=== PATIENT | female | born 1960 | race Hispanic/Latino ===

== ENCOUNTER 2016-09-09 06:07 | Day surgery (SDC) | payer OTHER, MEDICARE ==
[2016-08-20 10:06] VITALS: BMI 21.7
[2016-09-09 06:50] LABS: CALCIUM 8.5 mg/dL (8.4-10.5)
[2016-09-09] MEDS ORDERED: Bupivacaine 0.5% Inj(30mL) ONE ×2 (07:31→07:35)
[2016-09-09] MEDS ORDERED: Thrombin Topical 20,000 Intl Units Spray Kit TOP ONE (07:31)
[2016-09-09] MEDS ORDERED: Lidocaine 1% Inj (20ml) ONE (07:31)
[2016-09-09] MEDS ORDERED: Lidocaine 2% Inj (20ml) ONE (07:35)
[2016-09-09] MEDS ORDERED: Midazolam 2 MG/2 ML VIAL ONE ×2 (07:54→08:19)
[2016-09-09] MEDS ORDERED: Insulin Regular 100 units/ml ONE (07:58)
[2016-09-09] MEDS ORDERED: Phenylephrine 10 mg/ml Inj ONE (09:45)
[2016-09-09] MEDS ORDERED: Acetaminophen IV 1,000 MG in Premixed IV 100 EA IVPB PRN (10:09)
[2016-09-09] MEDS ORDERED: Oxycodone/Acetaminophen 5/325 mg Tab PO PRN (10:10)
--- NOTE | 2016-09-09 10:15 | PCM.SURG1 ---
Surgeon's Initial Post Op Note - Surgeon's Notes Surgeon: Dr. Arnold Chef Saucier: Dr. Cassidy PGY2, Dr. Martini PGY1 Type of Anesthesia: IV Sedation, Local Pre-Operative Diagnosis: End Stage Renal Disease Operative Findings: see operative note Post-Operative Diagnosis: same Operation Performed: Left Brachial AV Fistula Specimen/Specimens Removed: none Estimated Blood Loss: EBL {In ML}: 5 Drains Used: No Drains Post-Op Condition: Good Date of Surgery/Procedure: 09/09/16 Time of Surgery/Procedure: 09:30
[2016-09-09] MEDS ORDERED: Acetaminophen IV IVPB ONE (10:30)
[2016-09-09 11:02] VITALS: PULSE 56
[2016-09-09 11:33] VITALS: RESP 20
[2016-09-09 12:01] VITALS: BP 146/67; TEMP 98; O2SAT 95
--- NOTE | 2016-09-21 09:42 | OP ---
DATE OF THE OPERATION: 09/09/2016 PREOPERATIVE DIAGNOSES: End-stage renal disease and coronary artery disease. POSTOPERATIVE DIAGNOSES : End-stage renal disease and coronary artery disease. PROCEDURE PERFORMED: 1. Left upper arm vein mapping in preparation for the fistula creation. 2. Left upper arm AV fistula creation via the cephalic vein transposition. SURGEON: Ralph Arnold MD GEAR CUTTER: Dr. Cassidy ANESTHESIOLOGIST: Karthik Jarrell MD TYPE OF ANESTHESIA: IV sedation with local anesthesia. ESTIMATED BLOOD LOSS: Minimal. SPECIMEN: None. INDICATIONS FOR THE PROCEDURE: The patient is a 55-year-old female with significant history of cardiac failure who has been on dialysis via the tunneled catheter and is currently dialysis dependent. The patient was brought in creation of an AV fistula in order to remove the tunneled catheter and avoid infections. DESCRIPTION OF PROCEDURE: The patient was brought to the operating room and placed on operating table in a supine position. The patient was connected to EKG, blood pressure, and pulse monitors. The patient then underwent MAC anesthesia and was prepped and draped in the usual sterile fashion. First, using sterile probe, careful evaluation of the upper arm veins revealed the presence of a cephalic vein, which was decent size measuring about 4 to 5 mm in the upper arm and about 4 mm in the area of the antecubital fossa. The brachial artery was all set about 3.5 mm at that location. The only __245___ was that the cephalic vein appear to be located quite laterally and needed to be transposed in order to reapproximate it to the brachial artery. Once this evaluation was done and the vein was marked on the skin as well as all the side branches were marked, I then proceeded with the operation. First a standard time-out procedure took place and everybody in the room agreed as to the patient's identify, diagnoses, and procedure to be performed. Using lidocaine mixed with Marcaine, the antecubital fossa area of incision was infiltrated and careful incision was made transversely. Careful dissection was done through the subcutaneous fat until the cephalic vein was exposed laterally. The cephalic vein was then carefully mobilized after being marked in for appropriate positioning and then carefully all the side branches were ligated using 4-0 Silk ties. Flap was raised superiorly in order to be able to mobilize adequate length of the cephalic vein in order to bring it down to the brachial artery. Once this was done and the patient received 4000 units of heparin to circulate prior to the cross clamping for 2 minutes, I then proceeded with dissecting out the brachial artery and elevated it on the vessel loops. The cephalic vein was transected distally and brought over to the brachial artery. A standard end-to-side anastomosis was created using 6-0 Prolene stitches in a dividing fashion. The anastomosis was about 1.5 cm long. Once it completed, the anastomosis was tested by opening the first distal artery and then proximal flow. There was good palpable thrill in the vein for about 10 cm from the anastomosis. There was excellent hemostasis. The wound was now copiously irrigated and all the irrigant fluid was suctioned out and the patient's wound was closed using 3-0 Vicryl for deep dermal layers and 4-0 Monocryl for skin. Sterile Dermabond dressing was applied to the wound. The patient tolerated the procedure well without complications. The patient was awakened and transferred to the recovery room for further observation. Ralph Arnold MD
== END 2016-09-09 12:23 | disposition home or self-care (01) ==
LOC: SDS 06:07
PROVIDERS: ATTEND General Practice
DX: I50.42 Chronic combined systolic (congestive) and diastolic (congestive) heart failure (principal); I13.2 Hypertensive heart and chronic kidney disease with heart failure and with stage 5 chronic kidney disease, or end stage renal disease; E11.22 Type 2 diabetes mellitus with diabetic chronic kidney disease; N18.6 End stage renal disease; I25.10 Atherosclerotic heart disease of native coronary artery without angina pectoris; I38 Endocarditis, valve unspecified; D64.9 Anemia, unspecified; E78.5 Hyperlipidemia, unspecified; Z79.4 Long term (current) use of insulin; E11.42 Type 2 diabetes mellitus with diabetic polyneuropathy
CPT/HCPCS: 36415; 36821; 80048; G0365; J0131; J0690; J1644 ×2; J2250; J2370; J3010

== ENCOUNTER 2017-01-02 23:21 | Inpatient (IN) | payer MEDICARE, OTHER ==
[2017-01-02 23:25] VITALS: BMI 24.3
--- NOTE | 2017-01-02 23:55 | ED PDOC ---
Arrival/HPI - General Time Seen by Provider: 01/02/17 23:30 Historian: Patient - History of Present Illness Narrative History of Present Illness (Text): 01/02/17 23:45 Gabriela Burgos is a 56 year old female, whose past medical history includes CAD with coronary stents, IDDM, stage IV chronic kidney disease, hypertension, CHF, and chronic anemia, who presents to the Emergency department complaining of feeling of shortness of breath tonight.Patient denies any associated chest pain. Patient notes she was fully dialyzed earlier today without any issues. Patient states she took nebulizer treatments at home without significant relief. Patient denies any nausea, vomiting, diarrhea, back pain, neck pain, headache, dizziness, or any other complaints. Symptom Onset: Gradual Symptom Course: Unchanged Activities at Onset: Light Context: Home Past Medical History - Provider Review Nursing Documentation Reviewed: Yes - Infectious Disease Hx of Infectious Diseases: None - Tetanus Immunization Tetanus Immunization: Unknown - Reproductive Menopause: Yes - Cardiac Hx Hypertension: Yes Hx Pacemaker: No - Pulmonary Hx Respiratory Disorders: No - Neurological Hx Paralysis: No - HEENT Hx HEENT Disorder: No - Renal Hx Renal Disorder: Yes (Stage IV) Date of Last Dialysis Treatment: 01/02/17 - Endocrine/Metabolic Hx Endocrine Disorders: Yes Hx Diabetes Mellitus Type 1: Yes - Hematological/Oncological Hx Blood Transfusion Reaction: No (SEVERE REACTION TO IRON INFUSION) - Integumentary Hx Dermatological Disorder: Yes (BILATERAL LEG EDEMA + 2,DEPENDENT EDEMA MAINLY TO ABOVE KNEE AREA.TATTOOS.) - Musculoskeletal/Rheumatological Hx Musculoskeletal Disorders: No - Gastrointestinal Hx Gastrointestinal Disorders: No - Genitourinary/Gynecological Hx Genitourinary Disorders: No (REMOVAL OF PRECANCEROUS CELLS/ UTERUS) - Psychiatric Hx Emotional Abuse: No Hx Physical Abuse: No Hx Substance Use: No - Surgical History Hx Cardiac Catheterization: Yes (04/2015) Hx Coronary Stent: Yes (CX/RCA) - Anesthesia Hx Anesthesia: Yes Hx Anesthesia Reactions: No Hx Malignant Hyperthermia: No - Suicidal Assessment Feels Threatened In Home Enviroment: No Family/Social History - Physician Review Nursing Documentation Reviewed: Yes Family/Social History: Unknown Family HX Smoking Status: Former Smoker Hx Alcohol Use: No Hx Substance Use: No Hx Substance Use Treatment: No Allergies/Home Meds Allergies/Adverse Reactions: Allergies iron sucrose complex [From Venofer] Allergy (Severe, Verified 01/02/17 23:25) ITCHING,SWELLING OCCURED 11/07 9AM AT HOSPITAL. ONLY REPORTED ITCHING, NO SOB Home Medications: Home Meds Medication Instructions Recorded Confirmed Alprazolam 0.5 mg PO BID PRN 04/19/15 01/02/17 Insulin Detemir [Levemir] 10 unit SC HS 03/05/16 01/02/17 Insulin Lispro [humALOG] 7 units SC TID PRN 03/05/16 01/02/17 Calcium Acetate [Phoslo] 2 tab PO ACTID 05/06/16 01/02/17 amLODIPine [Norvasc] 5 mg PO DAILY 05/06/16 01/02/17 traZODone [trazODONE HYDROCHLORIDE] 50 mg PO HS 05/06/16 01/02/17 Albuterol/Ipratropium [Duoneb 3 3 ml IH Q4H 08/20/16 01/02/17 MG/3 Ml-0.5 MG/3 Ml 3 Ml] traMADol [Ultram] 50 mg PO Q6 09/09/16 01/02/17 Furosemide [Lasix] 1 tab PO DAILY 01/02/17 01/02/17 Lanthanum [Fosrenol] 1 tab PO DAILY 01/02/17 01/02/17 Review of Systems - Physician Review All systems were reviewed & negative as marked: Yes - Review of Systems Constitutional: Normal. absent: Fevers Eyes: Normal ENT: Normal Respiratory: SOB. absent: Cough Cardiovascular: Chest Pain Gastrointestinal: Normal. absent: Abdominal Pain, Diarrhea, Nausea, Vomiting Genitourinary Female: Normal. absent: Dysuria, Frequency, Hematuria, Urine Output Changes Musculoskeletal: Normal. absent: Back Pain, Neck Pain Skin: Normal. absent: Rash Neurological: Normal. absent: Headache, Dizziness Endocrine: Normal Hemo/Lymphatic: Normal Psychiatric: Normal Physical Exam Vital Signs Reviewed: Yes Vital Signs Temp Pulse Resp BP Pulse Ox 01/03/17 03:32 18 01/03/17 01:54 EST 98.8 F 62 18 106/84 01/03/17 01:21 EDT 98.4 F 67 18 122/80 01/02/17 23:33 100.4 F H 82 18 107/54 L 94 L Temperature: Febrile Blood Pressure: Normal Pulse: Regular Respiratory Rate: Normal Appearance: Positive for: Well-Appearing, Non-Toxic, Comfortable Pain Distress: None Mental Status: Positive for: Alert and Oriented X 3 Finger Stick Blood Glucose: 330 - Systems Exam Head: Present: Atraumatic, Normocephalic Pupils: Present: PERRL Extroacular Muscles: Present: EOMI Conjunctiva: Present: Normal Mouth: Present: Moist Mucous Membranes Neck: Present: Normal Range of Motion Respiratory/Chest: Present: Rhonchi. No: Respiratory Distress, Accessory Muscle Use Cardiovascular: Present: Regular Rate and Rhythm, Normal S1, S2. No: Murmurs Abdomen: Present: Normal Bowel Sounds. No: Tenderness, Distention, Peritoneal Signs Back: Present: Normal Inspection Upper Extremity: Present: Normal Inspection. No: Cyanosis, Edema Lower Extremity: Present: Normal Inspection. No: Edema Neurological: Present: GCS=15, CN II-XII Intact, Speech Normal Skin: Present: Warm, Dry, Normal Color. No: Rashes Psychiatric: Present: Alert, Oriented x 3, Normal Insight, Normal Concentration Medical Decision Making ED Course and Treatment: 01/02/17 23:45 Impression: 56 year old female complaining of shortness of breath and chest pain tonight. Plan: -- EKG -- CXR -- Labs, cardiac enzymes, BNP, blood culture -- Reassess and disposition Prior Visits: Notes and results from previous visits were reviewed. On 03/05/2016, pt was seen in the Emergency department for shortness of breath, chest pain, and decreased appetite. Pt was admitted to the hospital for further evaluation. Progress Notes: Reviewed EKG, NSR at 77 bpm. LVH with repolarization abnormality. Non-specific ST/T wave changes. Unchanged from previous EKG on 08/20/2016. 01/03/17 01:04 EDT Labs noted, Hgb: 6.8, Hct: 20.8. Blood type and screen ordered. Will transfuse pt. 01/03/17 01:43 EDT Reviewed radiology, CXR shows no acute processes. 01/03/17 01:52 EDT Case discussed with Dr. Cardona, who is aware and agrees with plan. Accepts pt in to his service. Pt will be admitted to Telemetry for anemia and dyspnea. Requests Dr. Gleason on consult. - Lab Interpretations Lab Results: 01/03/17 00:08 01/03/17 00:08 Lab Results 01/03/17 00:08: WBC 12.0 H D, RBC 2.22 L, Hgb 6.8 L*, Hct 20.8 L*, MCV 93.7, MCH 30.6, MCHC 32.7, RDW 13.4, Plt Count 259, MPV 10.1 01/03/17 00:08: Sodium 129 L, Potassium 3.2 L, Chloride 88 L, Carbon Dioxide 27 , Anion Gap 17, BUN 29 H, Creatinine 3.8 H, Est GFR ( Amer) 15, Est GFR ( Non-Af Amer) 12, Random Glucose 263 H, Calcium 8.6, Total Bilirubin 0.7, AST 23 , ALT 14, Alkaline Phosphatase 96, Lactate Dehydrogenase 485, Total Creatine Kinase 61, Troponin I 0.78 H*, NT-Pro-B Natriuret Pep 72775 H, Total Protein 6.5 , Albumin 3.5, Globulin 3.0, Albumin/Globulin Ratio 1.2 01/03/17 00:08: PT 12.6 H, INR 1.15 H, APTT 21.7 L I have reviewed the lab results: Yes - RAD Interpretation Radiology Orders: 01/02/17 23:47 CHEST PORTABLE [RAD] Stat Technical Support Associate: ED Physician - EKG Interpretation Interpreted by ED Physician: Yes Type: 12 lead EKG - Medication Orders Current Medication Orders: Discontinued Medications Ceftriaxone Sodium (Rocephin 1 Gram Ivpb) 1 gm in 100 mls @ 200 mls/hr IV ONCE STA PRN Reason: Protocol Stop: 01/03/17 02:16 Last Admin: 01/03/17 03:38 Dose: 200 mls/hr eMAR Start Stop Document 01/03/17 03:38 MARIELENA (Rec: 01/03/17 03:38 MARIELENA [id number]) Intravenous Solution Start Date 01/03/17 Start Time 03:38 End Date 01/03/17 End time 04:08 Total Infusion Time 30 - Scribe Statement The provider has reviewed the documentation as recorded by the Scribriaz Franklin All medical record entries made by the Scribe were at my direction and personally dictated by me. I have reviewed the chart and agree that the record accurately reflects my personal performance of the history, physical exam, medical decision making, and the department course for this patient. I have also personally directed, reviewed, and agree with the discharge instructions and disposition. Disposition/Present on Arrival - Present on Arrival Any Indicators Present on Arrival: No History of DVT/PE: No History of Uncontrolled Diabetes: Yes Urinary Catheter: No History of Decub. Ulcer: No History Surgical Site Infection Following: None - Disposition Have Diagnosis and Disposition been Completed?: Yes Diagnosis: Anemia, ESRD (end stage renal disease) Disposition: HOSPITALIZED Disposition Time: 01:00 Condition: STABLE
[2017-01-03 00:35] LABS: ALB/GLOB RATIO 1.2 (1.1-1.8); BILIRUBIN,TOTAL 0.7 mg/dL (0.2-1.3); CALCIUM 8.6 mg/dL (8.4-10.5); POTASSIUM 3.2 mmol/L (3.6-5.0); TOTAL PROTEIN 6.5 g/dL (5.8-8.3)
[2017-01-03 00:42] LABS: MEAN CELL VOLUME 93.7 fl (80.0-105.0); MEAN CORPUSCULAR HEMOGLOBIN 30.6 pg (25.0-35.0); MEAN CORPUSCULAR HGB CONC 32.7 g/dl (31.0-37.0); MEAN PLATELET VOLUME 10.1 fl (7.0-11.0); RED CELL DISTRIBUTION WIDTH 13.4 % (11.5-14.5)
[2017-01-03 00:44] LABS: HEMATOCRIT 20.8 % (36.0-48.0)
[2017-01-03 00:49] LABS: INR 1.15 (0.93-1.08); PARTIAL THROMBOPLASTIN TIME 21.7 Seconds (25.1-36.5); TROPONIN I 0.78 ng/mL
[2017-01-03 01:32] LABS: VENOUS BLOOD GAS BASE EXCESS 7.6 mmol/L (0.0-2.0); VENOUS BLOOD PH 7.48 (7.32-7.43)
[2017-01-03] MEDS ORDERED: cefTRIAXone 1 gm 1 GM/100 ML BAG IV STA (01:47)
[2017-01-03] MEDS ORDERED: Albuterol-Ipratrop 3 mg / 0.5 (3 ml) UD IH PRN (08:04)
[2017-01-03] MEDS: Insulin Reg-MEDIUM-Coverage SC SCH ×4 (09:16→21:26)
--- NOTE | 2017-01-03 09:44 | RAD ---
HISTORY: Shortness of breath. COMPARISON: 08/20/2016. FINDINGS: LUNGS: No active pulmonary disease. PLEURA: No significant pleural effusion identified, no pneumothorax apparent. CARDIOVASCULAR: No radiographic findings to suggest acute or significant cardiovascular disease. Venous access catheter in stable, satisfactory position. OSSEOUS STRUCTURES: No significant abnormalities. VISUALIZED UPPER ABDOMEN: Normal. OTHER FINDINGS: None. IMPRESSION: No active disease. No significant interval change compared to the prior examination(s). Please note: No preliminary interpretation of this examination rendered by emergency department personnel (Physician and/or PA were non-compliant in providing, as requested, preliminary report of their findings/ observations).
--- NOTE | 2017-01-03 11:04 | CON ---
CARDIOLOGY CONSULTATION DATE OF CONSULTATION: 01/03/2017 HISTORY: The patient is a 56-year-old woman who presents with chest pain. She was found to have mildly elevated troponins consistent with a non-STEMI. The patient's past medical history is notable for end-stage renal disease in which she is currently on dialysis. She has documented aortic stenosis in which they have been plans for TAVR. Once her fistula is matured, her CHF symptoms can be controlled with dialysis. She has had documented coronary artery disease in the past in which cardiac catheterization intervention has been limited due to her recurrent CHF secondary to her end-stage renal disease. Her cardiac risk factors include diabetes mellitus, hypertension, and hypercholesterolemia. SOCIAL HISTORY: The patient is a former smoker. REVIEW OF SYSTEMS: A 14-point review of systems was reviewed in detail. There is no more angina. Her dyspnea is resolved. She is receiving blood for low hemoglobin. PHYSICAL EXAMINATION: VITAL SIGNS: Blood pressure is 132/96, the heart rate is in the 90s. NECK: Negative JVD. LUNGS: Decreased breath sounds without rales. HEART: Reveals 3/6 systolic ejection murmur. EXTREMITIES: Without edema. EKG shows normal sinus rhythm with diffuse ST depressions. LABORATORY DATA: Hemoglobin is 6.8. Chemistries, troponin is 0.78 with a ProBNP of 71,000; glucose is 263. IMPRESSION: 1. Non-ST elevation myocardial infarction. 2. History of critical aortic stenosis. 3. History of multivessel coronary artery disease. 4. End-stage renal disease. 5. Diabetes mellitus. 6. Congestive heart failure. 7. Chronic obstructive pulmonary disease. Given these findings, the patient is receiving 2 units of packed red blood cells today. In the morning, we will schedule for a cardiac catheterization for angioplasty of her critical coronary lesions. Once this is done, the patient will have dialysis. After dialysis and documented maturity of her shunt, we will remove her central line. Once this is able to be done, we will transfer the patient to [facility] for TAVR. William Chauhan MD
[2017-01-03] MEDS ORDERED: Insulin Lispro 1 UNITS/0.01 ML SC SCH (11:30)
--- NOTE | 2017-01-03 12:22 | CARD ---
APPROVED REPORT EKG Measurement Heart [id number] CT [id number] [id number] <Conclusion> Normal sinus rhythm Left ventricular hypertrophy with repolarization abnormality Consider lateral ischemia Prolonged QT Abnormal ECG
[2017-01-03] MEDS: Albuterol-Ipratrop 3 mg / 0.5 (3 ml) UD IH SCH ×2 (13:51→20:16)
[2017-01-03] MEDS ORDERED: Insulin Regular 1 UNITS/0.01 ML ML SC STA (17:06)
[2017-01-03] MEDS ORDERED: Insulin Lispro 1 UNITS/0.01 ML SC ONE (17:15)
--- NOTE | 2017-01-03 18:17 | CON ---
NEPHROLOGY CONSULTATION HISTORY OF PRESENT ILLNESS: A 56-year-old female with past medical history of hypertension, diabetes, CAD status post stent 04/2015) severe aortic stenosis and ESRD, on hemodialysis (since 2015, TTS at [facility] under [facility]), presented to ED yesterday with sudden onset of shortness of breath and chest pain, found to be severely anemic. Nephrology being consulted for ESRD care. The patient reports feeling tired since several days. However, went to dialysis session yesterday morning without incident; denies having had any shortness of breath at that time; however, late yesterday evening the patient was sitting on sofa and started experiencing shortness of breath and chest pressure (described as someone sitting on her). The patient otherwise denies any overt bleeding, denies any black stools, denies any nausea or vomiting, denies any bleeding from left arm AV fistula. PAST MEDICAL HISTORY: As above, status post RCA stent in 04/2015; the patient in need of TAVR procedure; however, was awaiting discontinuation of dialysis catheter prior to procedure. SOCIAL HISTORY: Previous smoker. FAMILY HISTORY: . REVIEW OF SYSTEMS: CONSTITUTIONAL: Reports feeling tired also with chills yesterday. HEENT: Sore throat since last 3 days, otherwise no blurry vision. RESPIRATORY: Reports some cough. CARDIOVASCULAR: As per HPI. GASTROINTESTINAL: As per HPI. GENITOURINARY: Has been urinating less lately, diuretic changed from Lasix to torsemide recently, denies any dysuria. MUSCULOSKELETAL: Reporting sharp joint pains involving her ankles lately, otherwise, has been having left hand pain associated with her AV fistula placement but is improving. SKIN: . PSYCHIATRIC: . NEUROLOGIC: Reporting some feeling of tinnitus involving her right ear. PHYSICAL EXAMINATION: VITAL SIGNS: Blood pressure 122/57, heart rate 69, respirations 16, temperature 98.9, O2 sat documented less than 94%. GENERAL: No distress. Conversing coherently in full sentences. HEENT: Moist mucous membranes. Nonicteric. NECK: No cervical lymphadenopathy. RESPIRATORY: Mild right basal rales otherwise clear to auscultation bilaterally. No rhonchi, no wheezes. CARDIOVASCULAR: Loud systolic murmur (chronic). No gallops, no rubs. GASTROINTESTINAL: Abdomen is soft, nontender, nondistended. GENITOURINARY: No bladder distention. EXTREMITIES: No leg edema. SKIN: Warm. No cyanosis. PSYCHIATRIC: Normal mood, normal affect. NEUROLOGIC: 5/5 bilateral upper and lower extremity motor. LABORATORY DATA: On presentation, CBC: WBC 12.0, hemoglobin 6.8, hematocrit 20.8, platelet 259. Chemistry panel: Sodium 129, potassium 3.2, chloride 88, bicarb 27, BUN 29, creatinine 3.8, glucose 263, calcium 8.6, troponin 0.78, albumin 3.5. Pro-BNP 71,100. Troponin increasing this morning to 5.03. Chest x-ray directly visualized, appears clear. No pulmonary venous congestion apparent. ASSESSMENT AND PLAN: 1. Symptomatic anemia. The patient with hemoglobin of 10.6 last month which was in normal range for dialysis. The patient with low iron saturation, and therefore, was loaded with IV iron. Repeat labs in early this month showed hemoglobin had dropped to 7.8 and iron saturation was still low; no overt history of blood loss; however, suspect GI bleeding in the patient with otherwise stable hemoglobin previously. Agree with blood transfusion. Recommend GI consultation to assess for possible upper and/or lower endoscopy. 2. Non-ST segment elevation myocardial infarction. The patient with history of coronary artery disease, current non-ST segment elevation myocardial infarction possibly due to demand ischemia in the setting of symptomatic anemia; however, in light of previous history we will await cardiology;s decision for possible cardiac cath. 3. Severe aortic stenosis. The patient is in need of TAVR procedure, especially with finding of mild systolic dysfunction seen on previous echo; clubhouse attendant at tertiary center is following and wanted hemodialysis catheter to be discontinued before attempting placement of any prosthetic valve to avoid infectious complications; the patient now has a newly placed left arm AV fistula which is being used adequately; HD catheter scheduled to come out in about 10 days. 4. End-stage renal disease, on hemodialysis, relatively stable electrolyte status. The patient with mild rales on exam and may be developing volume overload in the setting of PRBC transfusion; the patient still makes some urine, and therefore, we will give her 80 mg of IV Lasix after each transfusion. 5. Coronary artery disease-mineral bone disease. The patient on sevelamer 2 tablets with meals. We will continue the same for hyperphosphatemia which has been relatively well controlled of late. 6. Hypertensive chronic kidney disease. The patient on metoprolol 50 mg b.i.d. and amlodipine 5 mg daily and torsemide 100 mg b.i.d., giving IV Lasix as well as torsemide as mentioned above. Thank you for this consult. We will be following closely. Tom Gleason MD
[2017-01-03] MEDS ORDERED: Insulin Detemir 100 units/ml Vial (Levemir) SC SCH (22:00)
--- NOTE | 2017-01-04 01:19 | HP ---
HISTORY OF PRESENT ILLNESS: The patient is a 56 year old woman with a past medical history of CAD s/p PCI with stent placment, chronic systolic heart failure, severe (pending TAVR), ESRD on HD and anemia of chronic disease who presented to [facility] ED with a several day history of progressively worsening substernal chest discomfort, lethargy and malaise. The patient has reported increasing fatigability over the preceding several days associated with marked dyspnea with exertion. She denied melena, hematochezia, vaginal bleed or bright red blood per rectum. Given her underlying cardiac illness she opted for ED evaluation given her symptoms. Upon arrival to the ED she was noted to be afebrile and hemodynamically stable. Physical examination was largely unremarkable. Laboratory studies on admission demonstrated Hb of 6.8, (baseline Hb 9-10) and an elevated troponin of 0.78. EKG demonstrated no changes. She was subsequently admitted to the telemetry villeda for management of [id number] PR, symptomatic anemia, and acute on chronic systolic heart failure exacerbation. PAST MEDICAL HISTORY: As per HPI, also IDDM, HTN, hyperlipidemia PAST SURGICAL HISTORY: As per HPI. MEDICATIONS: Aspirin 81 mg p.o. daily, Plavix 75 mg p.o. daily, Lipitor 40 mg p.o. daily, Norvasc 5 mg p.o. daily, Lopressor 50 mg p.o. b.i.d., Lasix 40 mg p.o. daily, Levemir 10 units SC at bedtime, Humalog 7 units SC t.i.d. with meals , Trazodone 50 mg p.o. at bedtime. ALLERGIES: IRON SUCROSE COMPLEX. FAMILY HISTORY: Noncontributory. SOCIAL HISTORY: The patient report a former 30-pack year smoking history, but quit approximately 16 months ago. She reports social alcohol use and denies illicit drug abuse. REVIEW OF SYSTEMS: A 14-point review systems is negative except as per HPI. PHYSICAL EXAMINATION: VITAL SIGNS: Temperature 98.7, pulse 69, blood pressure 124/59, respiratory rate 18, oxygen saturation 96% on 2 liters nasal cannula. GENERAL: No apparent distress. HEENT: PERRL. EOMI. Mild conjunctival pallor is noted. No scleral icterus noted. NECK: No JVD. LUNGS: Decreased breath sounds at the bases with few scattered rhonchi. CARDIOVASCULAR: Regular rate and rhythm. Normal S1 and S2. Grade 4/6 systolic ejection murmur to right upper sternal border. ABDOMEN: Normoactive bowel sounds. Soft, nontender, nondistended. EXTREMITIES: 1+ lower extremity edema bilaterally. NEUROLOGIC: Awake, alert, and oriented x3. No focal motor deficit. LABORATORY DATA: WBC 12, hemoglobin 6.8, hematocrit 21, platelets 259. Sodium 129, potassium 3.2, chloride 88, bicarb 27, BUN 29, creatinine 3.8, glucose 257, troponin 0.78, 5.03 (2 sets), BNP 71,100. IMAGING STUDIES: Chest x-ray demonstrates no active disease. DIAGNOSTIC STUDIES: EKG demonstrates normal sinus rhythm at 77 beats per minute with nonspecific ST- T changes. ASSESSMENT: The patient is a 56 year old woman with a multiple medical comorbidities including CAD s/p PCI with stent, chronic systolic heart failure, severe , ESRD on HD and anemia of chronic disease who presented for evaluation of a several day history of worsening malaise, fatigue and dyspnea and was admitted to the telemetry villeda for management of [id number] myocardial infarction and severe symptomatic anemia. PLAN: 1. NSTEMI. Input from Dr. Chauhan noted and appreciated. The patient is scheduled for cardiac catheterization tomorrow. In the interim, we will monitor hemodynamics and cycle cardiac enzymes. Continue with aspirin, Plavix and beta blockade. 2. Anemia of chronic disease secondary to underlying chronic kidney disease with acute drop in hemoglobin. The patient noted to have a baseline hemoglobin of 9 to 10. She denies any overt blood loss. We will consult with Dr. Rubi for further evaluation. 3. Chronic systolic heart failure. As above input from Dr. Chauhan noted. Repeat TTE is pending. 4. ESRD on HD. Input from Dr. Gleason noted. The patient to be scheduled for hemodialysis after cardiac catheterization tomorrow. 5. Hypertension. Blood pressure controlled. Continue with current medication. 6. CAD s/p PCI with stent placement. Continue with aspirin, Plavix and Lipitor. 7. COPD. Continue with supplemental oxygen and bronchodilators as needed. 8. IDDM. Continue with Levemir 10 units SC at bedtime and Humalog 7 units SC t.i.d. with meals. 9. Severe aortic stenosis. Arrangements will be made to pursue TAVR once the patient's AV fistula has matured. 10. Hyperlpidemia. Continue Lipitor 40mg PO daily 11. Prophylaxis, GI prophylaxis not indicated as the patient is eating. DVT prophylaxis not indicated as the patient is ambulatory. CODE STATUS: Full code. Ole Cardona MD MTDD
[2017-01-04] MEDS: Albuterol-Ipratrop 3 mg / 0.5 (3 ml) UD IH SCH ×4 (01:38→19:37)
[2017-01-04 06:34] LABS: BASO # 0.01 K/mm3 (0.0-2.0); BASO % 0.1 % (0.0-3.0); EOS # 0.2 (0.0-0.7); EOS % 1.4 % (1.5-5.0); GRAN # 8.28 (1.4-6.5); GRAN % 75.2 % (50.0-68.0); HEMATOCRIT 31.5 % (36.0-48.0); LYMPH # 1.6 (1.2-3.4); LYMPH % 14.9 % (22.0-35.0); MEAN CORPUSCULAR HEMOGLOBIN 29.9 pg (25.0-35.0); MEAN CORPUSCULAR HGB CONC 33.7 g/dl (31.0-37.0); MEAN PLATELET VOLUME 10.2 fl (7.0-11.0); MONO # 0.9 (0.1-0.6); MONO % 8.4 % (1.0-6.0); RED CELL DISTRIBUTION WIDTH 15.3 % (11.5-14.5)
[2017-01-04 07:02] LABS: ALB/GLOB RATIO 1.1 (1.1-1.8); BILIRUBIN,TOTAL 0.6 mg/dL (0.2-1.3); CALCIUM 8.6 mg/dL (8.4-10.5); POTASSIUM 3.9 mmol/L (3.6-5.0); TOTAL PROTEIN 6.4 g/dL (5.8-8.3)
[2017-01-04] MEDS: Insulin Lispro 1 UNITS/0.01 ML SC SCH ×3 (07:23→16:30)
[2017-01-04] MEDS: Insulin Reg-MEDIUM-Coverage SC SCH ×4 (07:24→21:25)
[2017-01-04 07:43] LABS: IRON 33 ug/dL (45-180)
[2017-01-04] MEDS ORDERED: Lidocaine 2% Inj (20ml) ONE (08:11)
[2017-01-04] MEDS ORDERED: Midazolam 2 MG/2 ML VIAL ONE ×2 (08:12→09:10)
[2017-01-04] MEDS ORDERED: Iodixanol 320 MG/ML 200 ML BOTTLE IV ONE (08:12)
[2017-01-04] MEDS ORDERED: Nitroglycerin 50mg in D5W 50 MG/250 ML BOTTLE IV ONE (08:13)
--- NOTE | 2017-01-04 09:08 | CON ---
DATE: 01/04/2017HISTORY OF PRESENT ILLNESS: Ms. Burgos is a 56-year-old female admitted to the hospital with substernal pain for past few days. She has history of severe aortic stenosis, congestive cardiac failure. She also has end-stage renal disease, currently on hemodialysis; insulin-dependent diabetes mellitus and hypertension. She was found to have hemoglobin of 6.8 in the ED. She received 2 units of blood transfusion. She also developed non-STEMI with elevated troponin's. She is scheduled for cardiac catheterization today. Denies any chest pain. No shortness of breath. No bleeding from any side. She has reaction to IV iron few years ago when she developed swelling of the entire body which resolved within an hour. She denies any problem with oral iron when she took it long-time ago during her pregnancies. PAST MEDICAL HISTORY: Severe aortic stenosis, congestive cardiac failure, insulin-dependent diabetes mellitus, hypertension, hyperlipidemia, and end-stage renal disease. PAST SURGICAL HISTORY: Coronary artery stent placement. HOME MEDICATIONS: Aspirin 81 mg daily, Plavix 75 mg daily, Lipitor 40 mg daily, Norvasc 5 mg daily, Lopressor 50 mg p.o. b.i.d., Lasix 40 mg daily, Levemir 10 units sliding scale insulin, trazodone 50 mg at bedtime. ALLERGIES: IV IRON. FAMILY HISTORY: Noncontributory. REVIEW OF SYSTEMS: As per HPI. Rest of 12-point review of systems reviewed and negative. PHYSICAL EXAMINATION GENERAL: Comfortable in bed, in no acute distress. VITAL SIGNS: Temperature 98.7, heart rate is 80 per minute, blood pressure 124/60, respiratory rate 18 per minute, oxygen saturation 98% oxygen by nasal cannula. HEENT: Pallor positive. NECK: No lymphadenopathy. CHEST: Air entry present and equal bilaterally. No added sounds. CARDIOVASCULAR: S1 and S2 normal. No murmur. No gallop. ABDOMEN: Soft and nontender. No hepatosplenomegaly. EXTREMITIES: 1+ edema bilateral. NEUROLOGICAL: Awake, alert, oriented x3. No focal sensory motor deficit. LABORATORY DATA: Labs on admission, white count 12,000, hemoglobin 6.8, hematocrit 20.8, platelet count 259. Current CBC: White count 11, hemoglobin 10.6, hematocrit 31.5, platelet 248. Sodium 128, potassium 3.9, creatinine 5.8, iron 33, percentage saturation 15, ferritin pending. B12, folate pending. Also LDH 485. ASSESSMENT: 1. Severe iron deficiency anemia. 2. Anemia related to end-stage renal disease. 3. Non-ST segment elevation myocardial infarction. 4. Severe aortic stenosis. 5. Hypertension. 6. Diabetes mellitus. PLAN: Iron studies shows severe iron deficiency. SHE WAS ALLERGIC TO IV IRON. We can try oral iron repletion with ferrous sulfate 325 mg p.o. daily. She has taken PO iron during pregnancies long time ago. She is getting Aranesp 40 mcgm weekly. Aranesp can be increased to 200 mcgm monthly. She is planned for cardiac catheterization today. Hemoglobin has improved to 10.6 , s/p 2 units of PRBC. Thank you Dr. Cardona, for allowing us to participate in Ms. Burgos's care. Diandra Rubi MD MTDDavid
[2017-01-04] MEDS ORDERED: Sodium Chloride 0.45% 1,000 ML IV SCH (09:45)
--- NOTE | 2017-01-04 11:49 | PN ---
SUBJECTIVE: The patient was seen and examined at bedside on the telemetry villeda. No acute events overnight. She remains afebrile, hemodynamically stable and chest pain free. This morning she is scheduled for cardiac catheterization with Dr. Chauhan given her admission for non-ST elevation NC. OBJECTIVE: VITAL SIGNS: Temperature 99.1, pulse 75, blood pressure 132/79, respiratory rate 18, oxygen saturations 94% on room air. GENERAL: No apparent distress. HEENT: PERRL. EOMI. No scleral icterus. Mild conjunctival pallor is noted. NECK: No JVD. LUNGS: Decreased breath sounds at the bases with few scattered wheeze. CARDIOVASCULAR: Regular rate and rhythm. Normal S1 and S2. Grade IV/ EVERARDO to RUSB ABDOMEN: Normoactive bowel sounds. Soft, nontender, and nondistended. EXTREMITIES: Trace lower extremity edema bilaterally. NEUROLOGIC: Awake, alert and oriented x3. No focal motor deficits. LABORATORY DATA: WBC 11, hemoglobin 10.6, hematocrit 31.5, and platelets 248. Sodium 128, potassium 3.9, chloride 90, bicarbonate 27, BUN 49, creatinine 5.8, and glucose 236. ASSESSMENT: The patient is a 56 year old woman with multiple medical comorbidities including CAD s/p PCI with stent placement, chronic systolic HF, severe , ESRD on HD, anemia of chronic disease and COPD who presented for evaluation of a several day history of worsening malaise, fatigue and dyspnea and who was admitted to the telemetry villeda for management of NSTEMI and symptomatic anemia. PLAN: 1. NSTEMI. Input from Dr. Chauhan noted and patient is being taken to the cardiac catheterization lab this morning. Continue with current medications and post catheterization care as per Dr. Chauhan. 2. Anemia of chronic disease secondary to underlying CKD. Labs demonstrate a gradual decline in her Hb over the past 3 months. Morning labs demonstrate improved Hb s/p transfusion of [address] Rubi (Heme/Onc) has been consulted for further anemia workup 3. Chronic systolic heart failure. Continue with care as per #1. 4. ESRD on HD. Input from Dr. Gleason noted. The patient to be dialyzed today after cardiac catheterization. 5. Hypertension: Blood pressure controlled. Continue Norvasc 5 mg p.o. daily 6. CAD s/p PCI with stent placement. Continue Aspirin 81 mg p.o. daily, Plavix 75 mg p.o. daily and Lipitor 40 mg p.o. daily. 7. COPD. Continue supplemental oxygen and bronchodilators as needed. 8. Insulin-dependant diabetes mellitus. Fingersticks have been elevated. Increase Levemir to 15 units SC QHS and increase Humalog to 10 units SC TID with meals. Continue with medium dose ISS for coverage. Continue monitoring fingerstick before meals and at bedtime. 9. Severe aortic stenosis. Arrangements will be made to pursue TAVR upon maturation of the patient's AV fistula. 10. Hyperlipidemia. Continue Lipitor 40 mg p.o. daily. 11. Prophylaxis. GI prophylaxis not indicated as the patient is eating. DVT prophylaxis not indicated as the patient is ambulatory. CODE STATUS: Full code. Ole Cardona MD MTDD
[2017-01-04 13:27] LABS: FOLATE 5.8 ng/mL
--- NOTE | 2017-01-04 13:34 | CP.PCM.PN ---
<Toney García - Last Filed: 01/04/17 13:31> Subjective - Date & Time of Evaluation Date of Evaluation: 01/04/17 Time of Evaluation: 12:33 - Subjective Subjective: PGY 2 Nephrology Note- Dr. Gleason's service Pt seen and examined in no acute distress. Patient states that she just returned from having cath procedure. She toelrated the procedure well. She is in some discomfort in her low back s/p procedure. She did not want to lie down in a supine position for such an extended period of time. She states that a Bridge Welder came to see her earlier this morning. She admits to having a bowel movement of normal consistency and color yesterday. She denies chest pain, hematochezia, palpitations, headaches, nausea, vomiting or swelling at this time. Objective - Vital Signs/Intake and Output Vital Signs (last 24 hours): Temp Pulse Resp BP Pulse Ox 98.5 F 65 18 139/71 94 L 01/04/17 12:05 01/04/17 12:17 01/04/17 12:05 01/04/17 12:05 01/04/17 05:53 Intake and Output: 01/04/17 01/04/17 06:59 18:59 Intake Total 0 Output Total 0 Balance 0 - Medications Medications: Current Medications Acetaminophen (Tylenol 325mg Tab) 650 mg PO Q6H PRN PRN Reason: Pain, moderate (4-7) Last Admin: 01/04/17 10:37 Dose: 650 mg Albuterol/Ipratropium (Duoneb 3 Mg/0.5 Mg (3 Ml) Ud) 3 ml IH Q2H PRN PRN Reason: Shortness of Breath Albuterol/Ipratropium (Duoneb 3 Mg/0.5 Mg (3 Ml) Ud) 3 ml IH [id number] [facility] Last Admin: 01/04/17 07:49 Dose: Not Given Alprazolam (Xanax) 0.5 mg PO TID PRN; Protocol PRN Reason: Anxiety Last Admin: 01/03/17 21:26 Dose: 0.5 mg Amlodipine Besylate (Norvasc) 5 mg PO DAILY [facility] Last Admin: 01/04/17 10:37 Dose: 5 mg Aspirin (Aspirin Chewable) 81 mg PO DAILY [facility] Last Admin: 01/04/17 10:35 Dose: Not Given Atorvastatin Calcium (Lipitor) 10 mg PO DIN [facility] Last Admin: 01/03/17 17:25 Dose: 10 mg Clopidogrel Bisulfate (Plavix) 75 mg PO DAILY [facility] Last Admin: 01/04/17 07:32 Dose: 75 mg Codeine Sulfate (Codeine) 30 mg PO Q8H PRN PRN Reason: Pain, moderate (4-7) Last Admin: 01/04/17 10:35 Dose: 30 mg Furosemide (Lasix) 80 mg IVP BID [facility] Last Admin: 01/04/17 10:00 Dose: Not Given Sodium Chloride (Sodium Chloride 0.45%) 1,000 mls @ 10 mls/hr IV .Q24H [facility] Last Admin: 01/04/17 10:37 Dose: 10 mls/hr Insulin Detemir (Levemir) 15 unit SC [facility] Insulin Human Lispro (Humalog) 10 units SC ACTID [facility] Last Admin: 01/04/17 07:23 Dose: Not Given Insulin Human Regular (Humulin R Med) 0 units SC ACHS [facility] PRN Reason: Protocol Last Admin: 01/04/17 07:24 Dose: Not Given Metoprolol Tartrate (Lopressor) 50 mg PO BRKDIN [facility] Last Admin: 01/04/17 07:32 Dose: 50 mg Sevelamer HCl (Renagel) 1,600 mg PO TID [facility] Last Admin: 01/04/17 10:00 Dose: Not Given Trazodone HCl (Desyrel) 50 mg PO [facility] Last Admin: 01/03/17 21:26 Dose: 50 mg - Labs Labs: 01/04/17 06:05 01/04/17 06:05 PT 12.6 SECONDS (9.4-12.5) H 01/03/17 00:08 INR 1.15 (0.93-1.08) H 01/03/17 00:08 APTT 21.7 Seconds (25.1-36.5) L 01/03/17 00:08 - Constitutional Appears: Non-toxic, No Acute Distress - Head Exam Head Exam: ATRAUMATIC, NORMAL INSPECTION, NORMOCEPHALIC - Eye Exam Eye Exam: EOMI, Normal appearance, PERRL Pupil Exam: NORMAL ACCOMODATION - ENT Exam ENT Exam: Mucous Membranes Moist - Neck Exam Neck Exam: Full ROM - Respiratory Exam Respiratory Exam: Clear to Ausculation Bilateral, NORMAL BREATHING PATTERN - Cardiovascular Exam Cardiovascular Exam: +S1, +S2 - GI/Abdominal Exam GI & Abdominal Exam: Soft, Normal Bowel Sounds - Extremities Exam Extremities Exam: Normal Capillary Refill. absent: Pedal Edema, Tenderness Additional comments: did not assess ROM at this time s/p cath - Back Exam Additional comments: did not assess ROM at this time s/p cath - Neurological Exam Neurological Exam: Alert, Awake, Oriented x3 - Psychiatric Exam Psychiatric exam: Normal Affect, Normal Mood - Skin Skin Exam: Dry, Intact, Normal Color, Warm Assessment and Plan (1) ESRD (end stage renal disease) on dialysis Assessment & Plan: Recommendations for Lasix 80mg IV BID after each transfusion Status: Chronic (2) Demand ischemia Assessment & Plan: It is thought that patient's elevated troponin was likely due to demand ischemia. Patient states that there was no recommendation for stent placement following cath today. Will await complete report. In the case that the report comes back with negative findings, it is likely that her symptoms were not due to ischemic cardiac disease Status: Acute (3) Anemia Assessment & Plan: Patient's Hemoglobin is stable at 10.6. Cont to monitor Hgb/Hct. Recommendations for transfusion if necessary. Suspicions for GI bleeding with the drop in Hgb earlier this month. Recommendations for GI consult F/U stool occult blood as well. Status: Chronic (4) Aortic stenosis Assessment & Plan: Patient is in need of a TAVR procedure. Patient is in need of removal of dialysis catheter before proceeding to decrease risk of infection associated with procedure. It is scheduled to be removed. Will follow up. Status: Chronic (5) CAD (coronary artery disease) Assessment & Plan: Mineral bone disease noted. Patient is on Sevelamer with meals. Status: Chronic (6) Hypertensive chronic kidney disease Assessment & Plan: Continue medications and dosing as recommended: Amlodipine, Metoprolol, Lasix Continue to monitor Status: Chronic - Assessment and Plan (Free Text) Assessment: Yusuf García, PGY 2 Discussed with attending. Management and planning per Dr. Gleason <Tom Gleason - Last Filed: 01/05/17 08:27> Objective - Vital Signs/Intake and Output Vital Signs (last 24 hours): Temp Pulse Resp BP Pulse Ox 98.5 F 66 20 109/49 L 96 01/05/17 06:00 01/05/17 06:00 01/05/17 06:00 01/05/17 06:00 01/05/17 06:00 Intake and Output: 01/05/17 01/05/17 06:59 18:59 Intake Total 120 Output Total 0 Balance 120 - Medications Medications: Current Medications Acetaminophen (Tylenol 325mg Tab) 650 mg PO Q6H PRN PRN Reason: Pain, moderate (4-7) Last Admin: 01/04/17 10:37 Dose: 650 mg Albuterol/Ipratropium (Duoneb 3 Mg/0.5 Mg (3 Ml) Ud) 3 ml IH Q2H PRN PRN Reason: Shortness of Breath Albuterol/Ipratropium (Duoneb 3 Mg/0.5 Mg (3 Ml) Ud) 3 ml IH [id number] [facility] Last Admin: 01/05/17 07:36 Dose: 3 ml Alprazolam (Xanax) 0.5 mg PO TID PRN; Protocol PRN Reason: Anxiety Last Admin: 01/04/17 21:30 Dose: 0.5 mg Amlodipine Besylate (Norvasc) 5 mg PO DAILY [facility] Last Admin: 01/04/17 10:37 Dose: 5 mg Aspirin (Aspirin Chewable) 81 mg PO DAILY [facility] Last Admin: 01/04/17 10:35 Dose: Not Given Atorvastatin Calcium (Lipitor) 10 mg PO DIN [facility] Last Admin: 01/04/17 19:06 Dose: 10 mg Clopidogrel Bisulfate (Plavix) 75 mg PO DAILY [facility] Last Admin: 01/04/17 13:36 Dose: Not Given Codeine Sulfate (Codeine) 30 mg PO Q8H PRN PRN Reason: Pain, moderate (4-7) Last Admin: 01/04/17 10:35 Dose: 30 mg Ferrous Sulfate (Feosol) 324 mg PO BID [facility] Insulin Detemir (Levemir) 15 unit SC HS [facility] Last Admin: 01/04/17 21:25 Dose: 15 unit Insulin Human Lispro (Humalog) 10 units SC ACTID [facility] Last Admin: 01/04/17 16:30 Dose: Not Given Insulin Human Regular (Humulin R Med) 0 units SC [facility] PRN Reason: Protocol Last Admin: 01/04/17 21:25 Dose: 3 units Metoprolol Tartrate (Lopressor) 50 mg PO BRKDIN [facility] Last Admin: 01/04/17 19:06 Dose: 50 mg Morphine Sulfate (Morphine) 1 mg IVP Q4H PRN PRN Reason: Pain, moderate (4-7) Last Admin: 01/04/17 14:00 Dose: 1 mg Sevelamer HCl (Renagel) 1,600 mg PO TID [facility] Last Admin: 01/04/17 19:07 Dose: 1,600 mg Torsemide (Demadex) 100 mg PO BID [facility] Trazodone HCl (Desyrel) 50 mg PO HS [facility] Last Admin: 01/04/17 21:27 Dose: 50 mg - Labs Labs: 01/05/17 06:00 01/05/17 06:00 PT 12.6 SECONDS (9.4-12.5) H 01/03/17 00:08 INR 1.15 (0.93-1.08) H 01/03/17 00:08 APTT 21.7 Seconds (25.1-36.5) L 01/03/17 00:08 Attending/Attestation - Attestation I have personally seen and examined this patient.: Yes I have fully participated in the care of the patient.: Yes I have reviewed all pertinent clinical information, including history, physical exam and plan: Yes Notes (Text): Patient seen and examined w/ resident, I agree with the note as above with the following edits: Patient has been under my ESRD care since 05/2016, admitted now for symptomatic anemia; Monthly Hgb drawn in our HD unit since past 6 months is as follows (labs drawn during first week of each month): 07/15 08/15 09/14 10/15 11/15 12/15 01/15 11.8 11.3 10.5 10.4 10.4 10.6 7.8 Patient has been maintained most recently on aranesp 40 mcg weekly with goal hgb of 10-11g; iron sat and ferritin have been low due to inability to give IV venofer (had allergic reaction); however, hgb was stable and current drop was abrupt; therefore, although no overt GI bleed noted, GI workup should be obtained (at least as outpatient); Rest of ESRD care relatively stable; Hypertensive CKD, BP controlled; will restart torsemide 100 mg bid (recently changed from lasix 160 mg bid due to decreased urine output and increased inter- dialytic weight gains); CKD Mineral Bone Disorder; PTH oversuppressed, avoiding calcium based binders/ supplementation; continue sevelamer 2 tabs w/ meals (ideally would like to get iron based binder but insurance not covering); CHF/Severe Aortic Stenosis; HD catheter will be removed next week as new AVF is completely functional now; can then proceed with TAVR procedure ( interventionalist didn't want to risk any infectious complications associated with HD catheter); CAD s/p stent; NSTEMI appears to be from demand ischemia as cath showing no major obstruction;
[2017-01-04] MEDS ORDERED: Morphine 5 MG/ML SYRINGE IVP PRN (13:49)
--- NOTE | 2017-01-04 20:03 | CARDCATH ---
PROCEDURE DATE: 01/04/2017 HISTORY: The patient is a 56-year-old woman who presents with a non-STEMI. The patient's past medical history includes documented diabetes mellitus, hypertension and hypercholesterolemia and is status post PTCA and stents with RCA and circumflex artery. In addition, the patient has documented aortic stenosis with pending plans for TAVR once her fistula for her end-stage renal disease is matured. Because of her non-STEMI and ongoing chest pain, a cardiac catheterization was recommended. PROCEDURE: Left heart catheterization with coronary aortography and left ventriculogram with supra-aortic valvular injection. I performed moderate sedation which included the presence of an independent trained observer that assisted in monitoring the patient's level of consciousness and physiologic status. After administration of Versed and fentanyl, my intraservice time was 15 minutes. The right femoral artery was cannulated with a 6-[place] sheath. There were no complications. The findings on catheterization revealed a significant gradient across the aortic valve noted on a previous procedure. Left ventriculogram was preserved with an ejection fraction of approximately 50%. Supra-aortic valvular injection revealed no aortic insufficiency. Her coronary anatomy revealed codominant circulation. The RCA revealed a patent stent in its midportion. The left main artery was unremarkable. The circumflex artery consisted of multiple obtuse marginal branches. There were intimal irregularities without critical lesions. The stent in the mid circumflex artery was patent. The LAD revealed diffuse atherosclerosis with intimal irregularities as well as 40% to 50% stenosis in the proximal portion. Manual compression was used to close the femoral artery site. The patient tolerated the procedure well. In summary, the procedure revealed; 1. Critical aortic stenosis. 2. No aortic insufficiency. 3. Patent stents in the RCA and circumflex artery. 4. Preserved LV function. Given these findings, the patient will be referred back in [facility] for TAVR of her critical aortic stenosis. William Chauhan MD
[2017-01-04] MEDS: Insulin Detemir 100 units/ml Vial (Levemir) SC SCH (21:25)
[2017-01-05 00:28] LABS: TOTAL PROTEIN, SERUM 5.5 g/dL (6.1-8.1)
[2017-01-05] MEDS: Albuterol-Ipratrop 3 mg / 0.5 (3 ml) UD IH SCH ×4 (01:22→20:30)
[2017-01-05 07:01] LABS: BASO # 0.02 K/mm3 (0.0-2.0); BASO % 0.2 % (0.0-3.0); EOS # 0.2 (0.0-0.7); EOS % 1.6 % (1.5-5.0); GRAN # 7.77 (1.4-6.5); GRAN % 73.1 % (50.0-68.0); HEMATOCRIT 29.1 % (36.0-48.0); LYMPH # 1.7 (1.2-3.4); LYMPH % 15.8 % (22.0-35.0); MEAN CELL VOLUME 91.2 fl (80.0-105.0); MEAN CORPUSCULAR HEMOGLOBIN 30.1 pg (25.0-35.0); MEAN PLATELET VOLUME 10.6 fl (7.0-11.0); MONO % 9.3 % (1.0-6.0); RED CELL DISTRIBUTION WIDTH 15.3 % (11.5-14.5); WHITE BLOOD COUNT 10.6 10^3/ul (4.5-11.0)
[2017-01-05 07:40] LABS: BILIRUBIN,TOTAL 0.6 mg/dL (0.2-1.3); CALCIUM 8.2 mg/dL (8.4-10.5); POTASSIUM 4.1 mmol/L (3.6-5.0); TOTAL PROTEIN 5.9 g/dL (5.8-8.3)
[2017-01-05] MEDS: Insulin Lispro 1 UNITS/0.01 ML SC SCH ×3 (08:50→17:16)
[2017-01-05] MEDS: Insulin Reg-MEDIUM-Coverage SC SCH ×4 (08:51→22:06)
[2017-01-05] MEDS ORDERED: Vancomycin 1gm in NS 250ml 250 ML IVPB SCH (09:00)
[2017-01-05] MEDS ORDERED: Vancomycin 1gm in NS 250ml 1 GM/250 ML BAG IVPB SCH (09:00)
--- NOTE | 2017-01-05 09:41 | PN ---
SUBJECTIVE: The patient was seen and examined at bedside on the telemetry [facility]. No acute events overnight. She remains afebrile and hemodynamically stable and chest pain free. She is status post cardiac catheterization with Dr. Chauhan, which demonstrated patent stents and this morning overall she states she feels well and her sole complaint is that of fatigue. OBJECTIVE: VITAL SIGNS: Temperature 98.5, pulse 66, blood pressure 109/49, respiratory rate 20, oxygen saturation 96% on 2 L nasal cannula. GENERAL: No apparent distress. HEENT: PERRL, EOMI. No scleral icterus. Mild conjunctival pallor is noted. NECK: No JVD. LUNGS: Clear to auscultation. CARDIOVASCULAR: Regular rate and rhythm. Normal S1 and S2. Grade IV/ EVERARDO to RUSB. ABDOMEN: Normoactive bowel sounds. Soft, nontender and nondistended. EXTREMITIES: Trace lower extremity edema bilaterally. NEUROLOGIC: Awake, alert and oriented x 3. No focal motor deficits. LABORATORY DATA: WBC 10.6 with 73% neutrophils, hemoglobin 9.6, hematocrit 29, platelets 255. Sodium 130, potassium 4.1, chloride 91, bicarb 30, BUN 28, creatinine 4.2, glucose 181. Blood cultures with gram-positive cocci. ASSESSMENT: The patient is a 56-year-old woman with multiple medical comorbidities including coronary artery disease, status post percutaneous coronary intervention with stent placement; chronic systolic heart failure; severe aortic stenosis; end-stage renal disease on hemodialysis; anemia of chronic disease and chronic obstructive pulmonary disease, who presented for evaluation of a several-day history of worsening malaise, fatigue and dyspnea and who was admitted to the telemetry [facility] for management of [id number] myocardial infarction and symptomatic anemia. PLAN: 1. Enk-IR-mtrzkvlkg GA. Input from Dr. Chauhan noted and appreciated. The patient is status post cardiac catheterization, which demonstrated patent stents. Continue with medical care consisting of aspirin 81 mg p.o. daily, Plavix 75 mg p.o. daily, Lipitor 40 mg p.o. daily. 2. Staph aureus bacteremia. Microbiology reports from yesterday demonstrated the presence of Staph aureus and coag-negative staph in patient's blood cultures. Certainly, there is concern for a line sepsis as the patient has a hemodialysis access catheter and this may need to be removed. We will consult Dr. Huang of Infectious Disease for antimicrobial recommendations. 3. Anemia of chronic disease secondary to underlying CKD. Input from Dr. Rubi noted and appreciated and anemia workup is ongoing. Continue to monitor CBC daily. 4. Chronic systolic heart failure. Continue care as per number #1. 5. End-stage renal disease on hemodialysis. Input from Dr. Gleason noted and appreciated. Continue with care as per Dr. Gleason. 6. Hypertension. Blood pressure controlled. Continue Norvasc 5 mg p.o. daily. 7. CAD, status post PCI with stent placement. Continue with aspirin 81 mg p.o. daily, Plavix 75 mg p.o. daily and Lipitor 40 mg p.o. daily. 8. COPD. Continue with supplemental oxygen and bronchodilators as needed. 9. Insulin-dependent diabetes mellitus. Fingersticks remain elevated albeit improving. Continue Levemir 15 units subcutaneous at bedtime and Humalog 10 units subcutaneous t.i.d. with meals. Continue medium-dose insulin sliding scale for coverage. We will monitor fingersticks and adjust insulin as needed. 10. Severe aortic stenosis. Arrangements will be made to pursue TAVR upon maturation of patient's AV fistula. 11. Hyperlipidemia. Continue Lipitor 40 mg p.o. daily. 12. Prophylaxis: GI prophylaxis is not indicated as patient is eating. 13. DVT prophylaxis is not indicated as patient is ambulatory. CODE STATUS: Full code. Ole Cardona MD [facility] MEDICAL CENTERDavid
[2017-01-05] MEDS ORDERED: Morphine 2 mg/ml ISec IVP PRN (11:17)
--- NOTE | 2017-01-05 11:26 | CP.PCM.CON ---
History of Present Illness - History of Present Illness History of Present Illness: 56 year old female with PMH of CAD S/P PCI and stents placed, DM, chronic renal failure now on chronic dialysis for 7 months now, HTN, chronic CHF was initially brought in to [facility] complaining of shortness of breath. She is found to have congestive heart failure exacerbation and is being treated for this. On initial work up in the ED, blood cultures were taken which are now showing 4 out of 4 bottles with coagulase negative staph. She denies fever or chills, no pain along the permacath site on the right anterior chest wall, no SOB currently, no abdominal pain, no nausea or vomiting, no chest pain , no headache or dizziness, no diarrhea, no dysuria, no arm pain. Infectious Diseases consult is requested to further evaluate and manage. Review of Systems - Review of Systems All systems: reviewed and no additional remarkable complaints except (as per HPI ) Past Patient History - Infectious Disease Hx of Infectious Diseases: None - Tetanus Immunizations Tetanus Immunization: Unknown - Past Social History Smoking Status: Former Smoker - CARDIAC Hx Hypertension: Yes Hx Pacemaker: No - PULMONARY Hx Respiratory Disorders: No - NEUROLOGICAL Hx Paralysis: No - HEENT Hx HEENT Problems: No - RENAL Hx Chronic Kidney Disease: Yes (Stage IV) Date of Last Dialysis Treatment: 01/02/17 - ENDOCRINE/METABOLIC Hx Endocrine Disorders: Yes Hx Diabetes Mellitus Type 1: Yes - HEMATOLOGICAL/ONCOLOGICAL Hx Blood Transfusion Reaction: No (SEVERE REACTION TO IRON INFUSION) - INTEGUMENTARY Hx Dermatological Problems: Yes (BILATERAL LEG EDEMA + 2,DEPENDENT EDEMA MAINLY TO ABOVE KNEE AREA.TATTOOS.) - MUSCULOSKELETAL/RHEUMATOLOGICAL Hx Musculoskeletal Disorders: No - GASTROINTESTINAL Hx Gastrointestinal Disorders: No - GENITOURINARY/GYNECOLOGICAL Hx Genitourinary Disorders: No (REMOVAL OF PRECANCEROUS CELLS/ UTERUS) - PSYCHIATRIC Hx Emotional Abuse: No Hx Physical Abuse: No Hx Substance Use: No - SURGICAL HISTORY Hx Cardiac Catheterization: Yes (04/2015) Hx Coronary Stent: Yes (CX/RCA) - ANESTHESIA Hx Anesthesia: Yes Hx Anesthesia Reactions: No Hx Malignant Hyperthermia: No Meds Allergies/Adverse Reactions: Allergies Allergy/AdvReac Type Severity Reaction Status Date / Time iron sucrose complex Allergy Severe ITCHING,SWE Verified 01/02/17 23:25 [From Venofer] LLING - Medications Medications: Current Medications Acetaminophen (Tylenol 325mg Tab) 650 mg PO Q6H PRN PRN Reason: Pain, moderate (4-7) Last Admin: 01/04/17 10:37 Dose: 650 mg Albuterol/Ipratropium (Duoneb 3 Mg/0.5 Mg (3 Ml) Ud) 3 ml IH Q2H PRN PRN Reason: Shortness of Breath Albuterol/Ipratropium (Duoneb 3 Mg/0.5 Mg (3 Ml) Ud) 3 ml IH [id number] [facility] Last Admin: 01/05/17 07:36 Dose: 3 ml Alprazolam (Xanax) 0.5 mg PO TID PRN; Protocol PRN Reason: Anxiety Last Admin: 01/04/17 21:30 Dose: 0.5 mg Amlodipine Besylate (Norvasc) 5 mg PO DAILY [facility] Last Admin: 01/04/17 10:37 Dose: 5 mg Aspirin (Aspirin Chewable) 81 mg PO DAILY [facility] Last Admin: 01/04/17 10:35 Dose: Not Given Atorvastatin Calcium (Lipitor) 10 mg PO DIN [facility] Last Admin: 01/04/17 19:06 Dose: 10 mg Clopidogrel Bisulfate (Plavix) 75 mg PO DAILY [facility] Last Admin: 01/04/17 13:36 Dose: Not Given Codeine Sulfate (Codeine) 30 mg PO Q8H PRN PRN Reason: Pain, moderate (4-7) Last Admin: 01/04/17 10:35 Dose: 30 mg Ferrous Sulfate (Feosol) 324 mg PO BID [facility] Vancomycin HCl (Vancomycin 1gm) 250 mls @ 167 mls/hr IVPB Q12H [facility] PRN Reason: Protocol Insulin Detemir (Levemir) 15 unit SC HS [facility] Last Admin: 01/04/17 21:25 Dose: 15 unit Insulin Human Lispro (Humalog) 10 units SC ACTID [facility] Last Admin: 01/05/17 08:50 Dose: 10 units Insulin Human Regular (Humulin R Med) 0 units SC ACHS [facility] PRN Reason: Protocol Last Admin: 01/05/17 08:51 Dose: 1 units Metoprolol Tartrate (Lopressor) 50 mg PO BRKDIN [facility] Last Admin: 01/04/17 19:06 Dose: 50 mg Morphine Sulfate (Morphine) 1 mg IVP Q4H PRN PRN Reason: Pain, moderate (4-7) Last Admin: 01/04/17 14:00 Dose: 1 mg Sevelamer HCl (Renagel) 1,600 mg PO TID JOHN Last Admin: 01/04/17 19:07 Dose: 1,600 mg Torsemide (Demadex) 100 mg PO BID JOHN Trazodone HCl (Desyrel) 50 mg PO HS JOHN Last Admin: 01/04/17 21:27 Dose: 50 mg Physical Exam - Constitutional Appears: Non-toxic, No Acute Distress - Head Exam Head Exam: NORMAL INSPECTION - ENT Exam ENT Exam: Mucous Membranes Moist - Neck Exam Neck exam: Negative for: Lymphadenopathy, Meningismus - Respiratory Exam Respiratory Exam: Decreased Breath Sounds. absent: Rales Additional comments: right anterior chest wall permacath in place, non-tender site, intact, no discharge, no erythema - Cardiovascular Exam Cardiovascular Exam: +S1, +S2 - GI/Abdominal Exam GI & Abdominal Exam: Soft. absent: Tenderness Results - Vital Signs Recent Vital Signs: Last Vital Signs Temp 98.5 F 01/05/17 06:00 Pulse 66 01/05/17 06:00 Resp 20 01/05/17 06:00 BP 109/49 L 01/05/17 06:00 Pulse Ox 96 01/05/17 06:00 - Labs Result Diagrams: 01/05/17 06:00 01/05/17 06:00 Labs: Laboratory Results - last 24 hr 01/04/17 01/04/17 01/04/17 06:05 06:05 11:52 WBC RBC Hgb Hct MCV MCH MCHC RDW Plt Count MPV Gran % Lymph % (Auto) [place]er % (Auto) Eos % (Auto) Baso % (Auto) Gran # Lymph # [place]agoner # Eos # Baso # Sodium Potassium Chloride Carbon Dioxide Anion Gap BUN Creatinine Est GFR ( Amer) Est GFR (Non-Af Amer) POC Glucose (mg/dL) 222 H Random Glucose Calcium Ferritin 126.0 Total Bilirubin AST ALT Alkaline Phosphatase Total Protein Total Protein (PEP) 5.5 L Albumin Globulin Albumin/Globulin Ratio Vitamin B12 795 Folate 5.8 01/04/17 01/04/17 01/05/17 18:40 21:20 02:24 WBC RBC Hgb Hct MCV MCH MCHC RDW Plt Count MPV Gran % Lymph % (Auto) [place]er % (Auto) Eos % (Auto) Baso % (Auto) Gran # Lymph # [place]agoner # Eos # Baso # Sodium Potassium Chloride Carbon Dioxide Anion Gap BUN Creatinine Est GFR ( Amer) Est GFR (Non-Af Amer) POC Glucose (mg/dL) 128 H 368 H 289 H Random Glucose Calcium Ferritin Total Bilirubin AST ALT Alkaline Phosphatase Total Protein Total Protein (PEP) Albumin Globulin Albumin/Globulin Ratio Vitamin B12 Folate 01/05/17 01/05/17 06:00 06:00 WBC 10.6 RBC 3.19 L Hgb 9.6 L Hct 29.1 L MCV 91.2 MCH 30.1 MCHC 33.0 RDW 15.3 H Plt Count 255 MPV 10.6 Gran % 73.1 H Lymph % (Auto) 15.8 L Wagoner % (Auto) 9.3 H Eos % (Auto) 1.6 Baso % (Auto) 0.2 Gran # 7.77 H Lymph # 1.7 Wagoner # 1.0 H Eos # 0.2 Baso # 0.02 Sodium 130 L Potassium 4.1 Chloride 91 L Carbon Dioxide 30 Anion Gap 13 BUN 28 H Creatinine 4.2 H Est GFR ( Amer) 13 Est GFR (Non-Af Amer) 11 POC Glucose (mg/dL) Random Glucose 181 H Calcium 8.2 L Ferritin Total Bilirubin 0.6 AST 21 ALT 21 Alkaline Phosphatase 81 Total Protein 5.9 Total Protein (PEP) Albumin 3.0 Globulin 2.9 Albumin/Globulin Ratio 1.0 L Vitamin B12 Folate Assessment & Plan - Assessment and Plan (Free Text) Plan: Assessment Probable sepsis (fever, tachycardia) due to coagulase negative staph bacteremia , R/O due to Permacath CAD S/P PCI and stents placed DM chronic renal failure now on chronic dialysis for 7 months now HTN chronic CHF Plan Will repeat blood cx; will start IV Vancomycin 15 mg/kg every dialysis session and give a 1 gm today follow up 2D echo results done yesterday will get ultrasound of permacath area to rule out DVT will monitor clinically
--- NOTE | 2017-01-05 11:27 | CARD ---
APPROVED REPORT EXAM: Two-dimensional and M-mode echocardiogram with Doppler and color Doppler. INDICATION Dyspnea Non STEMI 2D DIMENSIONS Left Atrium (2D)5.1 (1.6-4.0cm)IVSd1.4 (0.7-1.1cm) LVDd4.6 (3.9-5.9cm)LVOT Diameter1.9 (1.8-2.4cm) PWd1.6 (0.7-1.1cm)FS (%) 29.3 % LVEF (%)56.0 (>50%) M-Mode DIMENSIONS Aortic Root2.90 (2.2-3.7cm)Aortic Cusp Exc.0.80 (1.5-2.0cm) Aortic Valve AoV Peak Gwceuaxw806.0cm/sAoV AKV325.0cmAO Peak GR.111mmHg LVOT Peak Uajeyzma75.9cm/sLVOT VTI23.60cmAO Mean GR.59mmHg CAMERON (VMAX)0.58yx0IWJ (VTI)0.35fk3DA P 1/2 Zcyt167bk Mitral Valve MV E Aofilzpr574.0cm/sMV A Bqgqlnbl343.0cm/sE/A ratio0.8 TDI Lateral E' Peak V4.29cm/sMedial E' Peak V4.48cm/sE/Lateral E'23.8 E/Medial E'22.8 Pulmonary Valve PV Peak Ndeetcle763.0cm/sPV Peak Grad.7mmHg Tricuspid Valve TR Peak Dpehtzxt990wa/sRAP [id number] Peak Gr.34mmHg [id number] LEFT VENTRICLE The left ventricle is normal size. There is mild to moderate concentric left ventricular hypertrophy. The left ventricular function is normal.EF-55% There is normal LV segmental wall motion. Transmitral Doppler flow pattern is Grade III-reversible restrictive diastolic dysfunction. No left ventricle thrombus noted on this study. There is no ventricular septal defect visualized. There is no left ventricular aneurysm. There is no mass noted in the left ventricle. RIGHT VENTRICLE The right ventricle is normal size. There is normal right ventricular wall thickness. The right ventricular systolic function is normal. ATRIA The left atrium is mildly dilated. The right atrium size is normal. The interatrial septum is intact with no evidence for an atrial septal defect. AORTIC VALVE The aortic valve is calcified and displays decreased opening. There is mild to moderate aortic regurgitation. There is severe valvular aortic stenosis.Peakgradient 111 mm of Hg. across AoV. There is no aortic valvular vegetation. MITRAL VALVE The mitral valve is thickened but opens well. Mitral annular calcification is moderate to severe. Mitral regurgitation is mild. There is no mitral valve stenosis. There is no evidence of mitral valve prolapse. TRICUSPID VALVE The tricuspid valve leaflets are thickened , but open well. There is mild tricuspid regurgitation.RVSP_44 mmof hg. There is no tricuspid valve stenosis. There is no tricuspid valve prolapse or vegetation. PULMONIC VALVE The pulmonic valve is mildly thickened. There is trace pulmonic valvular regurgitation. There is no pulmonic valvular stenosis. GREAT VESSELS The aortic root is normal in size. The ascending aorta is normal in size. The pulmonary artery is normal. The IVC is normal in size and collapses >50% with inspiration. PERICARDIAL EFFUSION There is no pleural effusion. There is a trace to small pericardial effusion. <Conclusion> The left ventricle is normal size. There is mild to moderate concentric left ventricular hypertrophy. The left ventricular function is normal.EF-55% There is mild to moderate aortic regurgitation. There is severe valvular aortic stenosis.Peakgradient 111 mm of Hg. across AoV. Mitral regurgitation is mild. There is mild tricuspid regurgitation.RVSP_44 mmof hg. The IVC is normal in size and collapses >50% with inspiration. There is a trace to small pericardial effusion. No vegetation noted.
--- NOTE | 2017-01-05 12:48 | PN ---
CARDIOLOGY FOLLOWUP DATE: 01/05/2017 SUBJECTIVE: The patient is without chest pain, without shortness of breath. PHYSICAL EXAMINATION: VITAL SIGNS: Blood pressure is 109/50, heart rate in the 60s. The patient is afebrile. NECK: Negative JVD. LUNGS: Without rales. HEART: Reveals S1 and S2. EXTREMITIES: Without edema. LABORATORY DATA: Hemoglobin is 9.6. Chemistries; BUN and creatinine are 28 and 4.2. IMPRESSION: 1. Patent stents documented by cardiac catheterization. 2. Critical aortic stenosis. 3. End-stage renal disease. 4. Chronic obstructive pulmonary disease. 5. Diabetes mellitus. Given these findings, the patient needs to have her port removed now that her dialysis shunt is being used. Once it is removed, the patient could then undergo TAVR at [facility]. William Chauhan MD
--- NOTE | 2017-01-05 14:18 | CP.PCM.PN ---
<Toney García - Last Filed: 01/05/17 14:07> Subjective - Date & Time of Evaluation Date of Evaluation: 01/05/17 Time of Evaluation: 11:02 - Subjective Subjective: PGY 2 Nephrology Note- Dr. Gleason's service Pt seen and examined in no acute distress. Patient is aware of issues with cath site. Patient denies having bowel movements. She denies subjective fevers or chills, chest pain, paresthesias, hematochezia, palpitations, headaches, nausea , vomiting or swelling at this time. Objective - Vital Signs/Intake and Output Vital Signs (last 24 hours): Temp Pulse Resp BP Pulse Ox 98.7 F 74 19 101/54 L 96 01/05/17 12:00 01/05/17 12:00 01/05/17 12:00 01/05/17 12:00 01/05/17 06:00 Intake and Output: 01/05/17 01/05/17 06:59 18:59 Intake Total 120 Output Total 0 Balance 120 - Medications Medications: Current Medications Acetaminophen (Tylenol 325mg Tab) 650 mg PO Q6H PRN PRN Reason: Pain, moderate (4-7) Last Admin: 01/05/17 09:35 Dose: 650 mg Albuterol/Ipratropium (Duoneb 3 Mg/0.5 Mg (3 Ml) Ud) 3 ml IH Q2H PRN PRN Reason: Shortness of Breath Albuterol/Ipratropium (Duoneb 3 Mg/0.5 Mg (3 Ml) Ud) 3 ml IH [id number] [facility] Last Admin: 01/05/17 13:30 Dose: 3 ml Alprazolam (Xanax) 0.5 mg PO TID PRN; Protocol PRN Reason: Anxiety Last Admin: 01/05/17 09:35 Dose: 0.5 mg Amlodipine Besylate (Norvasc) 5 mg PO DAILY [facility] Last Admin: 01/05/17 09:29 Dose: 5 mg Aspirin (Aspirin Chewable) 81 mg PO DAILY [facility] Last Admin: 01/05/17 09:28 Dose: 81 mg Atorvastatin Calcium (Lipitor) 10 mg PO DIN [facility] Last Admin: 01/04/17 19:06 Dose: 10 mg Clopidogrel Bisulfate (Plavix) 75 mg PO DAILY [facility] Last Admin: 01/05/17 09:29 Dose: 75 mg Codeine Sulfate (Codeine) 30 mg PO Q8H PRN PRN Reason: Pain, moderate (4-7) Last Admin: 01/05/17 09:35 Dose: 30 mg Ferrous Sulfate (Feosol) 324 mg PO BID [facility] Last Admin: 01/05/17 09:28 Dose: 324 mg Vancomycin HCl (Vancomycin 1gm) 1 gm in 250 mls @ 167 mls/hr IVPB MWF [facility] PRN Reason: Protocol Insulin Detemir (Levemir) 15 unit SC HS [facility] Last Admin: 01/04/17 21:25 Dose: 15 unit Insulin Human Lispro (Humalog) 10 units SC ACTID [facility] Last Admin: 01/05/17 12:30 Dose: 10 units Insulin Human Regular (Humulin R Med) 0 units SC ACHS [facility] PRN Reason: Protocol Last Admin: 01/05/17 12:20 Dose: 3 units Metoprolol Tartrate (Lopressor) 50 mg PO BRKDIN [facility] Last Admin: 01/05/17 12:20 Dose: 50 mg Morphine Sulfate (Morphine) 1 mg IVP Q4H PRN PRN Reason: Pain, moderate (4-7) Sevelamer HCl (Renagel) 1,600 mg PO TID [facility] Last Admin: 01/05/17 09:28 Dose: 1,600 mg Torsemide (Demadex) 100 mg PO BID [facility] Last Admin: 01/05/17 09:28 Dose: 100 mg Trazodone HCl (Desyrel) 50 mg PO [facility] Last Admin: 01/04/17 21:27 Dose: 50 mg - Labs Labs: 01/05/17 06:00 01/05/17 06:00 PT 12.6 SECONDS (9.4-12.5) H 01/03/17 00:08 INR 1.15 (0.93-1.08) H 01/03/17 00:08 APTT 21.7 Seconds (25.1-36.5) L 01/03/17 00:08 - Constitutional Appears: Non-toxic, No Acute Distress - Head Exam Head Exam: ATRAUMATIC, NORMAL INSPECTION, NORMOCEPHALIC - Eye Exam Eye Exam: EOMI, PERRL Pupil Exam: NORMAL ACCOMODATION Additional comments: conjunctival pallor - ENT Exam ENT Exam: Mucous Membranes Moist - Neck Exam Neck Exam: Full ROM - Cardiovascular Exam Cardiovascular Exam: +S1, +S2, Murmur. absent: JVD Additional comments: bruit noted - GI/Abdominal Exam GI & Abdominal Exam: Soft, Normal Bowel Sounds - Extremities Exam Extremities Exam: Full ROM, Normal Capillary Refill. absent: Pedal Edema, Tenderness - Back Exam Back Exam: Full ROM - Neurological Exam Neurological Exam: Alert, Awake, Oriented x3 - Psychiatric Exam Psychiatric exam: Normal Affect, Normal Mood - Skin Skin Exam: Dry, Normal Color, Warm Assessment and Plan (1) ESRD (end stage renal disease) on dialysis Status: Chronic (2) Demand ischemia Status: Acute (3) Anemia Status: Chronic (4) Aortic stenosis Status: Chronic (5) CAD (coronary artery disease) Status: Chronic (6) Hypertensive chronic kidney disease Status: Chronic - Assessment and Plan (Free Text) Assessment: ESRD (end stage renal disease) on dialysis Assessment & Plan: Recommendations for Lasix 80mg IV BID after each transfusion Status: Chronic Positive Blood Cultures Assessment & Plan: Positive cultures No signs of fevers No present Leukocytosis Recommendations for removal of dialysis catheter instead if waiting until next week due to positive cultures. F/U US of permacath area to rule out DVT On Vancomycin- This will need to be renally dosed. F/U troughs Status: Acute Demand ischemia Assessment & Plan: It is thought that patient's elevated troponin was likely due to demand ischemia. Patient states that there was no recommendation for stent placement following cath today. Will await complete report. In the case that the report comes back with negative findings, it is likely that her symptoms were not due to ischemic cardiac disease Status: Acute Anemia Assessment & Plan: Patient's Hemoglobin is 9.6. Cont to monitor Hgb/Hct. Recommendations for transfusion if necessary. Suspicions for GI bleeding with the drop in Hgb earlier this month. Recommendations for GI consult F/U stool occult blood as well. Status: Chronic Aortic stenosis Assessment & Plan: Patient is in need of a TAVR procedure. Patient is in need of removal of dialysis catheter before proceeding to decrease risk of infection associated with procedure. It is scheduled to be removed. Will follow up. Status: Chronic CAD (coronary artery disease) Assessment & Plan: Mineral bone disease noted. Patient is on Sevelamer with meals. Status: Chronic Hypertensive chronic kidney disease Assessment & Plan: Continue medications and dosing as recommended: Amlodipine, Metoprolol, Lasix . Started Torsemide Continue to monitor Status: Chronic Discussed with attending Dr. Rosibel García, PGY 2 <Tom Gleason - Last Filed: 01/06/17 08:16> Objective - Vital Signs/Intake and Output Vital Signs (last 24 hours): Temp Pulse Resp BP Pulse Ox 98.9 F 82 19 137/59 L 92 L 01/06/17 06:00 01/06/17 06:00 01/06/17 06:00 01/06/17 06:00 01/06/17 06:00 Intake and Output: 01/06/17 01/06/17 06:59 18:59 Intake Total 360 Balance 360 - Medications Medications: Current Medications Acetaminophen (Tylenol 325mg Tab) 650 mg PO Q6H PRN PRN Reason: Pain, moderate (4-7) Last Admin: 01/06/17 03:00 Dose: 650 mg Albuterol/Ipratropium (Duoneb 3 Mg/0.5 Mg (3 Ml) Ud) 3 ml IH Q2H PRN PRN Reason: Shortness of Breath Albuterol/Ipratropium (Duoneb 3 Mg/0.5 Mg (3 Ml) Ud) 3 ml IH [id number] [facility] Last Admin: 01/06/17 02:45 Dose: Not Given Alprazolam (Xanax) 0.5 mg PO TID PRN; Protocol PRN Reason: Anxiety Last Admin: 01/05/17 17:26 Dose: 0.5 mg Amlodipine Besylate (Norvasc) 5 mg PO DAILY [facility] Last Admin: 01/05/17 09:29 Dose: 5 mg Aspirin (Aspirin Chewable) 81 mg PO DAILY [facility] Last Admin: 01/05/17 09:28 Dose: 81 mg Atorvastatin Calcium (Lipitor) 10 mg PO DIN [facility] Last Admin: 01/05/17 17:22 Dose: 10 mg Clopidogrel Bisulfate (Plavix) 75 mg PO DAILY [facility] Last Admin: 01/05/17 09:29 Dose: 75 mg Codeine Sulfate (Codeine) 30 mg PO Q8H PRN PRN Reason: Pain, moderate (4-7) Last Admin: 01/06/17 03:00 Dose: 30 mg Ferrous Sulfate (Feosol) 324 mg PO BID [facility] Last Admin: 01/06/17 00:51 Dose: Not Given Vancomycin HCl (Vancomycin 1gm) 1 gm in 250 mls @ 167 mls/hr IVPB MWF [facility] PRN Reason: Protocol Insulin Detemir (Levemir) 15 unit SC HS [facility] Last Admin: 01/05/17 22:03 Dose: 15 unit Insulin Human Lispro (Humalog) 10 units SC ACTID [facility] Last Admin: 01/05/17 17:16 Dose: 10 units Insulin Human Regular (Humulin R Med) 0 units SC ACHS [facility] PRN Reason: Protocol Last Admin: 01/05/17 22:06 Dose: Not Given Metoprolol Tartrate (Lopressor) 50 mg PO BRKDIN [facility] Last Admin: 01/05/17 17:25 Dose: 50 mg Morphine Sulfate (Morphine) 1 mg IVP Q4H PRN PRN Reason: Pain, moderate (4-7) Sevelamer HCl (Renagel) 1,600 mg PO TID [facility] Last Admin: 01/05/17 17:27 Dose: 1,600 mg Torsemide (Demadex) 100 mg PO BID [facility] Last Admin: 01/05/17 17:22 Dose: 100 mg Trazodone HCl (Desyrel) 50 mg PO [facility] Last Admin: 01/05/17 22:02 Dose: 50 mg - Labs Labs: 01/06/17 06:00 01/06/17 06:00 PT 12.6 SECONDS (9.4-12.5) H 01/03/17 00:08 INR 1.15 (0.93-1.08) H 01/03/17 00:08 APTT 21.7 Seconds (25.1-36.5) L 01/03/17 00:08 Attending/Attestation - Attestation I have personally seen and examined this patient.: Yes I have fully participated in the care of the patient.: Yes I have reviewed all pertinent clinical information, including history, physical exam and plan: Yes Notes (Text): Patient seen and examined with resident; I agree with the note as above with the following edits: 56 yo F w/ htn, dm, severe , CHF, and ESRD on HD, admitted with sympomatic anemia; Blood culture obtained on admission due to temp 100.4 growing gram pos cocci in clusters, started on vanco, dosed for HD; concern about HD catheter infection; catheter was slated to be taken out next week as her AVF is being used now; however, lately AVF has been difficult to cannulate at times with infiltration/ hematoma occurring several times and we had to use her HD catheter on last HD; will obtain fistulogram to look for possible stenosis; for now we will keep HD catheter and continue to treat with IV antibiotics; Symptomatic anemia, now s/p prbc transfusion, slight drop in hgb today; GI is seeing patient, we will f/u; will give aranesp 100 mcg tomorrrow (unfortunately patient had allergic reaction to IV venofer and so we cannot iron load her with the iron formulation that we have available); Otherwise BP controlled, continue current meds including torsemide 100 mg bid; phos acceptable, continue sevelamer 2 tabs w/ meals;
[2017-01-05] MEDS ORDERED: Barium Sulfate Susp 2.1% w/v, 2.0% w/w 450 mL Bottle PO ONE (14:37)
--- NOTE | 2017-01-05 17:04 | CON ---
DATE: 01/05/2017 GASTROENTEROLOGY CONSULTATION REQUESTING PHYSICIAN: Ole Cardona MD REASON FOR CONSULTATION: I have been asked to see this 56-year-old female with known critical aortic stenosis, end-stage renal disease, coronary artery disease, chronic systolic heart failure, who was admitted to the hospital with worsening substernal chest pain, generalized weakness and malaise. The patient also admitted to becoming easily fatigued with minimal exertion, this all associated with severe dyspnea with minimal exertion. Routine blood work reveals the patient to be profoundly anemic with a hemoglobin of 6.8. Her baseline hemoglobin was in the 9 to 10 gram range. She denies any rectal bleeding, melena, nausea, vomiting, hematemesis or abdominal pain. She is on aspirin and Plavix at home for coronary artery disease. PAST MEDICAL HISTORY: As above. Again, she has a history of critical aortic stenosis; chronic systolic heart failure; coronary artery disease, status post stent placement; end-stage renal disease, on hemodialysis; diabetes mellitus; hypertension; hyperlipidemia. SOCIAL HISTORY: The patient smoked between 1 to 2 packs a day of cigarettes for many years and quit over a year ago. She denies alcohol use. FAMILY HISTORY: Noncontributory. REVIEW OF SYSTEMS: A 14-point review of systems is notable for substernal chest pain, generalized weakness, dyspnea with minimal exertion and increased fatigue. PHYSICAL EXAMINATION: GENERAL: Well-developed female, lying in bed, in no acute distress. VITAL SIGNS: Reveal temperature of 98.7, blood pressure 101/54, heart rate 74. HEENT: Reveal sclerae to be white. Conjunctivae pink. NECK: Supple. CHEST: Reveal scattered rales at the bases. HEART: Reveals a 3/6 systolic murmur. ABDOMEN: Soft, nontender. EXTREMITIES: Show no edema. LABORATORY DATA: Reveal white blood cell count 10.6; hemoglobin 9.6 after blood transfusion, the patient received 2 units. Chemistries reveal BUN 28, creatinine 4.2. AST, ALT, alk phos were all normal. The patient had blood cultures on 01/02, which reveal staph aureus and coag-negative staph in her blood cultures. IMPRESSION: A 56-year-old female with critical aortic stenosis with profound anemia, end-stage renal disease, diabetes mellitus, systolic congestive heart failure and now with staph sepsis. I suspect that the patient has chronic GI blood loss possibly from GI angiodysplasia given her critical aortic stenosis. There is no evidence of overt GI bleeding at this time. RECOMMENDATIONS: 1. We will obtain a CT scan of the abdomen and pelvis to rule out any lesions throughout the GI tract and might cause bleeding. 2. Continue IV antibiotics. 3. We will defer endoscopy and colonoscopy until her staph sepsis has been treated. Hima Gonzales MD
--- NOTE | 2017-01-05 18:25 | US ---
PROCEDURE: Right upper extremity venous US CLINICAL HISTORY: Arm pain and swelling Evaluate for deep venous thrombosis. PHYSICIAN(S): William Hendricks M.D FINDINGS: The visualized rightinternal jugular vein is sonographically normal and compressible. No evidence of obstruction or thrombus is seen. The visualized segments of the right subclavian vein are patent with normal waveforms. No sonographic evidence of obstruction or thrombosis is seen. The visualized deep venous system of the proximal right upper extremity is sonographically normal and compressible. IMPRESSION: 1. No sonographic evidence for deep venous thrombosis in the visualized segments of the right upper extremity.
--- NOTE | 2017-01-05 21:05 | CT ---
EXAM: CT Abdomen and Pelvis Without Intravenous Contrast CLINICAL HISTORY: 56 years old, female; Pain; Abdominal pain; Acute; Additional info: Anemia TECHNIQUE: Axial computed tomography images of the abdomen and pelvis without intravenous contrast. All CT scans at this facility use one or more dose reduction techniques, viz.: automated exposure control; ma/kV adjustment per patient size (including targeted exams where dose is matched to indication; i.e. head); or iterative reconstruction technique. MIP reconstructed images were created and reviewed. Coronal and sagittal reformatted images were created and reviewed. COMPARISON: CT - ABD PELVIS PO CONTRAST ONLY 2015-04-23 08:41 FINDINGS: Limitations: Lack of intravenous contrast. Lower thorax: Small pericardial effusion. Coronary artery/valvular calcifications. Small bilateral pleural effusions. Consolidation with air bronchograms within posterior lower lobes. Few calcified granulomas. ABDOMEN: Liver: Unremarkable. Gallbladder and bile ducts: Contracted gallbladder. Mild gallbladder wall thickening and/or fluid. No calcified gallstones. No ductal dilation. Pancreas: Unremarkable. No ductal dilation. Spleen: No splenomegaly. Adrenals: No mass. Kidneys and ureters: Vascular calcifications. Residual contrast within renal collecting system. No hydronephrosis. Stomach and bowel: No definite mural thickening. No obstruction. Appendix: Normal caliber. No inflammation. PELVIS: Bladder: Contrast within bladder lumen. Reproductive: Unremarkable as visualized. ABDOMEN and PELVIS: Intraperitoneal space: Trace free fluid within pelvis. No free air. Bones/joints: Facet osteoarthrosis within lumbar spine. Soft tissues: Mild to moderate stranding within subcutaneous tissues. Probable sebaceous cyst within LEFT gluteal region. Vasculature: Moderate atherosclerotic disease. No aneurysm. Lymph nodes: No pathologically enlarged lymph nodes. IMPRESSION: 1. Bilateral pleural effusions with bibasilar atelectasis and/or pneumonia. 2. Gallbladder wall thickening and/or fluid. Consider ultrasound. 3. Trace pelvic ascites. 4. Incidental/non-acute findings are described above.
[2017-01-05] MEDS: Insulin Detemir 100 units/ml Vial (Levemir) SC SCH (22:03)
[2017-01-06] MEDS: Albuterol-Ipratrop 3 mg / 0.5 (3 ml) UD IH SCH ×4 (02:45→20:40)
[2017-01-06 04:56] LABS: BETA 1 GLOBULIN 0.4 g/dL (0.4-0.6); BETA 2 GLOBULIN 0.4 g/dL (0.2-0.5); GAMMA GLOBULIN 0.7 g/dL (0.8-1.7)
[2017-01-06 07:08] LABS: BASO # 0.03 K/mm3 (0.0-2.0); BASO % 0.4 % (0.0-3.0); EOS # 0.2 (0.0-0.7); EOS % 2.2 % (1.5-5.0); GRAN # 6.53 (1.4-6.5); GRAN % 78.3 % (50.0-68.0); HEMATOCRIT 25.9 % (36.0-48.0); LYMPH % 12.1 % (22.0-35.0); MEAN CELL VOLUME 89.6 fl (80.0-105.0); MEAN CORPUSCULAR HEMOGLOBIN 30.1 pg (25.0-35.0); MEAN CORPUSCULAR HGB CONC 33.6 g/dl (31.0-37.0); MEAN PLATELET VOLUME 10.3 fl (7.0-11.0); MONO # 0.6 (0.1-0.6); RED CELL DISTRIBUTION WIDTH 14.6 % (11.5-14.5); WHITE BLOOD COUNT 8.3 10^3/ul (4.5-11.0)
[2017-01-06 07:16] LABS: BILIRUBIN,TOTAL 0.6 mg/dL (0.2-1.3); CALCIUM 8.1 mg/dL (8.4-10.5); POTASSIUM 3.5 mmol/L (3.6-5.0); TOTAL PROTEIN 5.7 g/dL (5.8-8.3)
[2017-01-06] MEDS: Insulin Reg-MEDIUM-Coverage SC SCH ×3 (07:52→18:26)
[2017-01-06] MEDS ORDERED: Darbepoetin Alfa 100 mcg/ml Inj IVP SCH (08:15)
[2017-01-06] MEDS: Darbepoetin Alfa 100 mcg/ml Inj IVP SCH (08:30)
--- NOTE | 2017-01-06 08:51 | PN ---
DATE: 01/06/2017 SUBJECTIVE: The patient was seen in dialysis. She denies any overt GI bleeding, melena, nausea, vomiting, chest pain or shortness of breath. PHYSICAL EXAMINATION: VITAL SIGNS: Reveal temperature of 98.9, blood pressure of 137/59, and heart rate of 82. HEENT: Reveals sclerae to be white. Conjunctivae are pale. NECK: Supple. CHEST: Reveal lungs to be clear. HEART: Exam reveals regular rate and rhythm. GASTROINTESTINAL: Abdomen is soft and nontender. EXTREMITIES: Show no edema. LABORATORY DATA: Revealed hemoglobin of 8.7, white blood cell count of 8.3, BUN of 24, creatinine of 3.7, potassium of 3.5, blood sugar of 254. IMPRESSION: 1. Anemia most likely secondary to chronic gastrointestinal blood loss possibly from an arteriovenous malformation given her critical aortic stenosis. There is no evidence of overt gastrointestinal bleeding. 2. Critical aortic stenosis. 3. Coronary artery disease status post coronary artery stent placement. 4. Staphylococcus sepsis secondary to PermCath 5. End-stage renal disease. 6. Chronic systolic heart failure. 7. Critical aortic stenosis. RECOMMENDATIONS: After discussing this case with senior maintenance machinist Dr. Chauhan. I will hold off on doing an endoscopy and colonoscopy until after the patient has a TAVR. The patient is at high risk for deep conscious and monitored anesthesia care due to her critical . She is not actively bleeding at this time. She also has Staph sepsis. RECOMMENDATIONS 1. Continue PPI. 2. Iron replacement. 3. Follow serial hematocrits. 4. Elective endoscopy and colonoscopy after the patient has TAVR. Hima Gonzales MD cc:
[2017-01-06] MEDS: Vancomycin 1gm in NS 250ml 1 GM/250 ML BAG IVPB SCH (09:54)
--- NOTE | 2017-01-06 09:55 | PN ---
CARDIOLOGY FOLLOWUP DATE OF FOLLOWUP: 01/06/2017 SUBJECTIVE: The patient is without shortness breath. No chest pain. PHYSICAL EXAMINATION: VITAL SIGNS: Blood pressure is 137/60, the heart rate is in the 80s. NECK: Negative JVD. LUNGS: Without rales. HEART: S1, S2 with 3/6 systolic ejection murmur. EXTREMITIES: Without edema. LABORATORY DATA: The hemoglobin is 8.7. Chemistries; potassium is 3.5. IMPRESSION: 1. Gastrointestinal bleed. 2. Marked anemia. 3. End-stage renal disease. 4. Stable angina. 5. Critical aortic stenosis. I have discussed the next steps with Dr. Gonzales of GI and Dr. Cardona. The orders should be when the patient is ready, the patient go for TAVR . After TAVR, as long as her hemoglobin remained stable, the patient should undergo TAVR before undergoing invasive GI workup. William Chauhan MD
--- NOTE | 2017-01-06 10:03 | PN ---
SUBJECTIVE: The patient was seen and examined at bedside on the hemodialysis villeda. No acute events overnight. She remains afebrile, hemodynamically stable and chest pain free. This morning she endorses continued fatigue but otherwise offers no acute complaints. OBJECTIVE: VITAL SIGNS: Temperature 98.9, pulse 82, blood pressure 137/59, respiratory rate 19, oxygen saturation 92% on room air. GENERAL: No apparent distress. HEENT: PERRL, EOMI. No scleral icterus. Mild conjunctival pallor is noted. NECK: No JVD. LUNGS: Clear to auscultation. CARDIOVASCULAR: Regular rate and rhythm. Normal S1 and S2. Grade IV/ EVERARDO to RUSB ABDOMEN: Normoactive bowel sounds. Soft, nontender and nondistended. EXTREMITIES: Trace lower extremity edema bilaterally. NEUROLOGIC: Somnolent, but easily arousable. Awake, alert and oriented x3. No focal motor deficits. LABORATORY DATA: WBC 8.3 with 78% neutrophils, hemoglobin 8.7, hematocrit 26, platelets 230. Sodium 129, potassium 3.5, chloride 90, bicarbonate 31, BUN 24, creatinine 3.7, glucose 254. Blood cultures with Gram-positive cocci in clusters. ASSESSMENT: The patient is a 56 year old woman with CAD s/p PCI with stent placement, chronic systolic heart failure, severe , ESRD on HD, anemia of chronic disease and COPD who presented for evaluation of several day history of worsening malaise, fatigue and dyspnea and who was admitted to the telemetry villeda for management of NSTEMI, symptomatic anemia and who was subsequently found to have Staphylococcus aureus bacteremia. 1. Staphylococcus aureus bacteremia, consider secondary to line sepsis. Now that the patient's AV fistula is being used for dialysis, we will consult Dr. William Hendricks for removal of patient's Perm-A-Cath. Input from Dr. Stout noted and she remains on Vancomycin 1 g IV MWF with HD. Repeat blood cultures are ordered and pending. TTE demonstrated no intracardiac vegetations. 2. 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 Input of Dr. Gonzales noted and greatly appreciated. Laboratory studies demonstrate further drop in hemoglobin from 9.6 to 8.7. After conferring with Dr. Chauhan and Dr. Gonzales it is felt safest to defer colonoscopy and/or endoscopy until after the patient's aortic valve is repaired as well as resolution of her bacteremia. In the interim, we will monitor CBC daily and transfuse as needed. 3. NSTEMI. The patient is s/p cardiac catheterization with Dr. Chauhan, which demonstrated patent stents. Continue with medical therapy consisting of aspirin 81 mg p.o. daily, Plavix 75 mg p.o. daily and Lipitor 40 mg p.o. daily. 4. ESRD on HD. Input from Dr. Gleason noted and appreciated. Continue with care as per Dr. Gleason as above. We will consult Dr. Hendricks for removal of Perm- A-Cath. 5. Hypertension. Blood pressure controlled. Continue Norvasc 5 mg p.o. daily. 6. Chronic systolic heart failure. Continue care as per Dr. Chauhan. 7. COPD . Continue supplement oxygen and bronchodilators as needed. 8. Insulin-dependent diabetes mellitus. Fingerstick remain elevated. Increase Levemir to 20 units SC QPM and Humalog to 15 units SC TID. Continue medium-dose ISS and FS monitoring. Adjust medicines as needed. 9. Severe . Arrangements will be made for TAVR now that the AV fistula is matured. 10. Hyperlipidemia. Continue Lipitor 40 mg p.o. daily. 11. Prophylaxis. GI prophylaxis is not indicated as patient is eating. DVT prophylaxis is not indicated as patient is ambulatory. CODE STATUS: Full code. Ole Cardona MD [facility]
[2017-01-06] MEDS: Insulin Lispro 1 UNITS/0.01 ML SC SCH ×2 (11:49→18:27)
[2017-01-06] MEDS ORDERED: Lidocaine 2% Inj (20ml) ONE (14:10)
[2017-01-06] MEDS ORDERED: Nitroglycerin 50mg in D5W 50 MG/250 ML BOTTLE IV ONE (14:12)
[2017-01-06] MEDS ORDERED: Iodixanol 320 MG/ML 100 ML BOTTLE IV ONE (14:12)
--- NOTE | 2017-01-06 14:27 | CP.PCM.PN ---
Subjective - Date & Time of Evaluation Date of Evaluation: 01/06/17 Time of Evaluation: 09:40 - Subjective Subjective: PGY 2 Nephrology Note- Dr. Gleason's service Pt seen and examined in no acute distress. Patient states that she had hemodialysis earlier today without any complications. She is able to tolerate a diet as as well. She is usually a bit more mobile in her room; however has been resigned to the bed in the past few days due to fatigue. She is able to urinate to her norm. Patient was told that she had a fever overnight, but she did not herself feel subjectively warm. She had one formed bowel movement earlier this morning. She denies nausea, vomiting, diarrhea, chest pain or palpitations at this time. Objective - Vital Signs/Intake and Output Vital Signs (last 24 hours): Temp Pulse Resp BP Pulse Ox 98.9 F 82 19 137/59 L 92 L 01/06/17 06:00 01/06/17 06:00 01/06/17 06:00 01/06/17 06:00 01/06/17 06:00 Intake and Output: 01/06/17 01/06/17 06:59 18:59 Intake Total 360 Balance 360 - Medications Medications: Current Medications Acetaminophen (Tylenol 325mg Tab) 650 mg PO Q6H PRN PRN Reason: Pain, moderate (4-7) Last Admin: 01/06/17 03:00 Dose: 650 mg Albuterol/Ipratropium (Duoneb 3 Mg/0.5 Mg (3 Ml) Ud) 3 ml IH Q2H PRN PRN Reason: Shortness of Breath Albuterol/Ipratropium (Duoneb 3 Mg/0.5 Mg (3 Ml) Ud) 3 ml IH [id number] [facility] Last Admin: 01/06/17 08:33 Dose: Not Given Alprazolam (Xanax) 0.5 mg PO TID PRN; Protocol PRN Reason: Anxiety Last Admin: 01/05/17 17:26 Dose: 0.5 mg Amlodipine Besylate (Norvasc) 5 mg PO DAILY [facility] Last Admin: 01/05/17 09:29 Dose: 5 mg Aspirin (Aspirin Chewable) 81 mg PO DAILY [facility] Last Admin: 01/05/17 09:28 Dose: 81 mg Atorvastatin Calcium (Lipitor) 10 mg PO DIN [facility] Last Admin: 01/05/17 17:22 Dose: 10 mg Clopidogrel Bisulfate (Plavix) 75 mg PO DAILY [facility] Last Admin: 01/05/17 09:29 Dose: 75 mg Codeine Sulfate (Codeine) 30 mg PO Q8H PRN PRN Reason: Pain, moderate (4-7) Last Admin: 01/06/17 03:00 Dose: 30 mg Darbepoetin Lizandro (Aranesp) 100 mcg IVP ONCE [facility] Ferrous Sulfate (Feosol) 324 mg PO BID [facility] Last Admin: 01/06/17 00:51 Dose: Not Given Vancomycin HCl (Vancomycin 1gm) 1 gm in 250 mls @ 167 mls/hr IVPB MWF [facility] PRN Reason: Protocol Insulin Detemir (Levemir) 20 unit SC HS [facility] Insulin Human Lispro (Humalog) 15 units SC ACTID [facility] Insulin Human Regular (Humulin R Med) 0 units SC ACHS [facility] PRN Reason: Protocol Last Admin: 01/05/17 22:06 Dose: Not Given Metoprolol Tartrate (Lopressor) 50 mg PO BRKDIN [facility] Last Admin: 01/05/17 17:25 Dose: 50 mg Morphine Sulfate (Morphine) 1 mg IVP Q4H PRN PRN Reason: Pain, moderate (4-7) Sevelamer HCl (Renagel) 1,600 mg PO TID [facility] Last Admin: 01/05/17 17:27 Dose: 1,600 mg Torsemide (Demadex) 100 mg PO BID [facility] Last Admin: 01/05/17 17:22 Dose: 100 mg Trazodone HCl (Desyrel) 50 mg PO [facility] Last Admin: 01/05/17 22:02 Dose: 50 mg - Labs Labs: 01/06/17 06:00 01/06/17 06:00 PT 12.6 SECONDS (9.4-12.5) H 01/03/17 00:08 INR 1.15 (0.93-1.08) H 01/03/17 00:08 APTT 21.7 Seconds (25.1-36.5) L 01/03/17 00:08 - Constitutional Appears: Non-toxic, No Acute Distress - Head Exam Head Exam: ATRAUMATIC, NORMAL INSPECTION - Eye Exam Eye Exam: EOMI, Normal appearance, PERRL Pupil Exam: NORMAL ACCOMODATION - ENT Exam ENT Exam: Mucous Membranes Moist - Neck Exam Neck Exam: Full ROM - Respiratory Exam Respiratory Exam: NORMAL BREATHING PATTERN. absent: Wheezes - Cardiovascular Exam Cardiovascular Exam: +S1, +S2, Murmur Additional comments: systolic murmur, bruit appreciated - GI/Abdominal Exam GI & Abdominal Exam: Soft, Normal Bowel Sounds - Extremities Exam Extremities Exam: Full ROM, Normal Capillary Refill. absent: Pedal Edema, Tenderness - Back Exam Back Exam: Full ROM - Neurological Exam Neurological Exam: Alert, Awake, Oriented x3 - Psychiatric Exam Psychiatric exam: Normal Affect, Normal Mood - Skin Skin Exam: Dry, Normal Color, Warm Assessment and Plan (1) ESRD (end stage renal disease) on dialysis Status: Chronic (2) Demand ischemia Status: Acute (3) Anemia Status: Chronic (4) Aortic stenosis Status: Chronic (5) CAD (coronary artery disease) Status: Chronic (6) Hypertensive chronic kidney disease Status: Chronic - Assessment and Plan (Free Text) Assessment: ESRD (end stage renal disease) on dialysis Assessment & Plan: Tolerated dialysis earlier today on HD M,W,F Status: Chronic Anemia Assessment & Plan: Patient's Hemoglobin is 8.7. Patient had an adverse reaction to IV iron and thus will receive a dose of Aranesp. On Feosol as well. GI recommendations were to wait until TAVR procedure before performing endoscopic workup. It is thought that patient may have a bleed somewhere, but it is unclear as to where. There is a known correlation between AVMs and aortic stenosis that will need to be looked into. Cont to monitor Hgb/Hct. Recommendations for transfusion if necessary. Patient had a bowel movement today - F/U stool occult blood as well. Status: Chronic Positive Blood Cultures Assessment & Plan: Positive cultures on 01/02 and 01/03. Repeat cultures drawn on 01/05 No signs of fevers No present Leukocytosis Recommendations for removal of dialysis catheter instead if waiting until next week due to positive cultures. IR ( Dr. Hendricks) to check fistula site today. F/U US of page hospitalacat area to rule out DVT On Vancomycin- This will need to be renally dosed. F/U troughs Status: Acute Demand ischemia Assessment & Plan: It is thought that patient's elevated troponin was likely due to demand ischemia. Patient states that there was no recommendation for stent placement following cath today. Prior stents placed were patent. LAD revealed diffuse atherosclerosis as well as 40-50% stenosis in proximal portion. Refer to complete report. Recommendations were largely in favor of proceeding towards TAVR procedure once current pressing workup is complete. Status: Acute Aortic stenosis Assessment & Plan: Patient is in need of a TAVR procedure. Dialysis catheter is scheduled to be removed; however need to rule out this infection before proceeding. Will follow up. Status: Chronic CAD (coronary artery disease) Assessment & Plan: Mineral bone disease noted. Patient is on Sevelamer with meals. Status: Chronic Hypertensive chronic kidney disease Assessment & Plan: Continue medications and dosing as recommended: Amlodipine, Metoprolol, and Torsemide Continue to monitor Status: Chronic Diabetes Mellitus Assessment & Plan: Continued medication management. Outpatient dietary and exercise compliance. Status: Chronic Discussed with attending Dr. Gleason. Yusuf García, PGY 2
[2017-01-06] MEDS ORDERED: Midazolam 2 MG/2 ML VIAL ONE ×2 (14:36→15:05)
--- NOTE | 2017-01-06 15:50 | CP.PCM.PN ---
Subjective - Date & Time of Evaluation Date of Evaluation: 01/06/17 Time of Evaluation: 10:20 - Subjective Subjective: Comfortable, no fevers, no pain at the permacath site, no chest pain. Objective - Vital Signs/Intake and Output Vital Signs (last 24 hours): Temp Pulse Resp BP Pulse Ox 98.9 F 82 19 137/59 L 92 L 01/06/17 06:00 01/06/17 06:00 01/06/17 06:00 01/06/17 06:00 01/06/17 06:00 Intake and Output: 01/06/17 01/06/17 06:59 18:59 Intake Total 360 Balance 360 - Medications Medications: Current Medications Acetaminophen (Tylenol 325mg Tab) 650 mg PO Q6H PRN PRN Reason: Pain, moderate (4-7) Last Admin: 01/06/17 03:00 Dose: 650 mg Albuterol/Ipratropium (Duoneb 3 Mg/0.5 Mg (3 Ml) Ud) 3 ml IH Q2H PRN PRN Reason: Shortness of Breath Albuterol/Ipratropium (Duoneb 3 Mg/0.5 Mg (3 Ml) Ud) 3 ml IH [id number] [facility] Last Admin: 01/06/17 08:33 Dose: Not Given Alprazolam (Xanax) 0.5 mg PO TID PRN; Protocol PRN Reason: Anxiety Last Admin: 01/05/17 17:26 Dose: 0.5 mg Amlodipine Besylate (Norvasc) 5 mg PO DAILY [facility] Last Admin: 01/05/17 09:29 Dose: 5 mg Aspirin (Aspirin Chewable) 81 mg PO DAILY [facility] Last Admin: 01/05/17 09:28 Dose: 81 mg Atorvastatin Calcium (Lipitor) 10 mg PO DIN [facility] Last Admin: 01/05/17 17:22 Dose: 10 mg Clopidogrel Bisulfate (Plavix) 75 mg PO DAILY [facility] Last Admin: 01/05/17 09:29 Dose: 75 mg Codeine Sulfate (Codeine) 30 mg PO Q8H PRN PRN Reason: Pain, moderate (4-7) Last Admin: 01/06/17 03:00 Dose: 30 mg Darbepoetin Lizandro (Aranesp) 100 mcg IVP ONCE [facility] Ferrous Sulfate (Feosol) 324 mg PO BID [facility] Last Admin: 01/06/17 00:51 Dose: Not Given Vancomycin HCl (Vancomycin 1gm) 1 gm in 250 mls @ 167 mls/hr IVPB MWF [facility] PRN Reason: Protocol Insulin Detemir (Levemir) [address] [facility] Insulin Human Lispro (Humalog) 15 units SC ACTID [facility] Insulin Human Regular (Humulin R Med) 0 units SC ACHS [facility] PRN Reason: Protocol Last Admin: 01/05/17 22:06 Dose: Not Given Metoprolol Tartrate (Lopressor) 50 mg PO BRKDIN [facility] Last Admin: 01/05/17 17:25 Dose: 50 mg Morphine Sulfate (Morphine) 1 mg IVP Q4H PRN PRN Reason: Pain, moderate (4-7) Sevelamer HCl (Renagel) 1,600 mg PO TID [facility] Last Admin: 01/05/17 17:27 Dose: 1,600 mg Torsemide (Demadex) 100 mg PO BID [facility] Last Admin: 01/05/17 17:22 Dose: 100 mg Trazodone HCl (Desyrel) [address] [facility] Last Admin: 01/05/17 22:02 Dose: 50 mg - Labs Labs: 01/06/17 06:00 01/06/17 06:00 PT 12.6 SECONDS (9.4-12.5) H 01/03/17 00:08 INR 1.15 (0.93-1.08) H 01/03/17 00:08 APTT 21.7 Seconds (25.1-36.5) L 01/03/17 00:08 - Constitutional Appears: Non-toxic - Head Exam Head Exam: NORMAL INSPECTION - ENT Exam ENT Exam: Mucous Membranes Moist - Neck Exam Neck Exam: absent: Meningismus - Respiratory Exam Respiratory Exam: Decreased Breath Sounds Additional comments: right anterior chest wall permacath in place - Cardiovascular Exam Cardiovascular Exam: +S1, +S2 - GI/Abdominal Exam GI & Abdominal Exam: Soft. absent: Tenderness Assessment and Plan - Assessment and Plan (Free Text) Plan: Assessment Probable sepsis (fever, tachycardia) due to coagulase negative staph bacteremia , R/O due to Permacath CAD S/P PCI and stents placed DM chronic renal failure now on chronic dialysis for 7 months now HTN chronic CHF Plan repeat blood cx 01/05 are negative so far; continue IV Vancomycin 15 mg/kg every dialysis session and was given 1 gm yesterday - will get Vanco level before HD session on Wednesday - follow up sensitivities of the coagulase negative staph in the blood 2D echo does not show vegetations ultrasound of permacath area does not show DVT - still recommend to remove Permacath will continue to monitor clinically
--- NOTE | 2017-01-06 18:56 | VASCULAR ---
PROCEDURE: 1. Left upper extremity AV fistula angiogram 2. Venous angioplasty HISTORY: End-stage renal disease. Malfunctioning AV access PHYSICIAN(S): William Hendricks MD. TECHNIQUE: The relative risks and indications of the procedure were explained to the patient and consent obtained. The patient was placed supine on the angiography table and the left arm prepped and draped in usual sterile fashion. Conscious sedation and monitoring provided throughout the procedure by a nurse. The left arm AV fistula was punctured near the elbow in an antegrade fashion under ultrasound guidance with a micropuncture set. A 5 Yoruba catheter was placed. An overlapping left upper extremity AV fistula angiogram was performed. Central venous imaging was obtained. Pressure was applied near the access site and reflux of the arterial anastomosis performed. A 6 Yoruba sheath was placed at the puncture site. The severe stenosis in the mid left cephalic vein was crossed with angled glidewire. The left cephalic vein stenosis was dilated with a 7 mm x 8 cm balloon. An excellent angiographic result was obtained. Post dilatation images were performed. The sheath was removed and hemostasis obtained with a purse string suture. FINDINGS: The patient's left brachial -cephalic fistula is patent. The arterial anastomosis is normal. There is a severe 6 cm tapered stenosis in the mid left cephalic vein. The central veins are widely patent. IMPRESSION: 1. Severe stenosis in the mid left cephalic vein. 2. Successful dilatation with a 7 mm angioplasty balloon.
[2017-01-06] MEDS: Insulin Detemir 100 units/ml Vial (Levemir) SC SCH (22:20)
[2017-01-07] MEDS: Insulin Reg-MEDIUM-Coverage SC SCH ×4 (00:55→16:40)
[2017-01-07 07:00] LABS: BASO # 0.02 K/mm3 (0.0-2.0); BASO % 0.2 % (0.0-3.0); EOS # 0.2 (0.0-0.7); EOS % 2.5 % (1.5-5.0); GRAN # 6.69 (1.4-6.5); GRAN % 71.9 % (50.0-68.0); HEMATOCRIT 26.9 % (36.0-48.0); LYMPH # 1.5 (1.2-3.4); LYMPH % 16.4 % (22.0-35.0); MEAN CELL VOLUME 91.8 fl (80.0-105.0); MEAN CORPUSCULAR HEMOGLOBIN 30.4 pg (25.0-35.0); MEAN CORPUSCULAR HGB CONC 33.1 g/dl (31.0-37.0); MEAN PLATELET VOLUME 10.4 fl (7.0-11.0); MONO # 0.8 (0.1-0.6); RED CELL DISTRIBUTION WIDTH 14.7 % (11.5-14.5); WHITE BLOOD COUNT 9.3 10^3/ul (4.5-11.0)
[2017-01-07 07:26] LABS: BILIRUBIN,TOTAL 0.5 mg/dL (0.2-1.3); CALCIUM 8.3 mg/dL (8.4-10.5); POTASSIUM 3.9 mmol/L (3.6-5.0); TOTAL PROTEIN 5.7 g/dL (5.8-8.3)
[2017-01-07] MEDS: Albuterol-Ipratrop 3 mg / 0.5 (3 ml) UD IH SCH ×3 (07:45→19:47)
[2017-01-07] MEDS: Insulin Lispro 1 UNITS/0.01 ML SC SCH ×3 (08:28→17:38)
[2017-01-07] MEDS: Darbepoetin Alfa 100 mcg/ml Inj IVP SCH (09:01)
--- NOTE | 2017-01-07 09:33 | PN ---
SUBJECTIVE: The patient was seen and examined at bedside on the telemetry villeda. No acute events overnight. She is s/p dilatation of her AV fistula with Dr. William Hendricks. This morning she reports mild discomfort at the AV fistula site in her left upper extremity and also reports fatigue but otherwise denies fever, chills, rigors, nausea, vomiting, diarrhea or blood per rectum. OBJECTIVE: VITAL SIGNS: T 98.9, P 68, BP 141/58, RR 20, and oxygen saturation of 96% on 2 L nasal cannula. GENERAL: No apparent distress. HEENT: PERRL. EOMI. No scleral icterus. Mild conjunctival pallor is noted. NECK: No JVD. LUNGS: Clear to auscultation. CARDIOVASCULAR: Regular rate and rhythm. Normal S1 and S2. Grade IV/ [place]ER[place]O to RUSB. ABDOMEN: Normoactive bowel sounds. Soft, nontender and nondistended. EXTREMITIES: Trace lower extremity edema bilaterally. NEUROLOGIC: Somnolent, but arousable. Alert and oriented x3. No focal motor deficits. LABORATORY DATA: WBC of 9.3 with 72% neutrophils, hemoglobin of 8.9, hematocrit of 27, and platelets of 255. Sodium of 126, potassium of 3.9, chloride of 87, bicarbonate of 31, BUN of 31, creatinine of 4.3, and glucose of 290. Blood cultures (01/02/2017) with MSSA. Blood cultures (01/05/2017) with no growth to date. ASSESSMENT: The patient is a 56 year old woman with CAD s/p PCI with stent placement, chronic systolic HF, severe , ESRD on HD, COPD and anemia of chronic disease who presented for evaluation of several-day history of worsening malaise, fatigue and dyspnea and who was admitted to the telemetry villeda for management of NSTEMI, symptomatic anemia and who was subsequently found to have MSSA bacteremia. PLAN: 1. MSSA bacteremia, consider secondary to line sepsis. Ideally the patient should have her PermCath access removed however given complications with her AV fistula and the need for dilation yesterday with Dr. William Hendricks, we need to maintain access for hemodialysis. Once her AV fistula is functioning properly we will pursue removal of PermCath as soon as feasible. Input from Dr. Stout noted and appreciated and the patient remains on Vancomycin 1 g IV Wednesday, Wednesday and Wednesday with HD. Repeat blood cultures are negative to date. TTE negative for intracardiac vegetations. 2. 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 Input of Dr. Gonzales noted and appreciated. Labs demonstrates stable H/H. Stool occult blood negative. Continue to monitor CBC daily 3. NSTEMI. The patient is s/p cardiac catheterization which demonstrated patent stents. Continue Aspirin 81 mg p.o. daily, Plavix 75 mg p.o. daily and Lipitor 40 mg p.o. daily. 4. ESRD on HD. Input from Dr. Gleason noted and appreciated. Continue with care as per Dr. Gleason. We will remove the patient's PermCath as soon as possible. 5. Hypertension. Blood pressure controlled. Continue Norvasc 5 mg p.o. daily. 6. Systolic heart failure, chronic. Continue care as per Dr. Chauhan. 7. CAD s/p PCI with stent placement. Continue with care as per Dr. Chauhan. 8. COPD. Continue supplement oxygen and bronchodilators as needed. 9. Insulin-dependent diabetes mellitus. Continue Levemir 20 units SC QPM and Humalog 15 units SC TID with meals. Continue medium-dose insulin sliding scale. We will continue to monitor fingerstick q.a.c. and at bedtime and adjust medication as needed. 10. Severe . Arrangements will be made for TAVR. 11. Hyperlipidemia. Continue Lipitor 40 mg p.o. daily. 12. Prophylaxis. GI prophylaxis not indicated as the patient is eating. DVT prophylaxis not indicated as the patient is ambulatory. CODE STATUS: Full code. Ole Cardona MD [facility]
--- NOTE | 2017-01-07 11:23 | CP.PCM.PN ---
Subjective - Date & Time of Evaluation Date of Evaluation: 01/07/17 Time of Evaluation: 09:40 - Subjective Subjective: Comfortable in bed, no chest pain. Had dilation done on the AV-fistula yesterday and patient states it was very painful. No fevers overnight. Objective - Vital Signs/Intake and Output Vital Signs (last 24 hours): Temp Pulse Resp BP Pulse Ox 98.9 F 68 19 141/58 L 92 L 01/07/17 06:00 01/07/17 06:00 01/07/17 06:00 01/07/17 06:00 01/07/17 06:00 Intake and Output: 01/07/17 01/07/17 06:59 18:59 Intake Total 120 Balance 120 - Medications Medications: Current Medications Acetaminophen (Tylenol 325mg Tab) 650 mg PO Q6H PRN PRN Reason: Pain, moderate (4-7) Last Admin: 01/06/17 18:25 Dose: 650 mg Albuterol/Ipratropium (Duoneb 3 Mg/0.5 Mg (3 Ml) Ud) 3 ml IH Q2H PRN PRN Reason: Shortness of Breath Albuterol/Ipratropium (Duoneb 3 Mg/0.5 Mg (3 Ml) Ud) 3 ml IH [id number] [facility] Last Admin: 01/07/17 07:45 Dose: 3 ml Alprazolam (Xanax) 0.5 mg PO TID PRN; Protocol PRN Reason: Anxiety Last Admin: 01/06/17 22:24 Dose: 0.5 mg Amlodipine Besylate (Norvasc) 5 mg PO DAILY [facility] Last Admin: 01/06/17 09:51 Dose: 5 mg Aspirin (Aspirin Chewable) 81 mg PO DAILY [facility] Last Admin: 01/06/17 09:51 Dose: 81 mg Atorvastatin Calcium (Lipitor) 10 mg PO DIN [facility] Last Admin: 01/06/17 18:22 Dose: 10 mg Clopidogrel Bisulfate (Plavix) 75 mg PO DAILY [facility] Last Admin: 01/06/17 09:51 Dose: 75 mg Codeine Sulfate (Codeine) 30 mg PO Q8H PRN PRN Reason: Pain, moderate (4-7) Last Admin: 01/06/17 18:43 Dose: 30 mg Darbepoetin Lizandro (Aranesp) 100 mcg IVP ONCE [facility] Last Admin: 01/06/17 08:30 Dose: 100 mcg Ferrous Sulfate (Feosol) 324 mg PO BID [facility] Last Admin: 01/06/17 18:21 Dose: 324 mg Vancomycin HCl (Vancomycin 1gm) 1 gm in 250 mls @ 167 mls/hr IVPB MWF [facility] PRN Reason: Protocol Last Admin: 01/06/17 09:54 Dose: 167 mls/hr Insulin Detemir (Levemir) 20 unit SC HS [facility] Last Admin: 01/06/17 22:20 Dose: 20 unit Insulin Human Lispro (Humalog) 15 units SC ACTID [facility] Last Admin: 01/06/17 18:27 Dose: 15 units Insulin Human Regular (Humulin R Med) 0 units SC ACHS [facility] PRN Reason: Protocol Last Admin: 01/07/17 00:55 Dose: Not Given Metoprolol Tartrate (Lopressor) 50 mg PO BRKDIN [facility] Last Admin: 01/06/17 18:22 Dose: 50 mg Morphine Sulfate (Morphine) 1 mg IVP Q4H PRN PRN Reason: Pain, moderate (4-7) Sevelamer HCl (Renagel) 1,600 mg PO TID [facility] Last Admin: 01/06/17 18:21 Dose: 1,600 mg Torsemide (Demadex) 100 mg PO BID [facility] Last Admin: 01/06/17 18:21 Dose: 100 mg Trazodone HCl (Desyrel) 50 mg PO [facility] Last Admin: 01/06/17 22:20 Dose: 50 mg - Labs Labs: 01/07/17 06:00 01/07/17 06:00 PT 12.6 SECONDS (9.4-12.5) H 01/03/17 00:08 INR 1.15 (0.93-1.08) H 01/03/17 00:08 APTT 21.7 Seconds (25.1-36.5) L 01/03/17 00:08 - Constitutional Appears: Non-toxic - Head Exam Head Exam: NORMAL INSPECTION - ENT Exam ENT Exam: Mucous Membranes Moist - Neck Exam Neck Exam: absent: Lymphadenopathy, Meningismus - Respiratory Exam Respiratory Exam: Decreased Breath Sounds Additional comments: right anterior chest wall HD catheter in place - Cardiovascular Exam Cardiovascular Exam: +S1, +S2 - GI/Abdominal Exam GI & Abdominal Exam: Soft. absent: Tenderness - Extremities Exam Additional comments: left arm AV fistula in place Assessment and Plan - Assessment and Plan (Free Text) Plan: Assessment Probable sepsis (fever, tachycardia) due to coagulase negative staph bacteremia , R/O due to Permacath CAD S/P PCI and stents placed DM chronic renal failure now on chronic dialysis for 7 months now HTN chronic CHF Plan repeat blood cx 01/05 are negative so far; continue IV Vancomycin 15 mg/kg every dialysis session and an extra dose was given 1 gm 2 days ago - will get Vanco level before HD session on Wednesday - follow up sensitivities of the coagulase negative staph in the blood 2D echo does not show vegetations ultrasound of permacath area does not show DVT - still recommend to remove Permacath will continue to monitor clinically discussed with Dr. Agarwal
--- NOTE | 2017-01-07 11:43 | PN ---
CARDIOLOGY FOLLOWUP DATE: 01/07/2017 SUBJECTIVE: The patient is asymptomatic in bed. OBJECTIVE: VITAL SIGNS: Blood pressure is 141/58 and heart rate is in the 80s. NECK: Negative JVD. LUNGS: Clear to auscultation. HEART: Reveals a 3/6 systolic ejection murmur. EXTREMITIES: Without edema. LABORATORY DATA: Hemoglobin is 8.9. Chemistries, glucose is 290. IMPRESSION: 1. End-stage renal disease. 2. Diabetes mellitus. 3. Stable angina. 4. Critical aortic stenosis. PLAN: The patient is status post dilatation of her dialysis shunt. Once the shunt is working properly, the patient can be sent to [facility] for TAVR. Her hemoglobin remained stable. We will discontinue telemetry today. William Chauhan MD
--- NOTE | 2017-01-07 14:58 | CP.PCM.PN ---
Subjective - Date & Time of Evaluation Date of Evaluation: 01/07/17 Time of Evaluation: 10:30 - Subjective Subjective: 56 yo F w/ pmh of htn, dm, severe , CHF, CAD s/p stent, and ESRD on HD, admitted with symptomatic anemia; Patient reports some shortness of breath; denies excessive fluid intake but does admit to consuming ice through the day; some pain at site of AVF s/p intervention but distally, hand pain is improved; Objective - Vital Signs/Intake and Output Vital Signs (last 24 hours): Temp Pulse Resp BP Pulse Ox 98.9 F 96 H 19 141/58 L 92 L 01/07/17 06:00 01/07/17 10:03 01/07/17 06:00 01/07/17 06:00 01/07/17 06:00 Intake and Output: 01/07/17 01/07/17 06:59 18:59 Intake Total 120 Balance 120 - Medications Medications: Current Medications Acetaminophen (Tylenol 325mg Tab) 650 mg PO Q6H PRN PRN Reason: Pain, moderate (4-7) Last Admin: 01/07/17 08:57 Dose: 650 mg Albuterol/Ipratropium (Duoneb 3 Mg/0.5 Mg (3 Ml) Ud) 3 ml IH Q2H PRN PRN Reason: Shortness of Breath Albuterol/Ipratropium (Duoneb 3 Mg/0.5 Mg (3 Ml) Ud) 3 ml IH [id number] [facility] Last Admin: 01/07/17 13:43 Dose: Not Given Alprazolam (Xanax) 0.5 mg PO TID PRN; Protocol PRN Reason: Anxiety Last Admin: 01/06/17 22:24 Dose: 0.5 mg Amlodipine Besylate (Norvasc) 5 mg PO DAILY [facility] Last Admin: 01/07/17 10:03 Dose: 5 mg Aspirin (Aspirin Chewable) 81 mg PO DAILY [facility] Last Admin: 01/07/17 10:03 Dose: 81 mg Atorvastatin Calcium (Lipitor) 10 mg PO DIN [facility] Last Admin: 01/06/17 18:22 Dose: 10 mg Clopidogrel Bisulfate (Plavix) 75 mg PO DAILY [facility] Last Admin: 01/07/17 10:02 Dose: 75 mg Darbepoetin Lizandro (Aranesp) 100 mcg IVP ONCE [facility] Last Admin: 01/07/17 09:01 Dose: 100 mcg Ferrous Sulfate (Feosol) 324 mg PO BID [facility] Last Admin: 01/07/17 10:03 Dose: 324 mg Vancomycin HCl (Vancomycin 1gm) 1 gm in 250 mls @ 167 mls/hr IVPB MWF [facility] PRN Reason: Protocol Last Admin: 01/06/17 09:54 Dose: 167 mls/hr Insulin Detemir (Levemir) 20 unit SC HS [facility] Last Admin: 01/06/17 22:20 Dose: 20 unit Insulin Human Lispro (Humalog) 15 units SC ACTID [facility] Last Admin: 01/07/17 13:16 Dose: 15 units Insulin Human Regular (Humulin R Med) 0 units SC ACHS [facility] PRN Reason: Protocol Last Admin: 01/07/17 13:17 Dose: 1 units Metoprolol Tartrate (Lopressor) 50 mg PO BRKDIN [facility] Last Admin: 01/07/17 08:30 Dose: 50 mg Sevelamer HCl (Renagel) 1,600 mg PO TID [facility] Last Admin: 01/07/17 13:24 Dose: 1,600 mg Torsemide (Demadex) 100 mg PO BID [facility] Last Admin: 01/07/17 10:02 Dose: 100 mg Trazodone HCl (Desyrel) 50 mg PO [facility] Last Admin: 01/06/17 22:20 Dose: 50 mg - Labs Labs: 01/07/17 06:00 01/07/17 06:00 PT 12.6 SECONDS (9.4-12.5) H 01/03/17 00:08 INR 1.15 (0.93-1.08) H 01/03/17 00:08 APTT 21.7 Seconds (25.1-36.5) L 01/03/17 00:08 - Constitutional Appears: Non-toxic, No Acute Distress - Head Exam Head Exam: NORMAL INSPECTION - Eye Exam Eye Exam: Normal appearance. absent: Scleral icterus - ENT Exam ENT Exam: Mucous Membranes Moist - Respiratory Exam Respiratory Exam: Clear to Ausculation Bilateral. absent: Rales, Rhonchi, Wheezes, Respiratory Distress - Cardiovascular Exam Cardiovascular Exam: REGULAR RHYTHM Additional comments: loud systolic murmur (chronic) - GI/Abdominal Exam GI & Abdominal Exam: Soft. absent: Distended, Tenderness - Extremities Exam Additional comments: minimal leg edema; - Neurological Exam Neurological Exam: Alert, Awake - Psychiatric Exam Psychiatric exam: Normal Affect, Normal Mood - Skin Skin Exam: Warm. absent: Cyanosis Assessment and Plan (1) ESRD (end stage renal disease) Assessment & Plan: Appears relatively euvolemic on exam despite some shortness of breath being reported; hyponatremia is dilutional due to excess water/ice consumption, patient counseled in this regard; Now s/p L arm AVF fistulogram yesterday with cephalic vein angioplasty, done after difficulty with cannulation; will attempt cannulation and plan to d/c HD catheter early next week; -Next HD for tomorrow; Status: Acute (2) Sepsis Assessment & Plan: Coag neg staph in blood, likely from HD cath; on vanco with repeat cultures neg ; case discussed with ID and recommendation is for 2 more weeks of IV vanco which we can give on outpatient HD; will seek to permanently remove HD catheter early next week; Status: Acute (3) Chronic kidney disease-mineral and bone disorder Assessment & Plan: On sevelamer for phos control, continue same; Status: Chronic (4) Anemia Assessment & Plan: s/p aranesp 100 mcg dose yesterday; hgb stable since yesterday; will continue to monitor weekly as outpatient and send for transfusion as needed (especially with patient unable to get IV venofer due to allergy); continue PO iron; Status: Acute (5) Aortic stenosis Assessment & Plan: Severe; contributed to demand ischemia on presentation; plan has been to send for TAVR once HD catheter removed; Status: Chronic
[2017-01-07] MEDS ORDERED: Morphine 2 mg/ml ISec IVP PRN (16:10)
--- NOTE | 2017-01-07 17:03 | PN ---
DATE: 01/07/2017 SUBJECTIVE: The patient is sitting in bed. She is comfortable. She denies any chest pain, shortness of breath, palpitations, abdominal pain, nausea and vomiting. PHYSICAL EXAMINATION: VITAL SIGNS: Reveal temperature of 98.9, blood pressure 141/58, heart rate 96. HEENT: Reveal sclerae to be white. Conjunctivae pale. NECK: Supple. CHEST: Reveal lungs to be clear. HEART: Reveals regular rate and rhythm with a 3/6 systolic murmur. ABDOMEN: Soft, nontender. EXTREMITIES: Show no edema. LABORATORY DATA: Reveal hemoglobin of 8.9, which is unstable over the last 48 hours, white blood cell count 9.3, platelet count 255,000. Chemistries reveal sodium of 126, chloride of 87, BUN 31, creatinine 4.3. IMPRESSION: 1. Anemia most likely secondary to chronic GI blood loss. 2. End-stage renal disease, on hemodialysis. 3. Staph sepsis most likely secondary to infected PermCath. 4. Critical aortic stenosis. RECOMMENDATIONS: 1. Continue IV antibiotics. 2. Continue iron replacement. 3. Elective endoscopy and colonoscopy. 4. Follow serum hematocrits. Hima Gonzales MD
[2017-01-07] MEDS: Insulin Detemir 100 units/ml Vial (Levemir) SC SCH (21:51)
[2017-01-08] MEDS: Insulin Reg-MEDIUM-Coverage SC SCH ×5 (00:51→21:36)
[2017-01-08] MEDS: Albuterol-Ipratrop 3 mg / 0.5 (3 ml) UD IH SCH ×5 (01:45→19:05)
[2017-01-08 06:29] LABS: BASO # 0.05 K/mm3 (0.0-2.0); BASO % 0.4 % (0.0-3.0); EOS # 0.3 (0.0-0.7); EOS % 2.5 % (1.5-5.0); GRAN # 9.37 (1.4-6.5); GRAN % 73.9 % (50.0-68.0); HEMATOCRIT 27.9 % (36.0-48.0); LYMPH # 2.1 (1.2-3.4); LYMPH % 16.4 % (22.0-35.0); MEAN CELL VOLUME 91.2 fl (80.0-105.0); MEAN CORPUSCULAR HEMOGLOBIN 30.1 pg (25.0-35.0); MONO # 0.9 (0.1-0.6); MONO % 6.8 % (1.0-6.0); RED CELL DISTRIBUTION WIDTH 14.5 % (11.5-14.5); WHITE BLOOD COUNT 12.7 10^3/ul (4.5-11.0)
[2017-01-08 07:00] LABS: BILIRUBIN,TOTAL 0.5 mg/dL (0.2-1.3); CALCIUM 8.7 mg/dL (8.4-10.5); POTASSIUM 4.3 mmol/L (3.6-5.0); TOTAL PROTEIN 5.9 g/dL (5.8-8.3)
[2017-01-08] MEDS: Insulin Lispro 1 UNITS/0.01 ML SC SCH ×3 (08:12→17:22)
--- NOTE | 2017-01-08 09:59 | PN ---
SUBJECTIVE: Patient is currently in room 377, bed 1. She has no complaints and there have been no acute events overnight. PHYSICAL EXAMINATION VITAL SIGNS: Temperature of 98.4, pulse rate of 76, blood pressure 150/72, respiratory rate of 20 with an O2 saturation of 93% on room air. HEENT: PERRLA. EOMI. NECK: Supple with full range of motion. There is no jugular venous distention. LUNGS: Clear bilaterally. HEART: Shows a regular rate with no murmurs. ABDOMEN: Benign. EXTREMITIES: Show AV shunt in the left upper arm. NEUROLOGIC: There are no focal motor deficits. DIAGNOSES: The current diagnosis is congestive heart failure, acute on chronic renal failure, uncontrolled hypertension, uncontrolled diabetes mellitus, diabetic ketoacidosis, anemia, end-stage renal disease. We will continue her dialysis and further current regimen. Miguel Cardona MD
[2017-01-08] MEDS ORDERED: HYDROmorphone 2 mg/ml ISec IVP PRN (10:20)
--- NOTE | 2017-01-08 10:51 | PN ---
DATE: 01/08/2017 SUBJECTIVE: The patient is lying in bed comfortable. She denies any rectal bleeding, melena, nausea, vomiting, or abdominal pain. She is awaiting dialysis through her AV fistula later today. PHYSICAL EXAMINATION: VITAL SIGNS: Reveal temperature of 98.4, blood pressure 150/72, heart rate 76. HEENT: Reveal sclerae to be white. Conjunctivae pink. NECK: Supple. CHEST: Reveal lungs to be clear. HEART: Reveals regular rate and rhythm. There is a 3/6 systolic murmur. ABDOMEN: Soft, nontender. EXTREMITIES: Show no edema. LABORATORY DATA: Reveal BUN 41, creatinine 5.7, blood sugar 230. Sodium 124, hemoglobin 9.2, white blood cell count 12.7. Stool for occult blood is negative from 01/06/2017. IMPRESSION: Anemia, multifactorial in etiology in a patient with end-stage renal disease, critical aortic stenosis, diabetes mellitus. Stool for occult blood is negative. The patient may have intermittent chronic gastrointestinal blood loss from gastrointestinal angiodysplasia. She does have critical aortic stenosis. RECOMMENDATIONS: 1. Continue p.o. iron. 2. Follow serial hematocrits. 3. Continue IV antibiotics Staph sepsis. 4. Elective endoscopy and colonoscopy given high risk for invasive procedures with critical aortic stenosis. This can be performed after her TAVR as again there is no evidence of any active or overt GI bleeding. Hima Gonzales MD
[2017-01-08] MEDS: Vancomycin 1gm in NS 250ml 1 GM/250 ML BAG IVPB SCH (13:30)
--- NOTE | 2017-01-08 16:25 | CP.PCM.PN ---
Subjective - Date & Time of Evaluation Date of Evaluation: 01/08/17 Time of Evaluation: 10:55 - Subjective Subjective: Comfortable, no fevers, not in distress. Objective - Vital Signs/Intake and Output Vital Signs (last 24 hours): Temp Pulse Resp BP Pulse Ox 98.4 F 76 20 150/72 93 L 01/08/17 09:09 01/08/17 09:09 01/08/17 09:09 01/08/17 09:09 01/08/17 09:09 - Medications Medications: Current Medications Acetaminophen (Tylenol 325mg Tab) 650 mg PO Q6H PRN PRN Reason: Pain, moderate (4-7) Last Admin: 01/07/17 08:57 Dose: 650 mg Albuterol/Ipratropium (Duoneb 3 Mg/0.5 Mg (3 Ml) Ud) 3 ml IH Q2H PRN PRN Reason: Shortness of Breath Albuterol/Ipratropium (Duoneb 3 Mg/0.5 Mg (3 Ml) Ud) 3 ml IH [id number] [facility] Last Admin: 01/08/17 09:00 Dose: Not Given Alprazolam (Xanax) 0.5 mg PO TID PRN; Protocol PRN Reason: Anxiety Last Admin: 01/07/17 21:47 Dose: 0.5 mg Amlodipine Besylate (Norvasc) 5 mg PO DAILY [facility] Last Admin: 01/07/17 10:03 Dose: 5 mg Aspirin (Aspirin Chewable) 81 mg PO DAILY [facility] Last Admin: 01/07/17 10:03 Dose: 81 mg Atorvastatin Calcium (Lipitor) 10 mg PO DIN [facility] Last Admin: 01/07/17 17:32 Dose: 10 mg Clopidogrel Bisulfate (Plavix) 75 mg PO DAILY [facility] Last Admin: 01/07/17 10:02 Dose: 75 mg Darbepoetin Lizandro (Aranesp) 100 mcg IVP ONCE [facility] Last Admin: 01/07/17 09:01 Dose: 100 mcg Ferrous Sulfate (Feosol) 324 mg PO BID [facility] Last Admin: 01/07/17 17:32 Dose: 324 mg Vancomycin HCl (Vancomycin 1gm) 1 gm in 250 mls @ 167 mls/hr IVPB MWF [facility] PRN Reason: Protocol Last Admin: 01/06/17 09:54 Dose: 167 mls/hr Insulin Detemir (Levemir) 20 unit SC HS [facility] Last Admin: 01/07/17 21:51 Dose: 20 unit Insulin Human Lispro (Humalog) 15 units SC ACTID [facility] Last Admin: 01/08/17 08:12 Dose: 15 units Insulin Human Regular (Humulin R Med) 0 units SC ACHS [facility] PRN Reason: Protocol Last Admin: 01/08/17 08:10 Dose: 3 units Metoprolol Tartrate (Lopressor) 50 mg PO BRKDIN [facility] Last Admin: 01/08/17 08:13 Dose: 50 mg Morphine Sulfate (Morphine) 1 mg IVP Q6 PRN PRN Reason: Pain, severe (8-10) Last Admin: 01/07/17 16:41 Dose: 1 mg Sevelamer HCl (Renagel) 1,600 mg PO TID [facility] Last Admin: 01/07/17 17:34 Dose: 1,600 mg Torsemide (Demadex) 100 mg PO BID [facility] Last Admin: 01/07/17 17:31 Dose: 100 mg Trazodone HCl (Desyrel) 50 mg PO [facility] Last Admin: 01/07/17 21:44 Dose: 50 mg - Labs Labs: 01/08/17 06:18 01/08/17 06:18 PT 12.6 SECONDS (9.4-12.5) H 01/03/17 00:08 INR 1.15 (0.93-1.08) H 01/03/17 00:08 APTT 21.7 Seconds (25.1-36.5) L 01/03/17 00:08 - Constitutional Appears: Non-toxic - Head Exam Head Exam: NORMAL INSPECTION - ENT Exam ENT Exam: Mucous Membranes Moist - Neck Exam Neck Exam: absent: Lymphadenopathy, Meningismus - Respiratory Exam Respiratory Exam: Decreased Breath Sounds Additional comments: right anterior chest wall Permacath in place - Cardiovascular Exam Cardiovascular Exam: +S1, +S2 - GI/Abdominal Exam GI & Abdominal Exam: Soft. absent: Tenderness Assessment and Plan - Assessment and Plan (Free Text) Plan: Assessment Probable sepsis (fever, tachycardia) due to methicillin-sensitive coagulase negative staph bacteremia, R/O due to Permacath CAD S/P PCI and stents placed DM chronic renal failure now on chronic dialysis for 7 months now HTN chronic CHF Plan repeat blood cx 01/05 are negative so far; continue IV Vancomycin every dialysis session -can decrease to 750 mg instead of 1 gm because Vanco level before HD session was 21.1 2D echo does not show vegetations ultrasound of permacath area does not show DVT - still recommend to remove Permacath - will need at least 2 weeks of antibiotics after Permacath removal will continue to monitor clinically discussed with Dr. Agarwal
[2017-01-08] MEDS: Vancomycin 750mg 750 MG/250 ML BAG IVPB SCH (16:59)
[2017-01-08] MEDS: Darbepoetin Alfa 100 mcg/ml Inj IVP SCH (18:19)
--- NOTE | 2017-01-08 19:08 | CP.PCM.PN ---
Subjective - Date & Time of Evaluation Date of Evaluation: 01/08/17 Time of Evaluation: 10:30 - Subjective Subjective: 56 yo F w/ pmh of htn, dm, CAD s/p stent, CHF, severe and ESRD on HD, admitted with symptomatic anemia, sepsis; Patient reports feeling well; ready to go home; not mentioning any shortness of breath today; trying to be cognizant of fluid restriction; Objective - Vital Signs/Intake and Output Vital Signs (last 24 hours): Temp Pulse Resp BP Pulse Ox 98.4 F 76 20 150/72 93 L 01/08/17 09:09 01/08/17 09:09 01/08/17 09:09 01/08/17 09:09 01/08/17 09:09 Intake and Output: 01/08/17 01/09/17 18:59 06:59 Intake Total 600 Balance 600 - Medications Medications: Current Medications Acetaminophen (Tylenol 325mg Tab) 650 mg PO Q6H PRN PRN Reason: Pain, moderate (4-7) Last Admin: 01/07/17 08:57 Dose: 650 mg Albuterol/Ipratropium (Duoneb 3 Mg/0.5 Mg (3 Ml) Ud) 3 ml IH Q2H PRN PRN Reason: Shortness of Breath Albuterol/Ipratropium (Duoneb 3 Mg/0.5 Mg (3 Ml) Ud) 3 ml IH [id number] [facility] Last Admin: 01/08/17 13:39 Dose: Not Given Alprazolam (Xanax) 0.5 mg PO TID PRN; Protocol PRN Reason: Anxiety Last Admin: 01/08/17 18:18 Dose: 0.5 mg Amlodipine Besylate (Norvasc) 5 mg PO DAILY [facility] Last Admin: 01/08/17 09:42 Dose: 5 mg Aspirin (Aspirin Chewable) 81 mg PO DAILY [facility] Last Admin: 01/08/17 09:42 Dose: 81 mg Atorvastatin Calcium (Lipitor) 10 mg PO DIN [facility] Last Admin: 01/08/17 17:21 Dose: 10 mg Clopidogrel Bisulfate (Plavix) 75 mg PO DAILY [facility] Last Admin: 01/08/17 09:42 Dose: 75 mg Ferrous Sulfate (Feosol) 324 mg PO BID [facility] Last Admin: 01/08/17 17:22 Dose: 324 mg Hydromorphone HCl (Dilaudid) 1 mg IVP Q4H PRN PRN Reason: Pain, severe (8-10) Vancomycin HCl (Vancomycin 750 Mg In Ns) 750 mg in 250 mls @ 167 mls/hr IVPB MWF [facility] PRN Reason: Protocol Last Admin: 01/08/17 16:59 Dose: 167 mls/hr Insulin Detemir (Levemir) 20 unit SC HS [facility] Last Admin: 01/07/17 21:51 Dose: 20 unit Insulin Human Lispro (Humalog) 15 units SC ACTID [facility] Last Admin: 01/08/17 17:22 Dose: 15 units Insulin Human Regular (Humulin R Med) 0 units SC ACHS [facility] PRN Reason: Protocol Last Admin: 01/08/17 17:21 Dose: 1 units Metoprolol Tartrate (Lopressor) 50 mg PO BRKDIN [facility] Last Admin: 01/08/17 17:22 Dose: 50 mg Sevelamer HCl (Renagel) 1,600 mg PO TID [facility] Last Admin: 01/08/17 17:22 Dose: 1,600 mg Torsemide (Demadex) 100 mg PO BID [facility] Last Admin: 01/08/17 18:18 Dose: 100 mg Tramadol HCl (Ultram) 50 mg PO TID PRN PRN Reason: Pain, moderate (4-7) Last Admin: 01/08/17 17:22 Dose: 50 mg Trazodone HCl (Desyrel) 50 mg PO [facility] Last Admin: 01/07/17 21:44 Dose: 50 mg - Labs Labs: 01/08/17 06:18 01/08/17 06:18 PT 12.6 SECONDS (9.4-12.5) H 01/03/17 00:08 INR 1.15 (0.93-1.08) H 01/03/17 00:08 APTT 21.7 Seconds (25.1-36.5) L 01/03/17 00:08 - Constitutional Appears: Well, No Acute Distress - Head Exam Head Exam: NORMAL INSPECTION - Eye Exam Eye Exam: Normal appearance. absent: Scleral icterus - Respiratory Exam Respiratory Exam: Clear to Ausculation Bilateral. absent: Rhonchi, Wheezes, Respiratory Distress - Cardiovascular Exam Cardiovascular Exam: REGULAR RHYTHM Additional comments: systolic murmur (chronic) - GI/Abdominal Exam GI & Abdominal Exam: Soft. absent: Distended, Tenderness - Extremities Exam Additional comments: mild lower leg edema; - Neurological Exam Neurological Exam: Alert, Awake - Psychiatric Exam Psychiatric exam: Normal Affect, Normal Mood. absent: Anxious - Skin Skin Exam: Warm. absent: Cyanosis Assessment and Plan (1) ESRD (end stage renal disease) Assessment & Plan: s/p L cephalic vein angioplasty yesterday; patient underwent successful cannulation of L arm AVF without incident today; HD performed at full blood flow ; nursing staff confident that they will be able to continue to cannulate AVF; Hyponatremia due to excessive free water/ice intake, counseled in this regard; will correct with HD; -next HD for Wednesday Status: Acute (2) Sepsis Assessment & Plan: Likely catheter related infection with coag neg staph; on vanco, trough somewhat high; discussed with ID and will decrease vanco dose to 750 mg qMWF; will continue as outpatient with HD for 2 more weeks; HD catheter to be removed JOANIE now that AVF appears fully functional (scheduled for Wednesday by IR); Status: Acute (3) Chronic kidney disease-mineral and bone disorder Assessment & Plan: On sevelamer 2 tabs with meals for phos control, continue; will avoid Ca supplements/binders as PTH is already over-suppressed; Status: Chronic (4) Anemia Assessment & Plan: Hgb stable s/p prbc transfusion; will monitor weekly and arrange for transfusion as needed; needs endoscopy but holding off until TAVR; Status: Acute (5) Aortic stenosis Assessment & Plan: Severe; currently asymptmatic; will have patient f/u with cardio next week after HD catheter removed; Status: Chronic (6) Hypertensive CKD, ESRD on dialysis Assessment & Plan: On metoprolol 50 bid and torsemide 100 bid, continue same; Status: Acute
[2017-01-08] MEDS: Insulin Detemir 100 units/ml Vial (Levemir) SC SCH (21:26)
[2017-01-08] MEDS: HYDROmorphone 0.5 mg/0.5 ml ISec IVP PRN (21:27)
[2017-01-09] MEDS: Albuterol-Ipratrop 3 mg / 0.5 (3 ml) UD IH SCH ×4 (01:39→20:03)
[2017-01-09] MEDS: HYDROmorphone 0.5 mg/0.5 ml ISec IVP PRN ×4 (06:39→22:30)
[2017-01-09 08:12] LABS: BASO # 0.02 K/mm3 (0.0-2.0); BASO % 0.2 % (0.0-3.0); EOS # 0.3 (0.0-0.7); EOS % 2.7 % (1.5-5.0); GRAN # 7.87 (1.4-6.5); GRAN % 75.8 % (50.0-68.0); LYMPH # 1.4 (1.2-3.4); LYMPH % 13.7 % (22.0-35.0); MEAN CELL VOLUME 91.8 fl (80.0-105.0); MEAN CORPUSCULAR HEMOGLOBIN 29.9 pg (25.0-35.0); MEAN CORPUSCULAR HGB CONC 32.6 g/dl (31.0-37.0); MEAN PLATELET VOLUME 10.2 fl (7.0-11.0); MONO # 0.8 (0.1-0.6); MONO % 7.6 % (1.0-6.0); RED CELL DISTRIBUTION WIDTH 14.8 % (11.5-14.5); WHITE BLOOD COUNT 10.4 10^3/ul (4.5-11.0)
[2017-01-09 08:35] LABS: BILIRUBIN,TOTAL 0.5 mg/dL (0.2-1.3); CALCIUM 8.7 mg/dL (8.4-10.5); POTASSIUM 3.7 mmol/L (3.6-5.0); TOTAL PROTEIN 6.3 g/dL (5.8-8.3)
[2017-01-09] MEDS: Insulin Reg-MEDIUM-Coverage SC SCH ×4 (09:22→22:06)
[2017-01-09] MEDS: Insulin Lispro 1 UNITS/0.01 ML SC SCH ×3 (09:22→17:21)
--- NOTE | 2017-01-09 09:35 | PN ---
SUBJECTIVE: The patient was seen and examined at bedside on the telemetry villeda. No acute events overnight. She remains afebrile and hemodynamically stable. This morning she continues to report fatigue but overall denies any new complaints and states she feels okay. PHYSICAL EXAMINATION VITAL SIGNS: Temperature 98.7, pulse 65, blood pressure 164/81, respiratory rate 20, oxygen saturation 99% on 2 liters nasal cannula. GENERAL: No apparent distress. HEENT: PERRL. EOMI. NECK: No scleral icterus. Mild conjunctival pallor is noted. NECK: No JVD. LUNGS: Clear to auscultation. CARDIOVASCULAR: Regular rate and rhythm. Normal S1 and S2. ABDOMEN: Normoactive bowel sounds. Soft, nontender, nondistended. EXTREMITIES: Trace lower extremity edema bilaterally. NEUROLOGIC: Awake, alert, and oriented x3. No focal motor deficits. LABORATORY DATA: WBC 10.4 with 76% neutrophils, hemoglobin 8.8, hematocrit 27, platelets 297. Chemistry pending. ASSESSMENT: The patient is a 56 year old woman with CAD s/p PCI with stent placement, chronic systolic HF, severe , ESRD on HD, COPD and anemia of chronic disease who presented for evaluation of a several day history of worsening malaise, fatigue and dyspnea who was admitted to the telemetry villeda for management of NSTEMI, symptomatic anemia and MSSA bacteremia. PLAN: 1. MSSA bacteremia, consider secondary to line sepsis. Inpu from Dr. Stout noted. The patient remains on Vancomycin 750 mg IV Wednesday, Wednesday, and Wednesday. Repeat blood cultures negative. TTE negative for intracardiac vegetations. Patient will need 2 weeks of antibiotics after removal of PermCath which we will pursue as soon as possible. 2. 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 Input from Dr. Gonzales noted. Labs with stable H/H. Will pursue GI evaluation with endoscopy/colonoscopy after patient's severe is repaired. 3. NSTEMI. She is s/p cardiac catheterization which demonstrated patent stents. Continue aspirin 81 mg p.o. daily, Plavix 75 mg p.o. daily, and Lipitor 40 mg p.o. daily. 4. ESRD on HD. Input from Dr. Gleason noted and appreciated. As above, we will remove PermCath as soon as possible. 5. Hypertension. Continue Lopressor 50 mg p.o. b.i.d. and amlodipine 5 mg p.o. daily. 6. Systolic heart failure, chronic. Continue care as per Dr. Chauhan. 7. CAD s/p stents. Continue with care as per Dr. Chauhan. 8. COPD. Continue supplemental oxygen and bronchodilators as needed. 9. IDDM. Continue Levemir 20 units SC QPM and Humalog 15 units SC TID with meals. Continue medium-dose ISS. 10. Severe . Arrangements will be made for TAVR. 11. Hyperlipidemia. Continue Lipitor 40 mg p.o. daily. 12. Prophylaxis. GI prophylaxis is not indicated as patientis eating. DVT prophylaxis is not indicated as patient is ambulatory. CODE STATUS: Full code. Ole Cardona MD MTDD
--- NOTE | 2017-01-09 11:36 | RAD ---
HISTORY: rule out pleural effusion, CHF COMPARISON: Comparison is made to 01/03/2017 TECHNIQUE: Chest PA and lateral FINDINGS: LUNGS: Heterogeneous opacity and infiltrate at the right lower lobe associated with mild elevation of the right hemidiaphragm. Findings may represent a pneumonia or atelectasis. Small opacity at the left lower lobe also noted. PLEURA: There is a small right pleural effusion. CARDIOVASCULAR: The cardiac silhouette is prominent in size. OSSEOUS STRUCTURES: No significant abnormalities. VISUALIZED UPPER ABDOMEN: Normal. OTHER FINDINGS: None. IMPRESSION: New heterogeneous opacity/infiltrate at the right lower lobe associated with small right pleural effusion. Findings may represent atelectasis or pneumonia.
[2017-01-09] MEDS ORDERED: Cefepime 1gm in NS 100ml 1 GM/100 ML BAG IVPB ONE (17:41)
--- NOTE | 2017-01-09 17:45 | CP.PCM.PN ---
Subjective - Date & Time of Evaluation Date of Evaluation: 01/09/17 Time of Evaluation: 10:00 - Subjective Subjective: 56 yo F w/ pmh of htn, dm, CHF, severe , and ESRD on HD, admitted with sympomatic anemia, catheter related bacteremia; Decreased O2 sat off nasal cannula per patient; reporting pain in L arm and upper chest; Objective - Vital Signs/Intake and Output Vital Signs (last 24 hours): Temp Pulse Resp BP Pulse Ox 98.4 F 70 20 140/68 95 01/09/17 17:26 01/09/17 17:26 01/09/17 17:26 01/09/17 17:26 01/09/17 17:26 Intake and Output: 01/09/17 01/09/17 06:59 18:59 Intake Total 600 700 Balance 600 700 - Medications Medications: Current Medications Acetaminophen (Tylenol 325mg Tab) 650 mg PO Q6H PRN PRN Reason: Pain, moderate (4-7) Last Admin: 01/07/17 08:57 Dose: 650 mg Albuterol/Ipratropium (Duoneb 3 Mg/0.5 Mg (3 Ml) Ud) 3 ml IH Q2H PRN PRN Reason: Shortness of Breath Albuterol/Ipratropium (Duoneb 3 Mg/0.5 Mg (3 Ml) Ud) 3 ml IH [id number] [facility] Last Admin: 01/09/17 14:02 Dose: Not Given Alprazolam (Xanax) 0.5 mg PO TID PRN; Protocol PRN Reason: Anxiety Last Admin: 01/09/17 11:09 Dose: 0.5 mg Amlodipine Besylate (Norvasc) 5 mg PO DAILY [facility] Last Admin: 01/09/17 09:22 Dose: 5 mg Aspirin (Aspirin Chewable) 81 mg PO DAILY [facility] Last Admin: 01/09/17 09:23 Dose: 81 mg Atorvastatin Calcium (Lipitor) 10 mg PO DIN [facility] Last Admin: 01/09/17 17:21 Dose: 10 mg Clopidogrel Bisulfate (Plavix) 75 mg PO DAILY [facility] Last Admin: 01/09/17 09:22 Dose: 75 mg Ferrous Sulfate (Feosol) 324 mg PO BID [facility] Last Admin: 01/09/17 17:20 Dose: 324 mg Hydromorphone HCl (Dilaudid) 0.5 mg IVP Q4H PRN PRN Reason: Pain, severe (8-10) Last Admin: 01/09/17 17:19 Dose: 0.5 mg Vancomycin HCl (Vancomycin 750 Mg In Ns) 750 mg in 250 mls @ 167 mls/hr IVPB MWF [facility] PRN Reason: Protocol Last Admin: 01/08/17 16:59 Dose: 167 mls/hr Cefepime HCl (Maxipime 1gm) 1 gm in 100 mls @ 100 mls/hr IVPB ONCE ONE PRN Reason: Protocol Stop: 01/09/17 18:40 Insulin Detemir (Levemir) 20 unit SC HS [facility] Last Admin: 01/08/17 21:26 Dose: 20 unit Insulin Human Lispro (Humalog) 15 units SC ACTID [facility] Last Admin: 01/09/17 17:21 Dose: 15 units Insulin Human Regular (Humulin R Med) 0 units SC ACHS [facility] PRN Reason: Protocol Last Admin: 01/09/17 16:43 Dose: Not Given Metoprolol Tartrate (Lopressor) 50 mg PO BRKDIN [facility] Last Admin: 01/09/17 17:20 Dose: 50 mg Sevelamer HCl (Renagel) 1,600 mg PO TID [facility] Last Admin: 01/09/17 17:20 Dose: 1,600 mg Torsemide (Demadex) 100 mg PO BID [facility] Last Admin: 01/09/17 17:20 Dose: 100 mg Tramadol HCl (Ultram) 50 mg PO TID PRN PRN Reason: Pain, moderate (4-7) Last Admin: 01/08/17 17:22 Dose: 50 mg Trazodone HCl (Desyrel) 50 mg PO [facility] Last Admin: 01/08/17 21:28 Dose: 50 mg - Labs Labs: 01/09/17 07:30 01/09/17 07:30 PT 12.6 SECONDS (9.4-12.5) H 01/03/17 00:08 INR 1.15 (0.93-1.08) H 01/03/17 00:08 APTT 21.7 Seconds (25.1-36.5) L 01/03/17 00:08 - Constitutional Appears: Non-toxic, No Acute Distress - Head Exam Head Exam: NORMAL INSPECTION - Eye Exam Eye Exam: Normal appearance. absent: Scleral icterus - Respiratory Exam Respiratory Exam: absent: Respiratory Distress Additional comments: Decreased breath sounds at R base; mild rales; - Cardiovascular Exam Cardiovascular Exam: RRR Additional comments: systolic murmur - GI/Abdominal Exam GI & Abdominal Exam: Soft. absent: Distended, Tenderness - Extremities Exam Additional comments: mild b/l lower leg edema; - Neurological Exam Neurological Exam: Alert, Awake - Psychiatric Exam Psychiatric exam: Normal Affect, Normal Mood - Skin Skin Exam: Warm. absent: Cyanosis Assessment and Plan (1) ESRD (end stage renal disease) Assessment & Plan: Stable volume status; CXR ordered due to shortness of breath, no pulm vascular congestion; still mild hyponatremia due to excess free water intake; no need for extra HD today, next for Wednesday per routine; Status: Acute (2) Sepsis Assessment & Plan: On vanco 750 mg qMWF for coag neg staph bacteremia, likely HD catheter related; catheter to be removed Wednesday by IR (no urgency as repeat blood culture negative ); CXR showing new RLL infiltrate, ID advising to start cefepime 1 g daily for empiric gram neg coverage (dosed for HD); Status: Acute (3) Anemia Assessment & Plan: Symptomatic anemia on presentation, now s/p prbc transfusion with relatively stable hgb; continue PO iron; will monitor hgb weekly and continue aranesp 100 mcg weekly; Status: Acute (4) Aortic stenosis Assessment & Plan: Severe but relatively asymptomatic with stable volume status; will f/u with cardio for TAVR after d/c; Status: Chronic (5) Hypertensive CKD, ESRD on dialysis Assessment & Plan: BP elevated, likely due to pain; continue current meds; Status: Acute (6) Chronic kidney disease-mineral and bone disorder Assessment & Plan: Continue sevelamer 2 tabs w/ meals for phos control; Status: Chronic
--- NOTE | 2017-01-09 18:32 | CP.PCM.PN ---
Subjective - Date & Time of Evaluation Date of Evaluation: 01/09/17 Time of Evaluation: 08:45 - Subjective Subjective: Comfortable, not in distress, no fevers. Has a little cough. Objective - Vital Signs/Intake and Output Vital Signs (last 24 hours): Temp Pulse Resp BP Pulse Ox 98.7 F 65 19 196/102 H 99 01/09/17 06:00 01/09/17 06:35 01/09/17 06:00 01/09/17 06:35 01/09/17 06:00 Intake and Output: 01/09/17 01/09/17 06:59 18:59 Intake Total 600 Balance 600 - Medications Medications: Current Medications Acetaminophen (Tylenol 325mg Tab) 650 mg PO Q6H PRN PRN Reason: Pain, moderate (4-7) Last Admin: 01/07/17 08:57 Dose: 650 mg Albuterol/Ipratropium (Duoneb 3 Mg/0.5 Mg (3 Ml) Ud) 3 ml IH Q2H PRN PRN Reason: Shortness of Breath Albuterol/Ipratropium (Duoneb 3 Mg/0.5 Mg (3 Ml) Ud) 3 ml IH [id number] [facility] Last Admin: 01/09/17 01:39 Dose: Not Given Alprazolam (Xanax) 0.5 mg PO TID PRN; Protocol PRN Reason: Anxiety Last Admin: 01/08/17 18:18 Dose: 0.5 mg Amlodipine Besylate (Norvasc) 5 mg PO DAILY [facility] Last Admin: 01/08/17 09:42 Dose: 5 mg Aspirin (Aspirin Chewable) 81 mg PO DAILY [facility] Last Admin: 01/08/17 09:42 Dose: 81 mg Atorvastatin Calcium (Lipitor) 10 mg PO DIN [facility] Last Admin: 01/08/17 17:21 Dose: 10 mg Clopidogrel Bisulfate (Plavix) 75 mg PO DAILY [facility] Last Admin: 01/08/17 09:42 Dose: 75 mg Ferrous Sulfate (Feosol) 324 mg PO BID [facility] Last Admin: 01/08/17 17:22 Dose: 324 mg Hydromorphone HCl (Dilaudid) 0.5 mg IVP Q4H PRN PRN Reason: Pain, severe (8-10) Last Admin: 01/09/17 06:39 Dose: 0.5 mg Vancomycin HCl (Vancomycin 750 Mg In Ns) 750 mg in 250 mls @ 167 mls/hr IVPB MWF [facility] PRN Reason: Protocol Last Admin: 01/08/17 16:59 Dose: 167 mls/hr Insulin Detemir (Levemir) 20 unit SC HS [facility] Last Admin: 01/08/17 21:26 Dose: 20 unit Insulin Human Lispro (Humalog) 15 units SC ACTID [facility] Last Admin: 01/08/17 17:22 Dose: 15 units Insulin Human Regular (Humulin R Med) 0 units SC ACHS [facility] PRN Reason: Protocol Last Admin: 01/08/17 21:36 Dose: Not Given Metoprolol Tartrate (Lopressor) 50 mg PO BRKDIN [facility] Last Admin: 01/09/17 06:35 Dose: 50 mg Sevelamer HCl (Renagel) 1,600 mg PO TID [facility] Last Admin: 01/08/17 17:22 Dose: 1,600 mg Torsemide (Demadex) 100 mg PO BID [facility] Last Admin: 01/08/17 18:18 Dose: 100 mg Tramadol HCl (Ultram) 50 mg PO TID PRN PRN Reason: Pain, moderate (4-7) Last Admin: 01/08/17 17:22 Dose: 50 mg Trazodone HCl (Desyrel) 50 mg PO [facility] Last Admin: 01/08/17 21:28 Dose: 50 mg - Labs Labs: 01/08/17 06:18 01/08/17 06:18 PT 12.6 SECONDS (9.4-12.5) H 01/03/17 00:08 INR 1.15 (0.93-1.08) H 01/03/17 00:08 APTT 21.7 Seconds (25.1-36.5) L 01/03/17 00:08 - Constitutional Appears: Non-toxic - Head Exam Head Exam: NORMAL INSPECTION - ENT Exam ENT Exam: Mucous Membranes Moist - Neck Exam Neck Exam: absent: Meningismus - Respiratory Exam Respiratory Exam: Decreased Breath Sounds - Cardiovascular Exam Cardiovascular Exam: +S1, +S2 - GI/Abdominal Exam GI & Abdominal Exam: Soft. absent: Tenderness Assessment and Plan - Assessment and Plan (Free Text) Plan: Assessment Probable sepsis (fever, tachycardia) due to methicillin-sensitive coagulase negative staph bacteremia, R/O due to Permacath; R/O HCAP CAD S/P PCI and stents placed DM chronic renal failure now on chronic dialysis for 7 months now HTN chronic CHF Plan repeat blood cx 01/05 are negative so far; continue IV Vancomycin every dialysis session -can decrease to 750 mg instead of 1 gm because Vanco level before HD session was 21.1 will start CEfepime as well 2D echo does not show vegetations ultrasound of permacath area does not show DVT - still recommend to remove Permacath - will need at least 2 weeks of antibiotics after Permacath removal will continue to monitor clinically discussed with Dr. Agarwal
[2017-01-09] MEDS: Insulin Detemir 100 units/ml Vial (Levemir) SC SCH (22:00)
--- NOTE | 2017-01-09 22:39 | PN ---
DATE: 01/09/2017 SUBJECTIVE: The patient is lying in bed comfortable. The patient underwent successful hemodialysis yesterday through her AV shunt in her left arm. She denies any overt GI bleeding. PHYSICAL EXAMINATION VITAL SIGNS: Reveal temperature of 98.7, blood pressure 164/81 and heart rate 65. HEENT: Reveal sclerae to be white. Conjunctivae pink. NECK: Supple. CHEST: Reveal lungs to be clear. HEART: Exam reveals a regular rate and rhythm. ABDOMEN: Soft and nontender. EXTREMITIES: Show no edema. She has an AV shunt in her left arm. LABORATORY DATA: Reveals hemoglobin 8.8. BUN 30 and creatinine 4.4. IMPRESSION AND PLAN: 1. Anemia, multifactorial in origin including chronic disease as well as possible chronic gastrointestinal blood loss from gastrointestinal angiodysplasia 2. End-stage renal disease on hemodialysis. 3. Staphylococcus sepsis secondary to infected hemodialysis catheter. 4. Critical aortic stenosis. RECOMMENDATIONS: 1. The patient is to have her Perm-A-Cath removed given the fact that hemodialysis was successfully performed through the AV shunt. 2. She is to follow up for TAVR. 3. Elective endoscopy and colonoscopy after TAVR. Hima Gonzales MD
[2017-01-10] MEDS: Albuterol-Ipratrop 3 mg / 0.5 (3 ml) UD IH SCH ×5 (02:25→21:00)
[2017-01-10] MEDS: HYDROmorphone 0.5 mg/0.5 ml ISec IVP PRN ×3 (06:15→22:10)
[2017-01-10 07:06] LABS: BILIRUBIN,TOTAL 0.6 mg/dL (0.2-1.3); CALCIUM 8.6 mg/dL (8.4-10.5); POTASSIUM 4.6 mmol/L (3.6-5.0); TOTAL PROTEIN 5.9 g/dL (5.8-8.3)
[2017-01-10 07:13] LABS: BASO # 0.02 K/mm3 (0.0-2.0); BASO % 0.2 % (0.0-3.0); EOS # 0.2 (0.0-0.7); EOS % 2.2 % (1.5-5.0); GRAN # 8.5 (1.4-6.5); GRAN % 77.5 % (50.0-68.0); HEMATOCRIT 26.9 % (36.0-48.0); LYMPH # 1.4 (1.2-3.4); MEAN CELL VOLUME 92.8 fl (80.0-105.0); MEAN CORPUSCULAR HEMOGLOBIN 29.7 pg (25.0-35.0); MEAN PLATELET VOLUME 10.3 fl (7.0-11.0); MONO # 0.8 (0.1-0.6); MONO % 7.1 % (1.0-6.0); RED CELL DISTRIBUTION WIDTH 14.8 % (11.5-14.5)
[2017-01-10] MEDS: Insulin Lispro 1 UNITS/0.01 ML SC SCH ×3 (08:34→17:07)
[2017-01-10] MEDS: Insulin Reg-MEDIUM-Coverage SC SCH ×4 (08:35→22:08)
[2017-01-10] MEDS: Cefepime 1gm in NS 100ml 1 GM/100 ML BAG IVPB SCH (09:25)
--- NOTE | 2017-01-10 16:41 | CP.PCM.PN ---
Subjective - Date & Time of Evaluation Date of Evaluation: 01/10/17 Time of Evaluation: 11:00 - Subjective Subjective: 56 yo F w/ htn, dm, severe , CHF, CAD s/p stent, and ESRD on HD, admitted with sympomatic anemia, catheter related bacteremia; Patient reports urinating more lately (in response to changing lasix to torsemide); reports drinking less fluids/consuming less ice lately; Objective - Vital Signs/Intake and Output Vital Signs (last 24 hours): Temp Pulse Resp BP Pulse Ox 98.3 F 88 20 157/71 H 94 L 01/10/17 06:00 01/10/17 06:00 01/10/17 06:00 01/10/17 09:23 01/10/17 06:00 Intake and Output: 01/10/17 01/10/17 06:59 18:59 Intake Total 660 Output Total 600 Balance 60 - Medications Medications: Current Medications Acetaminophen (Tylenol 325mg Tab) 650 mg PO Q6H PRN PRN Reason: Pain, moderate (4-7) Last Admin: 01/07/17 08:57 Dose: 650 mg Albuterol/Ipratropium (Duoneb 3 Mg/0.5 Mg (3 Ml) Ud) 3 ml IH Q2H PRN PRN Reason: Shortness of Breath Albuterol/Ipratropium (Duoneb 3 Mg/0.5 Mg (3 Ml) Ud) 3 ml IH [id number] [facility] Last Admin: 01/10/17 16:10 Dose: 3 ml Alprazolam (Xanax) 0.5 mg PO TID PRN; Protocol PRN Reason: Anxiety Last Admin: 01/09/17 11:09 Dose: 0.5 mg Amlodipine Besylate (Norvasc) 5 mg PO DAILY [facility] Last Admin: 01/10/17 09:23 Dose: 5 mg Aspirin (Aspirin Chewable) 81 mg PO DAILY [facility] Last Admin: 01/10/17 09:24 Dose: 81 mg Atorvastatin Calcium (Lipitor) 10 mg PO DIN [facility] Last Admin: 01/09/17 17:21 Dose: 10 mg Clopidogrel Bisulfate (Plavix) 75 mg PO DAILY [facility] Last Admin: 01/10/17 09:23 Dose: 75 mg Ferrous Sulfate (Feosol) 324 mg PO BID [facility] Last Admin: 01/10/17 09:24 Dose: 324 mg Hydromorphone HCl (Dilaudid) 0.5 mg IVP Q4H PRN PRN Reason: Pain, severe (8-10) Last Admin: 01/10/17 16:00 Dose: 0.5 mg Vancomycin HCl (Vancomycin 750 Mg In Ns) 750 mg in 250 mls @ 167 mls/hr IVPB MWF [facility] PRN Reason: Protocol Last Admin: 01/08/17 16:59 Dose: 167 mls/hr Cefepime HCl (Maxipime 1gm) 1 gm in 100 mls @ 100 mls/hr IVPB DAILY [facility] PRN Reason: Protocol Last Admin: 01/10/17 09:25 Dose: 100 mls/hr Insulin Detemir (Levemir) 20 unit SC [facility] Last Admin: 01/09/17 22:00 Dose: Not Given Insulin Human Lispro (Humalog) 15 units SC ACTID [facility] Last Admin: 01/10/17 12:10 Dose: 15 units Insulin Human Regular (Humulin R Med) 0 units SC [facility] PRN Reason: Protocol Last Admin: 01/10/17 12:09 Dose: 7 units Metoprolol Tartrate (Lopressor) 50 mg PO BRKDIN [facility] Last Admin: 01/10/17 08:34 Dose: 50 mg Sevelamer HCl (Renagel) 1,600 mg PO TID [facility] Last Admin: 01/10/17 14:15 Dose: 1,600 mg Torsemide (Demadex) 100 mg PO BID [facility] Last Admin: 01/10/17 09:22 Dose: 100 mg Tramadol HCl (Ultram) 50 mg PO TID PRN PRN Reason: Pain, moderate (4-7) Last Admin: 01/10/17 14:18 Dose: 50 mg Trazodone HCl (Desyrel) 50 mg PO [facility] Last Admin: 01/09/17 22:14 Dose: 50 mg - Labs Labs: 01/10/17 06:00 01/10/17 06:00 PT 12.6 SECONDS (9.4-12.5) H 01/03/17 00:08 INR 1.15 (0.93-1.08) H 01/03/17 00:08 APTT 21.7 Seconds (25.1-36.5) L 01/03/17 00:08 - Constitutional Appears: Well, No Acute Distress - Head Exam Head Exam: NORMAL INSPECTION - Eye Exam Eye Exam: Normal appearance. absent: Scleral icterus - ENT Exam ENT Exam: Mucous Membranes Moist - Respiratory Exam Respiratory Exam: absent: Respiratory Distress Additional comments: decreased breath sounds at R base; - Cardiovascular Exam Cardiovascular Exam: RRR, Murmur - GI/Abdominal Exam GI & Abdominal Exam: Soft. absent: Distended, Tenderness - Extremities Exam Additional comments: mild b/l lower leg edema; - Neurological Exam Neurological Exam: Alert, Awake - Psychiatric Exam Psychiatric exam: Normal Affect, Normal Mood - Skin Skin Exam: Warm. absent: Cyanosis Assessment and Plan (1) ESRD (end stage renal disease) Assessment & Plan: Stable volume status; hyponatremia multifactorial (hyperglycemia, increased ADH due to pain), will correct with HD; -next HD tomorrow per routine; Status: Acute (2) Sepsis Assessment & Plan: Coag neg staph bacteremia likely due to HD cath, to be removed tomorrow; will continue vanco qMWF for 2 more weeks per ID; started on cefepime 1g q24h for HCAP, dosed for HD; Status: Acute (3) Anemia Assessment & Plan: Hgb stable s/p prbc transfusion and higher aranesp dose, will continue 100 mcg weekly; Status: Acute (4) Aortic stenosis Assessment & Plan: Severe but relatively asymptomatic, will go back to cardio for TAVR after d/c; Status: Chronic (5) Hypertensive CKD, ESRD on dialysis Assessment & Plan: BP control fluctuating; continue current meds, will benefit from UF on HD and better pain control; Status: Acute (6) Chronic kidney disease-mineral and bone disorder Assessment & Plan: Continue sevelamer 2 tabs w/ meals for phos control; Status: Chronic
--- NOTE | 2017-01-10 20:11 | CP.PCM.PN ---
Subjective - Date & Time of Evaluation Date of Evaluation: 01/10/17 Time of Evaluation: 10:00 - Subjective Subjective: Complaining of pain around cath on right chest, right neck. Hb stable stable. Has not required blood transfusion for past few days. Tolerating PO iron . On hemodialysis for ESRD. Objective - Vital Signs/Intake and Output Vital Signs (last 24 hours): Temp Pulse Resp BP Pulse Ox 98.3 F 88 20 157/71 H 94 L 01/10/17 06:00 01/10/17 06:00 01/10/17 06:00 01/10/17 17:32 01/10/17 06:00 - Medications Medications: Current Medications Acetaminophen (Tylenol 325mg Tab) 650 mg PO Q6H PRN PRN Reason: Pain, moderate (4-7) Last Admin: 01/07/17 08:57 Dose: 650 mg Albuterol/Ipratropium (Duoneb 3 Mg/0.5 Mg (3 Ml) Ud) 3 ml IH Q2H PRN PRN Reason: Shortness of Breath Albuterol/Ipratropium (Duoneb 3 Mg/0.5 Mg (3 Ml) Ud) 3 ml IH [id number] [facility] Last Admin: 01/10/17 16:10 Dose: 3 ml Alprazolam (Xanax) 0.5 mg PO TID PRN; Protocol PRN Reason: Anxiety Last Admin: 01/10/17 18:24 Dose: 0.5 mg Amlodipine Besylate (Norvasc) 5 mg PO DAILY [facility] Last Admin: 01/10/17 09:23 Dose: 5 mg Aspirin (Aspirin Chewable) 81 mg PO DAILY [facility] Last Admin: 01/10/17 09:24 Dose: 81 mg Atorvastatin Calcium (Lipitor) 10 mg PO DIN [facility] Last Admin: 01/10/17 17:33 Dose: 10 mg Clopidogrel Bisulfate (Plavix) 75 mg PO DAILY [facility] Last Admin: 01/10/17 09:23 Dose: 75 mg Ferrous Sulfate (Feosol) 324 mg PO BID [facility] Last Admin: 01/10/17 17:33 Dose: 324 mg Hydromorphone HCl (Dilaudid) 0.5 mg IVP Q4H PRN PRN Reason: Pain, severe (8-10) Last Admin: 01/10/17 16:00 Dose: 0.5 mg Vancomycin HCl (Vancomycin 750 Mg In Ns) 750 mg in 250 mls @ 167 mls/hr IVPB MWF [facility] PRN Reason: Protocol Last Admin: 01/08/17 16:59 Dose: 167 mls/hr Cefepime HCl (Maxipime 1gm) 1 gm in 100 mls @ 100 mls/hr IVPB DAILY [facility] PRN Reason: Protocol Last Admin: 01/10/17 09:25 Dose: 100 mls/hr Insulin Detemir (Levemir) 20 unit SC [facility] Last Admin: 01/09/17 22:00 Dose: Not Given Insulin Human Lispro (Humalog) 15 units SC ACTID [facility] Last Admin: 01/10/17 17:07 Dose: 15 units Insulin Human Regular (Humulin R Med) 0 units SC [facility] PRN Reason: Protocol Last Admin: 01/10/17 17:08 Dose: 3 units Metoprolol Tartrate (Lopressor) 50 mg PO BRKDIN [facility] Last Admin: 01/10/17 17:32 Dose: 50 mg Sevelamer HCl (Renagel) 1,600 mg PO TID [facility] Last Admin: 01/10/17 17:33 Dose: 1,600 mg Torsemide (Demadex) 100 mg PO BID [facility] Last Admin: 01/10/17 17:31 Dose: 100 mg Tramadol HCl (Ultram) 50 mg PO TID PRN PRN Reason: Pain, moderate (4-7) Last Admin: 01/10/17 14:18 Dose: 50 mg Trazodone HCl (Desyrel) 50 mg PO [facility] Last Admin: 01/09/17 22:14 Dose: 50 mg - Labs Labs: 01/10/17 06:00 01/10/17 06:00 PT 12.6 SECONDS (9.4-12.5) H 01/03/17 00:08 INR 1.15 (0.93-1.08) H 01/03/17 00:08 APTT 21.7 Seconds (25.1-36.5) L 01/03/17 00:08 - Constitutional Appears: Well, Non-toxic - Head Exam Head Exam: ATRAUMATIC, NORMAL INSPECTION, NORMOCEPHALIC - Eye Exam Eye Exam: Normal appearance Pupil Exam: NORMAL ACCOMODATION - ENT Exam ENT Exam: Mucous Membranes Moist, Normal Exam - Neck Exam Neck Exam: Full ROM, Normal Inspection - Respiratory Exam Respiratory Exam: Clear to Ausculation Bilateral, NORMAL BREATHING PATTERN - Cardiovascular Exam Cardiovascular Exam: REGULAR RHYTHM, +S1, +S2 - GI/Abdominal Exam GI & Abdominal Exam: Soft, Normal Bowel Sounds - Extremities Exam Extremities Exam: Normal Capillary Refill, Normal Inspection - Back Exam Back Exam: NORMAL INSPECTION - Neurological Exam Neurological Exam: Alert, Normal Gait - Psychiatric Exam Psychiatric exam: Normal Affect - Skin Skin Exam: Pallor Assessment and Plan - Assessment and Plan (Free Text) Assessment: 1. Anemia - multifactorial - iron deficiency, realted to CKD. Tolerating PO iron. On aranesp with HD. Hb , Hct stable. Continue aranesp 200 mcgm monthly. 2. ESRD : on hemodialysis . 3. Pain : right chest, cath scheduled to be removed Wednesday.
[2017-01-10] MEDS: Insulin Detemir 100 units/ml Vial (Levemir) SC SCH (22:09)
[2017-01-11] MEDS: Albuterol-Ipratrop 3 mg / 0.5 (3 ml) UD IH SCH ×4 (03:00→19:07)
[2017-01-11 06:35] LABS: BASO # 0.03 K/mm3 (0.0-2.0); BASO % 0.3 % (0.0-3.0); EOS # 0.3 (0.0-0.7); EOS % 2.3 % (1.5-5.0); GRAN # 8.79 (1.4-6.5); GRAN % 76.5 % (50.0-68.0); HEMATOCRIT 25.7 % (36.0-48.0); LYMPH # 1.6 (1.2-3.4); LYMPH % 13.8 % (22.0-35.0); MEAN CELL VOLUME 89.9 fl (80.0-105.0); MEAN CORPUSCULAR HEMOGLOBIN 30.4 pg (25.0-35.0); MEAN CORPUSCULAR HGB CONC 33.9 g/dl (31.0-37.0); MEAN PLATELET VOLUME 9.7 fl (7.0-11.0); MONO # 0.8 (0.1-0.6); MONO % 7.1 % (1.0-6.0); RED CELL DISTRIBUTION WIDTH 14.6 % (11.5-14.5); WHITE BLOOD COUNT 11.5 10^3/ul (4.5-11.0)
[2017-01-11 06:57] LABS: BILIRUBIN,TOTAL 0.5 mg/dL (0.2-1.3); CALCIUM 8.9 mg/dL (8.4-10.5); TOTAL PROTEIN 5.9 g/dL (5.8-8.3)
[2017-01-11 07:56] LABS: BILIRUBIN,TOTAL 0.5 mg/dL (0.2-1.3); CALCIUM 8.9 mg/dL (8.4-10.5); POTASSIUM 3.1 mmol/L (3.6-5.0)
--- NOTE | 2017-01-11 09:31 | PN ---
SUBJECTIVE: The patient was seen and examined on the dialysis unit. She complains of cough intermittently productive of scant green sputum nut denies hemoptysus, dyspnea, orthopnea, fevers, chills or rigors. OBJECTIVE: VITAL SIGNS: T 98.8, P 75, BP 154/96, RR 20, O2 Saturation 96% on 2L [place] GENERAL: No apparent distress. HEENT: PERRL. EOMI. No scleral icterus. Mild conjunctival pallor is noted. NECK: No JVD. LUNGS: Decreased breath sounds at the bases with R > L. CARDIOVASCULAR: RRR, normal S1 and S2. Grade IV/ EVERARDO to RUSB. ABDOMEN: Normal active bowel sounds. Soft, nontender, nondistended. EXTREMITIES: Trace lower extremity edema bilaterally. NEUROLOGICAL: Awake, alert, and oriented x3. No focal motor deficits. LABORATORY DATA: WBC 11.5 with 76% neutrophils, hemoglobin of 8.7, hematocrit of 26, and platelets of 308. Chemistry reviewed. TECHNICAL SERVICES REP ASSESSMENT: The patient is a 56 year old woman with CAD s/p stent placement, chronic systolic HF, severe , ESRD on HD, COPD and anemia of chronic disease who presented for evaluation of several day history of worsening malaise, fatigue and dyspnea and who was admitted to the telemetry [facility] for management of NSTEMI, symptomatic anemia and MSSA bacteremia. PLAN: 1. MSSA bacteremia, considered secondary to line sepsis. Input from Dr. Stout noted. The patient remains on Vancomycin 750 mg IV Wednesday, Wednesday and Wednesday with hemodialysis. Repeat blood cultures negative. The patient will need 2 weeks of antibiotics s/p removal of PermCath, which we are planning to remove today. 2. HCAP. CXR demonstrates a RLL opacity/infiltrate which may present pneumonia. As above input from Dr. Stout noted and the patient has been started on Cefepime 1 g IV daily. We will order incentive spirometry. 3. 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 Input from Dr. Gonzales noted. Labs with stable H/H. We will pursue GI evaluation with endoscopy/colonoscopy after the patient severe is repaired. In the interm, we will monitored CBC daily and transfuse as needed. 4. NSTEMI. Cardiac catheterization demonstrated patent stents. Continue Aspirin 81 mg p.o. daily, Plavix 75 mg p.o. daily, and Lipitor 40 mg p.o. daily. 5. ESRD on HD. Input from Dr. Gleason noted and appreciated. Continue with care as per the nephrology team. 6. Hypertension. Continue Lopressor 50 mg p.o. b.i.d. and Amlodipine 5 mg p.o. daily. 7. Systolic HF, chronic. Continue with care as per Dr. Chauhan. 8. CAD s/p PCI with stents. Continue with care as per #4. 9. COPD. Continue supplemental oxygen and bronchodilators as needed. 10. IDDM. Continue Levemir 20 units SC QPM and Humalog 15 units SC TID with meals. Continue medium-dosed ISS. 11. Severe . Arrangements will be made for TAVR. 12. Hyperlipidemia. Continue Lipitor 40 mg p.o. daily. 13. Prophylaxis. GI prophylaxis is not indicated as patient is eating. DVT prophylaxis is not indicated as patient is ambulatory. CODE STATUS: Full code. Ole Cardona MD MTDD
[2017-01-11] MEDS: Insulin Lispro 1 UNITS/0.01 ML SC SCH ×3 (10:18→18:49)
[2017-01-11] MEDS: Insulin Reg-MEDIUM-Coverage SC SCH ×3 (10:19→18:48)
--- NOTE | 2017-01-11 10:21 | CP.PCM.PN ---
<Juan Manuel Frya - Last Filed: 01/11/17 14:02> Subjective - Date & Time of Evaluation Date of Evaluation: 01/11/17 Time of Evaluation: 09:00 - Subjective Subjective: Nephrology Note for Dr. Gleason's Service Patient was seen and examined at bedside. Currently receiving dialysis. Admits to a productive cough with yellow/green sputum. Denied fever, chills, headache, chest pain, SOB, abdominal pain, n/v/d/c, or urinary symptoms. Objective - Vital Signs/Intake and Output Vital Signs (last 24 hours): Temp Pulse Resp BP Pulse Ox 98.8 F 75 20 154/96 H 94 L 01/11/17 08:10 01/11/17 08:10 01/11/17 08:10 01/11/17 08:10 01/10/17 06:00 Intake and Output: 01/11/17 01/11/17 06:59 18:59 Intake Total 660 Balance 660 - Medications Medications: Current Medications Acetaminophen (Tylenol 325mg Tab) 650 mg PO Q6H PRN PRN Reason: Pain, moderate (4-7) Last Admin: 01/07/17 08:57 Dose: 650 mg Albuterol/Ipratropium (Duoneb 3 Mg/0.5 Mg (3 Ml) Ud) 3 ml IH Q2H PRN PRN Reason: Shortness of Breath Albuterol/Ipratropium (Duoneb 3 Mg/0.5 Mg (3 Ml) Ud) 3 ml IH [id number] [facility] Last Admin: 01/11/17 08:25 Dose: Not Given Alprazolam (Xanax) 0.5 mg PO TID PRN; Protocol PRN Reason: Anxiety Last Admin: 01/10/17 18:24 Dose: 0.5 mg Amlodipine Besylate (Norvasc) 5 mg PO DAILY [facility] Last Admin: 01/10/17 09:23 Dose: 5 mg Aspirin (Aspirin Chewable) 81 mg PO DAILY [facility] Last Admin: 01/10/17 09:24 Dose: 81 mg Atorvastatin Calcium (Lipitor) 10 mg PO DIN [facility] Last Admin: 01/10/17 17:33 Dose: 10 mg Clopidogrel Bisulfate (Plavix) 75 mg PO DAILY [facility] Last Admin: 01/10/17 09:23 Dose: 75 mg Ferrous Sulfate (Feosol) 324 mg PO BID [facility] Last Admin: 01/10/17 17:33 Dose: 324 mg Hydromorphone HCl (Dilaudid) 0.5 mg IVP Q4H PRN PRN Reason: Pain, severe (8-10) Last Admin: 01/10/17 22:10 Dose: 0.5 mg Vancomycin HCl (Vancomycin 750 Mg In Ns) 750 mg in 250 mls @ 167 mls/hr IVPB MWF [facility] PRN Reason: Protocol Last Admin: 01/08/17 16:59 Dose: 167 mls/hr Cefepime HCl (Maxipime 1gm) 1 gm in 100 mls @ 100 mls/hr IVPB DAILY [facility] PRN Reason: Protocol Last Admin: 01/10/17 09:25 Dose: 100 mls/hr Insulin Detemir (Levemir) 20 unit SC HS [facility] Last Admin: 01/10/17 22:09 Dose: 20 unit Insulin Human Lispro (Humalog) 15 units SC ACTID [facility] Last Admin: 01/10/17 17:07 Dose: 15 units Insulin Human Regular (Humulin R Med) 0 units SC ACHS [facility] PRN Reason: Protocol Last Admin: 01/10/17 22:08 Dose: Not Given Metoprolol Tartrate (Lopressor) 50 mg PO BRKDIN [facility] Last Admin: 01/10/17 17:32 Dose: 50 mg Sevelamer HCl (Renagel) 1,600 mg PO TID [facility] Last Admin: 01/10/17 17:33 Dose: 1,600 mg Torsemide (Demadex) 100 mg PO BID [facility] Last Admin: 01/10/17 17:31 Dose: 100 mg Tramadol HCl (Ultram) 50 mg PO TID PRN PRN Reason: Pain, moderate (4-7) Last Admin: 01/10/17 14:18 Dose: 50 mg Trazodone HCl (Desyrel) 50 mg PO HS [facility] Last Admin: 01/10/17 22:08 Dose: 50 mg - Labs Labs: 01/11/17 05:30 01/11/17 07:39 PT 12.6 SECONDS (9.4-12.5) H 01/03/17 00:08 INR 1.15 (0.93-1.08) H 01/03/17 00:08 APTT 21.7 Seconds (25.1-36.5) L 01/03/17 00:08 - Additional Findings Additional findings: - Constitutional Appears: Well, No Acute Distress - Head Exam Head Exam: NORMAL INSPECTION - Eye Exam Eye Exam: Normal appearance. absent: Scleral icterus - ENT Exam ENT Exam: Mucous Membranes Moist - Respiratory Exam Respiratory Exam: absent: Respiratory Distress Additional comments: decreased breath sounds at R base; - Cardiovascular Exam Cardiovascular Exam: RRR, Murmur - GI/Abdominal Exam GI & Abdominal Exam: Soft. absent: Distended, Tenderness - Extremities Exam Additional comments: mild b/l lower leg edema; - Neurological Exam Neurological Exam: Alert, Awake - Psychiatric Exam Psychiatric exam: Normal Affect, Normal Mood - Skin Skin Exam: Warm. absent: Cyanosis Assessment and Plan - Assessment and Plan (Free Text) Plan: (1) ESRD (end stage renal disease) Assessment & Plan: Stable volume status; hyponatremia multifactorial (hyperglycemia, increased ADH due to pain), will correct with HD; - Undergoing HD today - Wire will be placed over the catheter- to remain in place- continue with IV abx with dialysis - patient will need to have fistula re-evaluated as outpatient by IR (2) Sepsis Assessment & Plan: Coag neg staph bacteremia likely due to HD cath, to be removed today; will continue vanco qMWF for 2 more weeks per ID; started on cefepime 1g q24h for HCAP, dosed for HD; (3) Anemia Assessment & Plan: Hgb stable s/p prbc transfusion and higher aranesp dose, will continue 100 mcg weekly; (4) Aortic stenosis Assessment & Plan: Severe but relatively asymptomatic, will go back to cardio for TAVR after d/c; (5) Hypertensive CKD, ESRD on dialysis Assessment & Plan: BP control fluctuating; continue current meds, will benefit from UF on HD and better pain control; (6) Chronic kidney disease-mineral and bone disorder Assessment & Plan: Continue sevelamer 2 tabs w/ meals for phos control; Ang [address] DO, PGY-1 <Tom Gleason - Last Filed: 01/11/17 18:31> Objective - Vital Signs/Intake and Output Vital Signs (last 24 hours): Temp Pulse Resp BP Pulse Ox 99.1 F 81 18 146/60 100 01/11/17 17:24 01/11/17 17:24 01/11/17 17:24 01/11/17 17:24 01/11/17 17:24 Intake and Output: 01/11/17 01/11/17 06:59 18:59 Intake Total 660 Balance 660 - Medications Medications: Current Medications Acetaminophen (Tylenol 325mg Tab) 650 mg PO Q6H PRN PRN Reason: Pain, moderate (4-7) Last Admin: 01/07/17 08:57 Dose: 650 mg Albuterol/Ipratropium (Duoneb 3 Mg/0.5 Mg (3 Ml) Ud) 3 ml IH Q2H PRN PRN Reason: Shortness of Breath Albuterol/Ipratropium (Duoneb 3 Mg/0.5 Mg (3 Ml) Ud) 3 ml IH [id number] [facility] Last Admin: 01/11/17 13:53 Dose: 3 ml Alprazolam (Xanax) 0.5 mg PO TID PRN; Protocol PRN Reason: Anxiety Last Admin: 01/10/17 18:24 Dose: 0.5 mg Amlodipine Besylate (Norvasc) 5 mg PO DAILY [facility] Last Admin: 01/11/17 13:08 Dose: 5 mg Aspirin (Aspirin Chewable) 81 mg PO DAILY [facility] Last Admin: 01/11/17 13:08 Dose: 81 mg Atorvastatin Calcium (Lipitor) 10 mg PO DIN [facility] Last Admin: 01/10/17 17:33 Dose: 10 mg Clopidogrel Bisulfate (Plavix) 75 mg PO DAILY [facility] Last Admin: 01/11/17 13:07 Dose: 75 mg Ferrous Sulfate (Feosol) 324 mg PO BID [facility] Last Admin: 01/11/17 13:21 Dose: 324 mg Hydromorphone HCl (Dilaudid) 0.5 mg IVP Q4H PRN PRN Reason: Pain, severe (8-10) Last Admin: 01/11/17 12:55 Dose: 0.5 mg Vancomycin HCl (Vancomycin 750 Mg In Ns) 750 mg in 250 mls @ 167 mls/hr IVPB MWF [facility] PRN Reason: Protocol Last Admin: 01/08/17 16:59 Dose: 167 mls/hr Cefepime HCl (Maxipime 1gm) 1 gm in 100 mls @ 100 mls/hr IVPB DAILY [facility] PRN Reason: Protocol Last Admin: 01/11/17 13:28 Dose: 100 mls/hr Insulin Detemir (Levemir) 20 unit SC HS [facility] Last Admin: 01/10/17 22:09 Dose: 20 unit Insulin Human Lispro (Humalog) 15 units SC ACTID [facility] Last Admin: 01/11/17 13:08 Dose: Not Given Insulin Human Regular (Humulin R Med) 0 units SC ACHS [facility] PRN Reason: Protocol Last Admin: 01/11/17 13:22 Dose: Not Given Metoprolol Tartrate (Lopressor) 50 mg PO BRKDIN [facility] Last Admin: 01/11/17 13:05 Dose: 50 mg Ondansetron HCl (Zofran Inj) 4 mg IVP Q6H PRN PRN Reason: Nausea/Vomiting Sevelamer HCl (Renagel) 1,600 mg PO TID [facility] Last Admin: 01/11/17 13:07 Dose: Not Given Torsemide (Demadex) 100 mg PO BID [facility] Last Admin: 01/11/17 13:05 Dose: 100 mg Tramadol HCl (Ultram) 50 mg PO TID PRN PRN Reason: Pain, moderate (4-7) Last Admin: 01/10/17 14:18 Dose: 50 mg Trazodone HCl (Desyrel) 50 mg PO [facility] Last Admin: 01/10/17 22:08 Dose: 50 mg - Labs Labs: 01/11/17 05:30 01/11/17 07:39 PT 12.6 SECONDS (9.4-12.5) H 01/03/17 00:08 INR 1.15 (0.93-1.08) H 01/03/17 00:08 APTT 21.7 Seconds (25.1-36.5) L 01/03/17 00:08 Assessment and Plan (1) ESRD (end stage renal disease) Status: Acute (2) Sepsis Status: Acute (3) Anemia Status: Acute (4) Aortic stenosis Status: Chronic (5) Hypertensive CKD, ESRD on dialysis Status: Acute (6) Chronic kidney disease-mineral and bone disorder Status: Chronic Attending/Attestation - Attestation I have personally seen and examined this patient.: Yes I have fully participated in the care of the patient.: Yes I have reviewed all pertinent clinical information, including history, physical exam and plan: Yes Notes (Text): Patient seen and examined; I agree with the resident's note as above with the following edits: 56 yo F w/ CAD s/p stent, htn, dm, severe , CHF and ESRD on HD, admitted with symptomatic anemia; Patient still reporting pleuritic chest pain; started HD today via L arm AVF without incident, however, experienced high access pressures from arterial inflow with collapse of vessel; repeat cannulation closer to anastamosis did not change outcome, therefore, had to go back to using HD catheter for inflow; Coag neg staph bacteremia likely due to HD cath, on [facility] qMWF; catheter exchanged over wire today; initially scheduled to be removed today but plan changed after above mishap; ideally would want catheter in new location, however , this may lead to future compromise of AV access sites in HD patient; Discussed with IR; possibility of AVF stenosis close to anastamosis site (more proximal cephalic vein angioplasty done last week); for now will monitor and try to use AVF again on Wednesday; may need another fistulogram and balloon procedure (can be done as outpatient); HCAP, on cefepime 1 g daily, dosed for ESRD; Anemia relatively stable, continue PO iron; Hypertensive CKD/ESRD, continue current meds; high BP possibly from pain; CKD MBD, continue sevelamer 2 tabs w/ meals for phos control;
[2017-01-11] MEDS: HYDROmorphone 0.5 mg/0.5 ml ISec IVP PRN ×2 (12:55→18:32)
[2017-01-11] MEDS: Cefepime 1gm in NS 100ml 1 GM/100 ML BAG IVPB SCH (13:28)
[2017-01-11] MEDS ORDERED: Lidocaine 2% Inj (20ml) ONE ×2 (15:26→16:29)
[2017-01-11] MEDS ORDERED: Midazolam 2 MG/2 ML VIAL ONE (15:45)
[2017-01-11 17:30] VITALS: RESP 18; TEMP 99.1; O2SAT 100
[2017-01-11] MEDS: Vancomycin 750mg 750 MG/250 ML BAG IVPB SCH (18:38)
[2017-01-11 18:45] VITALS: BP 96/57; PULSE 83
--- NOTE | 2017-01-11 19:21 | VASCULAR ---
PROCEDURE: Replace tunneled right IJ dialysis catheter. CLINICAL HISTORY: End stage renal disease. Malfunctioning left upper extremity AV fistula. Possible infected catheter. Needs change. PHYSICIAN(S): William Hendricks M.D. TECHNIQUE: The relative risks and indications for the procedure were explained to the patient and consent obtained. The patient was placed supine on the arteriogram table and the tunneled right IJ dialysis catheter prepped and draped in the usual sterile fashion. Antibiotics were given prior to the procedure. 1% Xylocaine was used to anesthetize the skin soft tissues at the vein insertion site. A 2 cm incision was performed and the catheter bluntly dissected. Both ends of the catheter controlled and the catheter transected. The cuff and soft tissue portion of the catheter were anesthetized with 1% Xylocaine. Blunt dissection was performed. The cuffed portion of the catheter was removed. A 0.035 angled Glidewire was advanced through the catheter fragment and placed in the IVC. The old catheter was removed. The sheath was placed for the new catheter insertion. A 23cm Mcdowell 2 catheter was advanced with its tip in the right atrium. A new retrograde tunnel below right clavicle was performed. The catheter was trimmed and the hub attached. Both ports aspirate and inject easily. The catheter was secured. The incision was closed with interrupted sutures. The catheter tip was sent for culture FINDINGS: IMPRESSION: 1. Replacement of the patient's tunneled right IJ dialysis catheter. A 23cm Mcdowell 2 catheter was placed with its tip in the right atrium. 2. The catheter tip was sent for culture
--- NOTE | 2017-01-11 19:29 | PN ---
DATE: 01/11/2017 SUBJECTIVE: The patient is seen in a chair. She underwent hemodialysis today, but her AV shunt was nonfunctioning she denies any rectal bleeding, melena, abdominal pain, nausea, vomiting. PHYSICAL EXAMINATION: VITAL SIGNS: Reveal temperature of 98.8, blood pressure 154/96, heart rate is 75. HEENT: Reveal sclerae to be white. Conjunctivae pink. NECK: Supple. CHEST: Reveal lungs to be clear. HEART: Reveals a regular rate and rhythm. ABDOMEN: Soft, nontender. EXTREMITIES: She has an AV shunt in her left arm. LABORATORY DATA: Reveal hemoglobin of 8.7, this has been stable over the last 5 days. Chemistries reveal BUN 35, creatinine 4.7. IMPRESSION: 1. Anemia of chronic disease. 2. End-stage renal disease. 3. Critical aortic stenosis. 4. Nonfunctioning AV shunt. RECOMMENDATIONS: 1. The patient is to have replacement of her Perm-A-Cath and she is found to have staph sepsis. 2. Repeat attempt at thrombolysis of her AV shunt. 3. Continue iron replacement as well as PPI. Hima Gonzales MD
--- NOTE | 2017-01-12 11:11 | DS ---
ADMITTING DIAGNOSIS: Chest pain, rule out acute coronary syndrome. DISCHARGE DIAGNOSIS: Non ST elevation myocardial infarction. SECONDARY DIAGNOSES: CAD s/p PCI with stent placement, CHF (systolic, chronic), severe , ESRD on HD , COPD, hypertension, hyperlipidemia, anxiety disorder, IDDM, MSSA bacteremia and HCAP CONSULTATIONS: Dr. Huang (ID), Dr. Gonzales (GI), Dr. Rubi (Heme/Onc), Dr. Gleason (Nephrology ), Dr. Hendricks (IR) and Dr. Chauhan (Cardiology). IMAGING STUDIES: 1. Chest x-ray which demonstrated bilateral pulmonary venous congestion. 2. CT of the abdomen/pelvis with p.o. contrast which demonstrated bilateral pleural effusions and trace pelvic ascites. 3. Ultrasound of the right lower extremity which demonstrated no evidence of DVT. PROCEDURES: 1. Cardiac catheterization which demonstrated patent stents. 2. IR dilatation of left upper extremity AV fistula. 3. IR exchange of tunneled right IJ dialysis catheter. HISTORY OF PRESENT ILLNESS: The patient is a 56 year old woman with multiple medical comorbidities including CAD s/p PCI with stent placement, CHF, severe and COPD who presented with a several day history of progressively worsening substernal chest discomfort, lethargy and malaise. She reported increasing fatigability over the preceding several days associated with marked dyspnea with exertion. She denied melena, hematochezia, vaginal bleed, bright red blood per rectum or hemoptysis associated with her symptoms. Given her underlying cardiac comorbidities she opted for ED evaluation. Upon arrival to the ED she was afebrile and hemodynamically stable. Physical examination was largely unremarkable however laboratory studies on admission demonstrated a hemoglobin of 6.8 (baseline 9-10) and an elevated troponin of 0.78. An EKG obtained in the ED demonstrated no changes as compared to prior. She was subsequently admitted to the telemetry villeda for management of NSTEMI and symptomatic anemia. HOSPITAL COURSE: Upon admission to the telemetry villeda she was evaluated by Dr. Chauhan of Cardiology. She was taken to the cardiac catheterization lab and underwent successful catheterization which demonstrated patent stents. Given her normal cardiac catheterization it was felt that the etiology of her chest discomfort was likely demand ischemia secondary to an acute drop in her hemoglobin. She was transfused 2 units of PRBCs with an improvement in hemoglobin to 9.6. Over the following 36 hours she was noted to have a continued drop in her hemoglobin down to 8.3 and it remained in the 8-9 range for the duration of her hospital stay. Dr. Gonzales of GI was consulted as was Dr. Rubi of Heme/Onc for further workup. 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 After conferring with the patient, Dr. Gonzales and Dr. Chauhan it was felt most prudent to pursue GI evaluation after repair of the patient's critical as she was considered a high risk candidate for either general anesthesia or sedation. Arrangements have previously been made with [facility] for TAVR however they were postponed pending maturation of her AV fistula. Her hospital course was then complicated by development of MSSA bacteremia that was felt secondary to her right IJ Perm-A-Cath dialysis access. Dr. Huang of ID was consulted and the patient was started on Vancomycin. A TTE was negative for intracardiac vegetations and repeat blood cultures were negative. At this point in time she underwent exchange of her dialysis access catheter and recommendations were made for 2 weeks of antibiotic therapy. By hospital day # 9 the patient was demonstrating clinical improvement but was quite deconditioned. A TCU evaluation was placed and she was then transferred to TCU for continued PT and antibiotic therapy. CONDITION: Fair, improved. DISPOSITION: TCU. DISCHARGE MEDICATIONS: Aspirin 81 mg p.o. daily, Plavix 75 mg p.o. daily, Lipitor 40 mg p.o. daily, Lopressor 50 mg p.o. b.i.d., Amlodipine 5 mg p.o. daily, Levemir 20 units sc q.p.m., Humalog 15 units sc t.i.d. with meals, Xanax 0.5 mg p.o. b.i.d., Vancomycin 750 mg IV // and Cefepime 1 g IV daily. FOLLOWUP: The patient will be followed up by her PMD and the consultants while on the TCU. Ole Cardona MD MTDD
== END 2017-01-11 20:02 | DRG 252 ==
LOC: ED 23:21 → ERH 01-03 01:00 → 2RSO 01-03 02:44 → 3RSO 01-07 11:30 → 3RNO 01-10 13:13
PROVIDERS: ADMIT Student in an Organized Health Care Education/Training Program; ATTEND Student in an Organized Health Care Education/Training Program
PROC: 30233N1 Transfusion of Nonautologous Red Blood Cells into Peripheral Vein, Percutaneous Approach (ICD-10-PCS; 2017-01-03)
PROC: 3E0F7GC Introduction of Other Therapeutic Substance into Respiratory Tract, Via Natural or Artificial Opening (ICD-10-PCS; 2017-01-03)
PROC: 4A023N7 Measurement of Cardiac Sampling and Pressure, Left Heart, Percutaneous Approach (ICD-10-PCS; principal; 2017-01-04)
PROC: B211YZZ Fluoroscopy of Multiple Coronary Arteries using Other Contrast (ICD-10-PCS; 2017-01-04)
PROC: B215YZZ Fluoroscopy of Left Heart using Other Contrast (ICD-10-PCS; 2017-01-04)
PROC: 057F3ZZ Dilation of Left Cephalic Vein, Percutaneous Approach (ICD-10-PCS; 2017-01-06)
PROC: 5A1D70Z Performance of Urinary Filtration, Intermittent, Less than 6 Hours Per Day (ICD-10-PCS; 2017-01-06)
PROC: B51WYZZ Fluoroscopy of Dialysis Shunt/Fistula using Other Contrast (ICD-10-PCS; 2017-01-06)
PROC: 0J2TXYZ Change Other Device in Trunk Subcutaneous Tissue and Fascia, External Approach (ICD-10-PCS; 2017-01-11)
DX: I21.A1 Myocardial infarction type 2 (principal); A41.1 Sepsis due to other specified staphylococcus; I50.23 Acute on chronic systolic (congestive) heart failure; J18.9 Pneumonia, unspecified organism; E10.10 Type 1 diabetes mellitus with ketoacidosis without coma; N17.9 Acute kidney failure, unspecified; N18.6 End stage renal disease; D50.9 Iron deficiency anemia, unspecified; D63.1 Anemia in chronic kidney disease; I13.2 Hypertensive heart and chronic kidney disease with heart failure and with stage 5 chronic kidney disease, or end stage renal disease; J44.0 Chronic obstructive pulmonary disease with (acute) lower respiratory infection; T82.7XXA Infection and inflammatory reaction due to other cardiac and vascular devices, implants and grafts, initial encounter; T82.858A Stenosis of other vascular prosthetic devices, implants and grafts, initial encounter; E10.22 Type 1 diabetes mellitus with diabetic chronic kidney disease; I35.0 Nonrheumatic aortic (valve) stenosis; Z99.2 Dependence on renal dialysis; E78.00 Pure hypercholesterolemia, unspecified; Y84.8 Other medical procedures as the cause of abnormal reaction of the patient, or of later complication, without mention of misadventure at the time of the procedure; I25.118 Atherosclerotic heart disease of native coronary artery with other forms of angina pectoris; K55.20 Angiodysplasia of colon without hemorrhage; M89.9 Disorder of bone, unspecified; F41.9 Anxiety disorder, unspecified; Y95 Nosocomial condition; Y83.2 Surgical operation with anastomosis, bypass or graft as the cause of abnormal reaction of the patient, or of later complication, without mention of misadventure at the time of the procedure; Z95.5 Presence of coronary angioplasty implant and graft; Z79.4 Long term (current) use of insulin; Z79.82 Long term (current) use of aspirin; Z79.02 Long term (current) use of antithrombotics/antiplatelets; Y92.009 Unspecified place in unspecified non-institutional (private) residence as the place of occurrence of the external cause; Z87.891 Personal history of nicotine dependence

== ENCOUNTER 2017-01-11 20:02 | Inpatient (IN) | payer OTHER ==
[2017-01-11 20:33] VITALS: BMI 24.2
[2017-01-11] MEDS ORDERED: HYDROmorphone 0.5 mg/0.5 ml ISec IVP PRN (20:35)
[2017-01-11 20:38] VITALS: BP 132/66; PULSE 85; RESP 20; TEMP 98.1
[2017-01-11] MEDS ORDERED: Albuterol-Ipratrop 3 mg / 0.5 (3 ml) UD IH PRN (20:49)
[2017-01-11] MEDS ORDERED: Insulin Detemir 100 units/ml Vial (Levemir) SC SCH (22:00)
[2017-01-11] MEDS ORDERED: Insulin Reg-MEDIUM-Coverage SC SCH (22:00)
[2017-01-11] MEDS ORDERED: Sodium Chloride 0.9% 250 ML IV STA (23:59)
--- NOTE | 2017-01-12 01:30 | CP.PCM.PN ---
Subjective - Date & Time of Evaluation Date of Evaluation: 01/12/17 Time of Evaluation: 01:23 - Subjective Subjective: Responded to [employer] announcement. Patient had been to rest room. Had dizziness. Became hypoxic. Pulse ox was 70% on 5L/min. When I came she was getting nebulizer treatment , pulse ox was 78 %. BP was 88/50 to 94/56 . A bolus of 250 CC normal saline was given.BP came up to 96/66. Patient had complaint of chest pain later on, toradol 15 mg IV was given. CBC,CMP, troponin, s. lactate,ABG, EKG,CXR were ordered. EKG showed lateral wall subendocardial ischemic changes. Discussed with Dr.Adrian Cardona. Patient was transferred to ER. Endorsed to Steve from TCU, to when I went with patient to ER. Objective - Vital Signs/Intake and Output Vital Signs (last 24 hours): Temp Pulse Resp BP Pulse Ox 98.1 F 85 20 132/66 01/11/17 20:38 01/11/17 20:38 01/11/17 20:38 01/11/17 20:38 - Medications Medications: Current Medications Acetaminophen (Tylenol 325mg Tab) 650 mg PO Q6H PRN; Protocol PRN Reason: Pain, moderate (4-7) Albuterol/Ipratropium (Duoneb 3 Mg/0.5 Mg (3 Ml) Ud) 3 ml IH [id number] [facility] PRN Reason: Protocol Albuterol/Ipratropium (Duoneb 3 Mg/0.5 Mg (3 Ml) Ud) 3 ml IH Q2H PRN; Protocol PRN Reason: Shortness of Breath Alprazolam (Xanax) 0.5 mg PO TID PRN; Protocol PRN Reason: Anxiety Amlodipine Besylate (Norvasc) 5 mg PO DAILY [facility] PRN Reason: Protocol Aspirin (Aspirin Chewable) 81 mg PO 0800 [facility] PRN Reason: Protocol Atorvastatin Calcium (Lipitor) 10 mg PO DIN [facility] PRN Reason: Protocol Clopidogrel Bisulfate (Plavix) 75 mg PO 0800 [facility] PRN Reason: Protocol Docusate Sodium (Colace) 100 mg PO BID [facility] PRN Reason: Protocol Last Admin: 01/11/17 22:28 Dose: 100 mg Ferrous Sulfate (Feosol) 324 mg PO BID [facility] PRN Reason: Protocol Hydromorphone HCl (Dilaudid) 0.5 mg IVP Q4H PRN; Protocol PRN Reason: Pain, severe (8-10) Cefepime HCl (Maxipime 1gm) 1 gm in 100 mls @ 100 mls/hr IVPB 0600 [facility] PRN Reason: Protocol Vancomycin HCl (Vancomycin 750 Mg In Ns) 750 mg in 250 mls @ 167 mls/hr IVPB MWF [facility] PRN Reason: Protocol Insulin Detemir (Levemir) 20 unit SC HS [facility] PRN Reason: Protocol Last Admin: 01/11/17 22:30 Dose: 20 unit Insulin Human Lispro (Humalog) 15 units SC ACTID [facility] PRN Reason: Protocol Insulin Human Regular (Humulin R Med) 0 units SC ACHS [facility] PRN Reason: Protocol Last Admin: 01/11/17 22:29 Dose: Not Given Metoprolol Tartrate (Lopressor) 50 mg PO BRKDIN [facility] PRN Reason: Protocol Sennosides (Senokot Tab) 17.2 mg PO HS [facility] PRN Reason: Protocol Last Admin: 01/11/17 22:31 Dose: 17.2 mg Sevelamer HCl (Renagel) 1,600 mg PO TID [facility] PRN Reason: Protocol Torsemide (Demadex) 100 mg PO BID [facility] PRN Reason: Protocol Tramadol HCl (Ultram) 50 mg PO TID PRN; Protocol PRN Reason: Pain, moderate (4-7) Trazodone HCl (Desyrel) 50 mg PO HS [facility] PRN Reason: Protocol Last Admin: 01/11/17 22:28 Dose: 50 mg
--- NOTE | 2017-01-12 01:32 | CP.PCM.PN ---
Subjective - Date & Time of Evaluation Date of Evaluation: 01/12/17 Time of Evaluation: 01:30 - Subjective Subjective: Patient had Coded. Went back to ER. Notified Dr.A Cardona that we were running a CODE. Spoke to Lulu @ [phone] and told that we were running a CODE. Objective - Vital Signs/Intake and Output Vital Signs (last 24 hours): Temp Pulse Resp BP Pulse Ox 98.1 F 85 20 132/66 01/11/17 20:38 01/11/17 20:38 01/11/17 20:38 01/11/17 20:38 - Medications Medications: Current Medications Acetaminophen (Tylenol 325mg Tab) 650 mg PO Q6H PRN; Protocol PRN Reason: Pain, moderate (4-7) Albuterol/Ipratropium (Duoneb 3 Mg/0.5 Mg (3 Ml) Ud) 3 ml IH [id number] [facility] PRN Reason: Protocol Albuterol/Ipratropium (Duoneb 3 Mg/0.5 Mg (3 Ml) Ud) 3 ml IH Q2H PRN; Protocol PRN Reason: Shortness of Breath Alprazolam (Xanax) 0.5 mg PO TID PRN; Protocol PRN Reason: Anxiety Amlodipine Besylate (Norvasc) 5 mg PO DAILY [facility] PRN Reason: Protocol Aspirin (Aspirin Chewable) 81 mg PO 0800 [facility] PRN Reason: Protocol Atorvastatin Calcium (Lipitor) 10 mg PO DIN [facility] PRN Reason: Protocol Clopidogrel Bisulfate (Plavix) 75 mg PO 0800 [facility] PRN Reason: Protocol Docusate Sodium (Colace) 100 mg PO BID [facility] PRN Reason: Protocol Last Admin: 01/11/17 22:28 Dose: 100 mg Ferrous Sulfate (Feosol) 324 mg PO BID [facility] PRN Reason: Protocol Hydromorphone HCl (Dilaudid) 0.5 mg IVP Q4H PRN; Protocol PRN Reason: Pain, severe (8-10) Cefepime HCl (Maxipime 1gm) 1 gm in 100 mls @ 100 mls/hr IVPB 0600 [facility] PRN Reason: Protocol Vancomycin HCl (Vancomycin 750 Mg In Ns) 750 mg in 250 mls @ 167 mls/hr IVPB MWF [facility] PRN Reason: Protocol Insulin Detemir (Levemir) 20 unit SC HS [facility] PRN Reason: Protocol Last Admin: 01/11/17 22:30 Dose: 20 unit Insulin Human Lispro (Humalog) 15 units SC ACTID [facility] PRN Reason: Protocol Insulin Human Regular (Humulin R Med) 0 units SC ACHS [facility] PRN Reason: Protocol Last Admin: 01/11/17 22:29 Dose: Not Given Metoprolol Tartrate (Lopressor) 50 mg PO BRKDIN [facility] PRN Reason: Protocol Sennosides (Senokot Tab) 17.2 mg PO HS [facility] PRN Reason: Protocol Last Admin: 01/11/17 22:31 Dose: 17.2 mg Sevelamer HCl (Renagel) 1,600 mg PO TID [facility] PRN Reason: Protocol Torsemide (Demadex) 100 mg PO BID [facility] PRN Reason: Protocol Tramadol HCl (Ultram) 50 mg PO TID PRN; Protocol PRN Reason: Pain, moderate (4-7) Trazodone HCl (Desyrel) 50 mg PO HS [facility] PRN Reason: Protocol Last Admin: 01/11/17 22:28 Dose: 50 mg
[2017-01-12] MEDS ORDERED: Albuterol-Ipratrop 3 mg / 0.5 (3 ml) UD IH SCH (02:00)
[2017-01-12] MEDS ORDERED: Cefepime 1gm in NS 100ml 1 GM/100 ML BAG IVPB SCH (06:00)
[2017-01-12] MEDS ORDERED: Insulin Lispro 1 UNITS/0.01 ML SC SCH (07:30)
--- NOTE | 2017-01-12 09:01 | RAD ---
HISTORY: sob COMPARISON: 01/09/2017 FINDINGS: LUNGS: Bilateral lower lobe opacities, right greater left. Possible pneumonia. Right basilar opacity slightly increased compared to prior and left basilar opacity unchanged. PLEURA: Small right pleural effusion. Possible very small left pleural effusion. No pneumothorax. CARDIOVASCULAR: Normal heart size. Right tunneled central venous dialysis catheter. OSSEOUS STRUCTURES: No significant abnormalities. VISUALIZED UPPER ABDOMEN: Normal. OTHER FINDINGS: None. IMPRESSION: Bibasilar opacities and small bilateral pleural effusions, right greater than left.
--- NOTE | 2017-01-12 10:56 | HP ---
HISTORY OF PRESENT ILLNESS: The patient is a 56 year old woman with a past medical history of CAD s/p PCI with stent placement, chronic systolic HF, severe (pending TAVR), COPD and ESRD on HD who initially presented to [facility] with substernal chest pain, dyspnea and malaise. She underwent cardiac catheterization with Dr. Chauhan which demonstrated patent stents and was subsequently managed on the telemetry villeda for NSTEMI, symptomatic anemia and continued dialysis for her underling ESRD. Her hospital course was complicated by development of MSSA bacteremia secondary to line sepsis from her dialysis access Permacath for which she was started on Vancomycin 750mg IV M// with HD. When repeat blood cultures resulted as negative, she underwent line exchange with Dr. William Hendricks of IR. She also developed HCAP for which Cefepime 1gm IV Daily was added to her regimen. Given her prolonged hospital stay and her multiple medical comorbidities, she became quite deconditioned and arrangements were made for TCU evaluation for continued PT and antibiotic therapy. By hospital day #9 she was accepted to TCU and successfully transferred. PAST MEDICAL HISTORY: As per HPI, also anemia of chronic disease, IDDM, hypertension, hyperlipidemia and anxiety disorder. PAST SURGICAL HISTORY: As per HPI. MEDICATIONS: Aspirin 81 mg p.o. daily, Plavix 75 mg p.o. daily, Lipitor 40 mg p.o. daily, Norvasc 5 mg p.o. daily, Lopressor 50 mg p.o. b.i.d., Levemir 20 units SC QPM, Humalog 15 units SC TID with meals and Trazodone 50 mg p.o. at bedtime. ALLERGIES: IRON SUCROSE COMPLEX. FAMILY HISTORY: Noncontributory. SOCIAL HISTORY: The patient reports a former 30-pack years smoking history but quit approximately 16 months ago. She reports social alcohol use and denies illicit drug abuse. REVIEW OF SYSTEMS: A 14-point review of systems is negative except as per HPI. PHYSICAL EXAMINATION: VITAL SIGNS: T 98.1, P 85, BP 132/66, RR 20 and O2 saturation of 97% on 2L NC GENERAL: No apparent distress. HEENT: PERRL. EOMI. Mild conjunctival pallor is noted. No scleral icterus is noted. NECK: No JVD. LUNGS: Decreased breath sounds at the bases. CARDIOVASCULAR: Regular rate and rhythm. Normal S1 and S2. Grade IV/ EVERARDO to RUSB ABDOMEN: Normoactive bowel sounds. Soft, nontender, and nondistended. EXTREMITIES: Trace lower extremity edema bilaterally. NEUROLOGIC: Awake, alert, and oriented x3. No focal motor deficit. LABORATORY DATA: Morning labs are pending. ASSESSMENT: The patient is a 56 year old woman with CAD s/p PCI with stent placement, chronic systolic HF, severe , ESRD on HD, COPD and anemia of chronic disease who was initially admitted for management of NSTEMI and symptomatic anemia whose hospital course was complicated by HCAP and MSSA bacteremia secondary to line sepsis who was subsequently transferred to the TCU for continued PT and antibiotic therapy PLAN: 1. MSSA bacteremia, consider secondary to line sepsis. Input from Dr. Stout noted. The patient remains on Vancomycin 750 mg IV Wednesday, Wednesday and Wednesday with hemodialysis. Repeat blood cultures are negative. The patient's PermCath has been exchanged by Dr. William Hendricks of IR. She will required 2 weeks of IV antibiotics. 2. HCAP. CXR demonstrates a RLL opacity/infiltrate. As above input from Dr. Stout noted and Cefepime 1 g IV daily has been added. Continue to monitor for fever leukocytosis. Continue with incentive spirometry. 3. 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 Input from Dr. Gonzales noted. Labs with stable H/H. We will pursue GI evaluation with endoscopy/ colonoscopy after repair of her severe . In the interm we will continue to monitored CBC daily and transfuse as needed. 4. NSTEMI. Cardiac catheterization demonstrated patent stents. Continue Aspirin 81 mg p.o. daily, Plavix 75 mg p.o. daily and Lipitor 40 mg p.o. daily. 5. ESRD on HD. Input from Dr. Gleason noted and appreciated. Continue with care as per the nephrology team. 6. Hypertension. Blood pressure controlled. Continue Lopressor 50 mg p.o. b.i.d. and Amlodipine 5 mg p.o. daily. 7. Systolic heart failure, chronic. Continue care as per Dr. Chauhan. 8. CAD s/p PCI with stents. Continue with care as per #4. 9. COPD. Continue supplemental oxygen and bronchodilators as needed. 10. IDDM. Continue Levemir 20 units SC QPM, Humalog 15 units SC TID with meals and medium dose ISS. 11. Severe . Arrangements to be made for TAVR once the patient's MSSA bacteremia resolves. 12. Hyperlipidemia. Continue Lipitor 40 mg p.o. daily. 13. Prophylaxis. GI prophylaxis is not indicated as patient is eating. DVT prophylaxis is not indicated as the patient is ambulatory. CODE STATUS: Full code. Ole Cardona MD MTDD
--- NOTE | 2017-01-12 22:21 | CARD ---
APPROVED REPORT EKG Measurement Heart [id number] <Conclusion> Normal sinus rhythm Marked ST abnormality, possible inferior subendocardial injury Marked ST abnormality, possible anterolateral subendocardial injury Abnormal ECG
--- NOTE | 2017-01-12 23:14 | DS ---
ADMITTING DIAGNOSES: MSSA bacteremia, healthcare-associated pneumonia. DISCHARGE DIAGNOSES: MSSA bacteremia, healthcare-associated pneumonia. SECONDARY DIAGNOSES: CAD s/p PCI with stent placement, CHF (systolic, chronic), severe , ESRD on HD , COPD, hypertension, hyperlipidemia, anxiety disorder and insulin-dependent diabetes mellitus. CONSULTATIONS: Dr. Huang (ID), Dr. Gonzales (GI), Dr. Rubi (Heme/Onc), Dr. Gleason (Nephrology ), Dr. Chauhan (Cardiology). HISTORY OF PRESENT ILLNESS: The patient is a 56 year old woman with a past medical history of CAD s/p PCI with stent placement, chronic systolic HF, severe (pending TAVR), COPD and ESRD on hemodialysis who initially presented to [facility] with substernal chest pain, dyspnea and malaise. She underwent cardiac catheterization with Dr. Chauhan which demonstrated patent stents and was subsequently managed on the telemetry villeda for NSTEMI, symptomatic anemia and continued dialysis for her underlying end-stage renal disease. Her hospital course was complicated by development of MSSA bacteremia secondary to line sepsis from her dialysis access Perm-A-Cath for which she was started on Vancomycin 750 mg IV M// with hemodialysis. When repeat blood cultures resulted as negative she underwent line exchange with Dr. William Hendricks of . She also developed healthcare-associated pneumonia for which Cefepime 1 g IV daily was added to her regimen. Given her prolonged hospital stay and her multiple medical comorbidities, she became quite deconditioned and was subsequently transferred to the TCU for continued physical therapy and antibiotic therapy. HOSPITAL COURSE: Upon admission to the TCU the patient was maintained on all her medications from the inpatient unit. Her initial stay in the TCU was unremarkable however, several hours later, she was noted to complain of mild chest discomfort. Upon assessment by the nursing staff, she was found to be hypotensive with the systolic blood pressure in the 90s and hypoxic with a pulse oximetry reading in the 70s. She was evaluated by Dr. Riley (house physician) and was subsequently taken to the ED for further evaluation and possible readmission to the inpatient unit. While in the ED the patient coded and despite valiant efforts by the staff, she . She was pronounced at 01:30 a.m. DISPOSITION: The patient . Ole Cardona MD [facility] # [id number] MTDDavid
[2017-01-13] MEDS ORDERED: Vancomycin 750mg 750 MG/250 ML BAG IVPB SCH (06:00)
== END 2017-01-12 00:37 | disposition short-term general hospital (02) | DRG 949 ==
LOC: TRCU 20:02
PROVIDERS: ADMIT Student in an Organized Health Care Education/Training Program; ATTEND Student in an Organized Health Care Education/Training Program
DX: T82.7XXD Infection and inflammatory reaction due to other cardiac and vascular devices, implants and grafts, subsequent encounter (principal); A41.01 Sepsis due to Methicillin susceptible Staphylococcus aureus; I21.A1 Myocardial infarction type 2; Z79.2 Long term (current) use of antibiotics; J18.9 Pneumonia, unspecified organism; I13.2 Hypertensive heart and chronic kidney disease with heart failure and with stage 5 chronic kidney disease, or end stage renal disease; N18.6 End stage renal disease; I50.22 Chronic systolic (congestive) heart failure; J44.0 Chronic obstructive pulmonary disease with (acute) lower respiratory infection; E11.22 Type 2 diabetes mellitus with diabetic chronic kidney disease; I25.10 Atherosclerotic heart disease of native coronary artery without angina pectoris; E78.5 Hyperlipidemia, unspecified; Y95 Nosocomial condition; D63.1 Anemia in chronic kidney disease; Z79.4 Long term (current) use of insulin; I35.0 Nonrheumatic aortic (valve) stenosis; F41.9 Anxiety disorder, unspecified; R09.02 Hypoxemia; Y84.8 Other medical procedures as the cause of abnormal reaction of the patient, or of later complication, without mention of misadventure at the time of the procedure; Z99.2 Dependence on renal dialysis; Z95.5 Presence of coronary angioplasty implant and graft; Z87.891 Personal history of nicotine dependence

== ENCOUNTER 2017-01-12 00:37 | Emergency (ER) | payer MEDICARE, OTHER ==
[2017-01-12 00:39] VITALS: BMI 24.3
[2017-01-12] MEDS ORDERED: Sodium Bicarbonate (8.4%) 50 Meq Syringe ONE (00:52)
--- NOTE | 2017-01-12 01:41 | ED PDOC ---
Arrival/HPI - General Chief Complaint: Shortness Of Breath Time Seen by Provider: 01/12/17 01:15 Historian: Other (TCU nurse) - History of Present Illness Narrative History of Present Illness (Text): 01/12/17 01:44 A 56 year old female, whose past medical history includes CAD with coronary stents, IDDM, CHF, anemia and stage IV chronic kidney disease, was brought to the emergency department from TCU for respiratory distress. Patient in acute respiratory distress, patient was showing cardiac ischemia from upstairs EKG, subsequently deteriorated rapidly, resp 100% rebreather, 70s stat within 5 minutes of arrival. PMD: Dr. Cardona Time/Duration: Prior to Arrival Symptom Onset: Sudden Symptom Course: Unchanged Activities at Onset: Rest Context: Other ([facility]) Past Medical History - Provider Review Nursing Documentation Reviewed: Yes - Infectious Disease Hx of Infectious Diseases: None - Tetanus Immunization Tetanus Immunization: Unknown - Reproductive Menopause: Yes - Cardiac Hx Congestive Heart Failure: Yes Hx Hypertension: Yes Other/Comment: aortic stenosis - Pulmonary Hx Chronic Obstructive Pulmonary Disease (COPD): Yes Hx Pneumonia: Yes - Neurological Hx Dizziness: Yes Hx Transient Ischemic Attacks (TIA): Yes - HEENT Hx HEENT Disorder: No - Renal Hx Dialysis: Yes Date of Last Dialysis Treatment: 01/02/17 - Endocrine/Metabolic Hx Diabetes Mellitus Type 1: Yes - Hematological/Oncological Hx Blood Disorders: Yes - Integumentary Hx Dermatological Disorder: Yes (BILATERAL LEG EDEMA + 2,DEPENDENT EDEMA MAINLY TO ABOVE KNEE AREA.TATTOOS.) - Musculoskeletal/Rheumatological Hx Arthritis: Yes - Gastrointestinal Hx Gastrointestinal Disorders: No - Genitourinary/Gynecological Hx Genitourinary Disorders: No (REMOVAL OF PRECANCEROUS CELLS/ UTERUS) - Psychiatric Hx Depression: Yes Hx Substance Use: No - Surgical History Hx Cardiac Catheterization: Yes (04/2015) Hx Coronary Stent: Yes (CX/RCA) - Anesthesia Hx Anesthesia: Yes Hx Anesthesia Reactions: No Hx Malignant Hyperthermia: No - Suicidal Assessment Feels Threatened In Home Enviroment: No Family/Social History - Physician Review Nursing Documentation Reviewed: Yes Family/Social History: No Known Family HX Smoking Status: Former Smoker Hx Alcohol Use: No Hx Substance Use: No Hx Substance Use Treatment: No Allergies/Home Meds Allergies/Adverse Reactions: Allergies iron sucrose complex [From Venofer] Allergy (Severe, Verified 01/11/17 20:32) ITCHING,SWELLING OCCURED 11/07 9AM AT HOSPITAL. ONLY REPORTED ITCHING, NO SOB Home Medications: Home Meds Medication Instructions Recorded Confirmed Alprazolam 0.5 mg PO BID PRN 04/19/15 01/11/17 Review of Systems - Review of Systems Systems not reviewed;Unavailable: Acuity of Condition Physical Exam - Physical Exam Physical Exam Limitations: Clinical Condition Vital Signs Temp Resp Pulse Ox 01/12/17 00:50 99.4 F 01/12/17 00:42 24 88 L Respiratory Rate: Other (CPR) Medical Decision Making ED Course and Treatment: 01/12/17 01:40 Impression: A 56 year old female with respiratory distress. Prior Visits: Notes and results from previous visits were reviewed. Patient was last seen in the emergency department on 01/02/17 for evaluation of shortness of breath. Progress Notes: 7.5 ET tube size, good color change, patient subsequently had full cardiac arrest CPR at 00:40. Patient recieved total 3 rounds epinephrine, 1 atropine, 300 mg amiodarone. Patient had transient v fib at 200 x 3. Patient had no return of spontaneous circulation, despite 20 minutes of acls protocol, terminated at 12:59. pulse check 00:45 epi 00:45 bicarb 00:46 epi 00:47 CaCl 00:50 bicarb 00:51 epi 00:52 shock 00:57 2nd shock 00:57 epi 00:58 300 mg amio 00:58 course V fib 3rd shock 00:59 time of 00:59 Patient was intubated. PROCEDURE: INTUBATION Performed by the emergency provider Time: 00:40 Consent: Discussion of the risks, benefits, and alternatives to the procedure, along with informed consent was precluded by the urgency of the procedure and the patient condition. Timeout: A timeout to verify the correct patient, procedure, and site was performed. Indication: 81% on non-rebreather Pre-oxygenation: [id number] Medications: See MAR for details. ETT Size: 7.5 Confirmation: Cords directly visualized as tube passed, good bilateral breath sounds, positive CO2 detector color change, tube fogging, adequate chest rise, improving pulse oximetry reading, improved skin color, and absence of gastric sounds,. ETT Secured: The cuff was inflated and the tube was secured appropriately at a distance of 24 cm at the lip. CO2 detector confirmed placement and b/l breath sounds. Post-Procedure: There were no immediate complications. Patient suffered from myocardial infarction and subsequent arrhythmia. Review of labs showed chronic anemia and renal failure. - Scribe Statement The provider has reviewed the documentation as recorded by the Tona Blake Provider Scribe Attestation: All medical record entries made by the Scribe were at my direction and personally dictated by me. I have reviewed the chart and agree that the record accurately reflects my personal performance of the history, physical exam, medical decision making, and the department course for this patient. I have also personally directed, reviewed, and agree with the discharge instructions and disposition. Disposition/Present on Arrival - Present on Arrival Any Indicators Present on Arrival: No History of DVT/PE: No History of Uncontrolled Diabetes: Yes Urinary Catheter: No History of Decub. Ulcer: No History Surgical Site Infection Following: None - Disposition Have Diagnosis and Disposition been Completed?: Yes Diagnosis: Cardiopulmonary arrest Disposition: WITH WITHOUT AUTOPSY Disposition Time: 01:00 Condition: Forms: [employer] ([employer])
[2017-01-12 02:37] VITALS: TEMP 99.4
[2017-01-12 03:54] VITALS: RESP 24; O2SAT 88
== END 2017-01-12 06:42 ==
LOC: ED 00:37
DX: I46.9 Cardiac arrest, cause unspecified (principal); I12.9 Hypertensive chronic kidney disease with stage 1 through stage 4 chronic kidney disease, or unspecified chronic kidney disease; N18.4 Chronic kidney disease, stage 4 (severe); Z99.2 Dependence on renal dialysis; Z87.891 Personal history of nicotine dependence; I25.10 Atherosclerotic heart disease of native coronary artery without angina pectoris; E10.9 Type 1 diabetes mellitus without complications; I50.9 Heart failure, unspecified; J44.9 Chronic obstructive pulmonary disease, unspecified; Z79.4 Long term (current) use of insulin